=== PATIENT | male | born 1945 | race American Indian/Alaskan Native ===

== ENCOUNTER 2017-12-15 07:18 | Day surgery (SDC) | payer BC, SELFPAY ==
--- NOTE | 2017-12-14 09:14 | W.PIPPEYE ---
History of Present Illness Chief Complaint: Progressive decreased vision, right eye [facility] Medical History Cortical cataract of right eye (Chronic) Nuclear sclerotic cataract of right eye (Chronic) Social History Smoking/Tobacco Use Status: Never Surgical History S/P cataract surgery (Resolved 12/01/17) Colonoscopy - IV Sedation (11/13/15) Coronary Stent Repair of umbilical hernia Meds Home Medications Medication Instructions Recorded Confirmed Type aspirin [Aspir-81] 81 mg PO HS tab-cap 08/28/15 12/01/17 History atorvastatin 40 mg PO DAILY tab-cap 08/28/15 12/01/17 History clopidogrel [Plavix] 75 mg PO DAILY tab-cap 08/28/15 12/01/17 History losartan 100 mg PO HS tab-cap 08/28/15 12/01/17 History nitroglycerin [Nitrostat] 0.4 mg SUBLINGUAL ONCE tab-cap 08/28/15 11/25/17 History sildenafil [Viagra] 100 mg PO PRN PRN tab-cap 08/28/15 11/25/17 History diltiazem HCl 240 mg PO DAILY 11/25/17 12/01/17 History hydrochlorothiazide 25 mg PO DAILY 11/26/17 12/01/17 History Allergies Allergy/AdvReac Type Severity Reaction Status Date / Time ramipril AdvReac Unverified 12/01/17 06:55 Exam OCULAR EXAM:: Visual acuity at distance: 20/100 right eye, 20/20 left eye Pupils: Pupils equal, round, and reactive without afferent pupillary defect IOP: 15 right eye, 16 left eye Extraocular Motility: Normal Pertinent Slit Lamp Findings: Significant for a well-positioned PCIOL, left eye. A 2+ nuclear and 2+ cortical cataract is present in the right eye. Pupils dilate to 6 mm in each eye. Dilated Funduscopic Examination: Disc cupping is 0.45 OD, 0.5 OS. The optic nerves have good perfusion and normal color. The retinal vasculature is normal without significant tortuosity or abnormality. The maculas are normal in appearance with normal contour and foveal reflex appropriate for age. The peripheral retina and vitreous are normal. BRIGHTNESS ACUITY TESTING (BAT):: Off 20/40, right eye Low: 20/50 Medium: 20/50 High: 20/70 Assessment and Plan (1) Nuclear sclerotic cataract of right eye: Current visit: No Status: Chronic Assessment: Visually significant cataract, right eye. Plan: Cataract extraction with intraocular lens implantation, right eye (2) Cortical cataract of right eye: Current visit: No Status: Chronic Assessment: Visually significant cataract, right eye. Plan: Cataract extraction with intraocular lens implantation, right eye Note: NOTE:: The details of the planned surgery, including the risks, indications,limitations,expectations,outcome and possible complications were explained to the patient. The patient understands the complications including, but not limited to: infection, hemorrhage, posterior dislocation of the lens or nuclear fragments which may require the intervention of a vitreoretinal surgeon, possible loss of the eye, or from anesthetic complications. The patient has been made aware of the option of not having surgery, that vision following surgery may not be equal to that prior to surgery, and that the planned surgery may not achieve the intended results. Following this discussion, which the patient appeared to understand, the patient wishes to proceed with cataract surgery with lens implantation of the affected eye to improve and maximize vision.
[2017-12-15 07:37] VITALS: BP 144/87; PULSE 68; RESP 16; TEMP 37; O2SAT 96
[2017-12-15 08:44] VITALS: BP 144/87; PULSE 68; RESP 16; TEMP 37; O2SAT 96
[2017-12-15] MEDS: Balanced Salt Soln.-PLUS 500 ML BAG (09:09)
[2017-12-15] MEDS: Lidocaine 1% Pres-Free 5 ML VIAL (09:11)
[2017-12-15] MEDS: Lidocaine 2% Jelly 6 ML SYR (09:12)
[2017-12-15] MEDS: Povidone-Iodine Ophth 30 ML BTL (09:29)
--- NOTE | 2017-12-15 09:36 | PDOC.DSDIS_ITS ---
Discharge Plan Discharge Details Attending Provider: Negro Chatterjee Primary Care Provider: Vandana Valladares [place] Meds and New Rx's Prescriptions: No Action atorvastatin 40 MG tablet 40 mg PO DAILY RF: 0 clopidogrel [Plavix] 75 MG tablet 75 mg PO DAILY RF: 0 aspirin [Aspir-81] 81 MG tablet,delayed release (DR/EC) 81 mg PO HS RF: 0 sildenafil [Viagra] 100 MG tablet 100 mg PO PRN PRNRF: 0 nitroglycerin [Nitrostat] 0.4 MG tablet, sublingual 0.4 mg Sublingual ONCE RF: 0 losartan 100 MG tablet 100 mg PO HS RF: 0 diltiazem HCl 240 MG capsule,extended release 24hr 240 mg PO DAILY RF: 0 hydrochlorothiazide 25 MG tablet 25 mg PO DAILY RF: 0 naproxen sodium [Aleve] 220 mg Capsule 220 mg PO RF: 0 Discharge Instructions Stand Alone Forms: Post-op Topical Cataract, Inna Calloway (DSU) DS: Diagnosis Discharge Diagnosis (1) Nuclear sclerotic cataract of right eye: Status: Resolved (2) Cortical cataract of right eye: Status: Resolved
--- NOTE | 2017-12-15 09:37 | W.PM.OP ---
Date of service: 12/15/17 Time of Service: 09:37 Operative Note Pre-op diagnosis: Cataract, right eye Post-op diagnosis: same Procedure: Cataract extraction using phacoemulsification with intraocular lens implant, right eye Surgeon: Negro Chatterjee Anesthesia: MAC (with local sub-tenon's anesthetic injection) Pathology: none sent Complications: None Patient was transported to: same day Patient's condition: stable Indications: Progressive vision loss due to cataract, right eye Procedure Description: CATARACT SURGERY OPERATIVE REPORT PREOPERATIVE DIAGNOSIS: Nuclear/cortical cataract, right eye POSTOPERATIVE DIAGNOSIS: Same OPERATION: Cataract extraction using phacoemulsification with posterior chamber intraocular lens implant, right eye. IOL: IOL Clinical Research Administrator/Model: [employer] / ROYCE Tecnis ZCB00 IOL Power: +21.0 diopters IOL Serial Number: [id number] Optic Diameter: 6.0 mm Haptic/Overall Diameter: 13.0 mm PHACO INFO: Rui EnGeneICurion Vision System with OZil and Active Fluidics Cumulative Dispersed Energy (CDE): 6.17 seconds SURGEON: Negro Chatterjee MD, MAVERICK ANESTHESIA: Monitored Anesthesia Care (MAC), with local sub-tenon's anesthetic infiltration COMPLICATIONS: None SPECIMENS: None INDICATIONS FOR PROCEDURE: The patient is a 72-year-old gentleman with history of diminished visual acuity in both eyes secondary to the development of bilateral nuclear and cortical cataracts. He is already undergone cataract surgery in his left eye on 12/01/2017. Postoperatively he has regained corrected visual acuity of 20/20 in the left eye. He now presents for cataract surgery in the right eye. PROCEDURE: The correct surgical eye was identified and marked as the right eye and the pupil was dilated in the preoperative area using mydriatics, cycloplegics, and NSAIDS (except in aspirin allergic patients). The dilated pupil size was 7.0 mm. Oral sedation was administered in the form of an Imprimis MKO Melt (midazolam 3mg/ketamine 25mg/ondansetron 2mg). The patient was brought to the operating room where cardiopulmonary monitoring was instituted and surgical time-out was performed, confirming the correct operative eye and IOL power. Topical anesthesia was administered and ophthalmic povidone-iodine 5% was instilled into the conjunctival fornices. Lidocaine gel was applied to the cornea and the jos-ocular area was prepped with Betadine 10% solution and draped in the usual sterile fashion for intraocular surgery. Steri-strips were used to cover the lashes and lid margins and an adhesive eye drape was placed. Care was taken to isolate the lashes and lid margins under the Steri-strips and adhesive eye drape. A lid speculum was placed between the lids of the operative eye and the Asad-Maureen operating microscope was maneuvered into position. Annie scissors were then used to make a conjunctival buttonhole approximately 6mm posterior to the limbus in the inferonasal quadrant. Blunt dissection was carried out to expose bare sclera, and a blunt-tipped sub-tenon?s anesthesia cannula was introduced and passed posteriorly along the globe where non-preserved plain lidocaine was injected into posterior sub-Tenon?s space. A sideport knife was used to make a paracentesis port at the 7:00 postion and the anterior chamber was filled with Healon GV. A 2.4mm keratome knife was used to create a half-thickness groove at the limbus and then to construct a three-plane near-clear corneal tunnel extending 2.0mm into clear cornea at the 10:00 position. A flap was raised on the anterior capsule and capsulorhexis forceps were used to complete a continuous curvilinear capsulorhexis of 5.0mm. Balanced salt solution was then used to perform cortical cleaving hydrodissection and nuclear hydrodelineation until the lens could be freely rotated within the capsular bag. The lens nucleus was then disassembled and removed within the capsular bag and iris plane using phacoemulsification. Residual cortical material was removed using the 45-degree angled silicone I/A tip with 0.3mm port. The posterior capsule was carefully polished to remove as much residual lens epithelial cells as safely possible. The capsular bag was then inflated and the anterior chamber deepened with viscoelastic. The lens implant described above was inserted into the capsular bag using the ROYCE [place] Injector. A Kuglen hook was used to dial the IOL into position. Residual viscoelastic was then removed first from posterior to the IOL, then from the anterior chamber using the I/A handpiece. The lens implant was noted to center nicely within the capsular bag. The incisions were stromally hydrated, and the anterior chamber was reformed using BSS. Then 0.4cc of moxifloxacin 1.5mg/ml were injected into the capsular bag and anterior chamber. The incisions were checked with a Weck spear and found to be secure. Several drops of ophthalmic povidone-iodine 5% were then applied to the eye followed by two drops of Imprimis combination moxifloxacin/dexamethasone solution. The drapes were removed and a clear plastic protective eye shield was placed over the eye. The patient was then returned to [facility] in stable condition.
[2017-12-15 09:56] VITALS: BP 123/85; PULSE 67; RESP 16; TEMP 36.5; O2SAT 94
--- NOTE | 2017-12-15 14:08 | NUR.NOTE ---
Addendum entered by Mellissa Miller 12/15/17 14:15: 1415: wrong chart, please dismiss Original Note: Nursing Note: 1328: Dr. Lloyd in to see pt. and after talking to Nancy Castellanos, from [facility], who expressed concern about if pt. were to go home (specifically on pain medications or if pt. were to run a fever) she would be home alone, case decided to be postponed until it can be arranged for patient to stay overnight for observation
== END 2017-12-15 10:12 ==
LOC: SUR 07:19
PROVIDERS: PCP Family Medicine; Visit Provider Ophthalmology
PROC: (CPT 66984; principal; 2017-12-15 09:30)
DX: H25.11 Age-related nuclear cataract, right eye (principal); H25.011 Cortical age-related cataract, right eye; I10 Essential (primary) hypertension
CPT/HCPCS: 66984; V2632

== ENCOUNTER 2017-12-26 12:40 | Outpatient (REF) | payer BC, SELFPAY ==
[2017-12-26 13:21] LABS: Anion Gap 9.9 mmol/L (3-11); BUN 24 mg/dL (7-18); CO2 26.1 mmol/L (21.0-32.0); CREATININE 1.22 mg/dL (0.70-1.30); Chloride 104 mmol/L (98-107); Estimated GFR 58.39 (mL/min/1.73m2); Glucose 112 mg/dL (70-100); Potassium 4.6 mmol/L (3.5-5.1); Sodium 140 mmol/L (136-145)
[2017-12-26 13:37] LABS: Hemoglobin A1C 5.9 % (4.5-6.2)
== END 2017-12-26 13:00 ==
LOC: NCHCN 12:40
PROVIDERS: PCP Family Medicine; Visit Provider Family Medicine
DX: I10 Essential (primary) hypertension (principal); R73.01 Impaired fasting glucose
CPT/HCPCS: 80048; 83036

== ENCOUNTER 2018-01-26 17:41 | Outpatient (REF) | payer BC, SELFPAY ==
--- NOTE | 2018-01-26 11:34 | SKI_PTH ---
PATIENT: Taco Khan LOC: [facility] U#:[id number] AGE/SX: 72/M ROOM: RE01/26/[address]: ETHEL Hood : 1945 BED: DIS: 01/26/2018 SPEC #: [id number] RECD: 01/26/18 17:47 STATUS: SHANE REQ #: [id number] KWABENA: 01/26/18 11:[address]: Jerod Victoria DEPT: Surgical Specimen RECD BY: Shala Clarke ENTERED: 01/26/18 17:48 SP TYPE: DUANE PUENTE DR: Vandana Valladares Tissues: 1 - SKIN BIOPSY(SHAVE/PUNCH) 2 - SKIN BIOPSY(SHAVE/PUNCH) 3 - SKIN BIOPSY(SHAVE/PUNCH) 4 - SKIN BIOPSY(SHAVE/PUNCH) Procedures: SKIN LEVEL 4 Comments: [id number]
== END 2018-01-26 18:01 ==
LOC: LBN 17:41
PROVIDERS: PCP Family Medicine; Visit Provider Physician Assistant
DX: C44.212 Basal cell carcinoma of skin of right ear and external auricular canal (principal); L57.0 Actinic keratosis; L82.1 Other seborrheic keratosis
CPT/HCPCS: 88305

== ENCOUNTER 2018-03-09 12:25 | Outpatient (REF) | payer BC, SELFPAY ==
--- NOTE | 2018-03-09 08:50 | SKI_PTH ---
PATIENT: Taco Khan LOC: [facility] U#:[id number] AGE/SX: 72/M ROOM: RE03/09/[address]: Gurpreet Tinoco DO : 1945 BED: DIS: 03/09/2018 SPEC #: [id number] RECD: 03/10/18 11:38 STATUS: SHANE REQ #: [id number] KWABENA: 03/09/18 08:[address]: Gurpreet Tinoco DEPT: Surgical Specimen RECD BY: Shala Clarke ENTERED: 03/10/18 11:39 SP TYPE: DUANE OT DR: Vandana Valladares Tissues: 1 - SKIN BIOPSY(SHAVE/PUNCH) Procedures: SKIN LEVEL 4 Comments: [id number]
== END 2018-03-09 12:45 ==
LOC: LBN 12:25
PROVIDERS: PCP Family Medicine; Visit Provider Otolaryngology Otolaryngology/Facial Plastic Surgery
DX: L82.1 Other seborrheic keratosis (principal)
CPT/HCPCS: 88305

== ENCOUNTER 2018-05-16 18:50 | Inpatient (IN) | payer BC, SELFPAY ==
[2018-05-16] VITALS (24 sets, daily range): BP systolic 127–153; BP diastolic 64–87; PULSE 63–76; RESP 14–20; TEMP 37; O2SAT 90–100
--- NOTE | 2018-05-16 10:55 | DI.RAD_ITS ---
SYMPTOM/DIAGNOSIS: S/P CHEST TUBE CHEST X-RAY: 05/16/18 There has been interval placement of a right chest tube. There is a small right apical pneumothorax. The lungs are otherwise clear. Heart size and pulmonary vasculature are within normal limits. There are multiple right rib fractures again appreciated. IMPRESSION: Interval placement of right chest tube with small residual right apical pneumothorax.
--- NOTE | 2018-05-16 19:15 | DI.CT_ITS ---
SYMPTOM/DIAGNOSIS: FALL, SEVERE RT RIB AND RT UPPER ABD PAIN CT CHEST, ABDOMEN AND PELVIS: No priors. CT ABDOMEN AND PELVIS: The liver is normal in size. No hepatic mass or laceration is seen. The portal superior mesenteric and splenic veins are patent. The gallbladder is negative. No biliary ductal dilatation seen. The pancreas, spleen and adrenal glands are unremarkable. The kidneys show normal and symmetric enhancement. No evidence of a solid renal mass or obstruction seen. The urinary bladder is intact. The reproductive organs are unremarkable. There is diverticulosis of the colon but no evidence of acute diverticulitis. No evidence of bowel obstruction or inflammation. There is a normal appendix present. The abdominal aorta is of normal caliber. No significant abdominal or pelvic adenopathy, ascites or pneumoperitoneum seen. No acute fractures seen in the lumbar spine or pelvis. Note is made of Grade 1 spondylolisthesis of L5 on S1. Multi-level degenerative changes are seen in the lumbar spine. Note is made of bilateral fat containing inguinal hernia. IMPRESSION: No evidence of an acute abdominal or pelvic process. CT CHEST: The thoracic aorta is of normal caliber. No aneurysm or dissection seen. Heart size is within normal limits. No significant pericardial effusion seen. No significant thoracic adenopathy is identified. There is a moderate size right pneumothorax. No definite left pneumothorax is identified. There are bilateral pulmonary infiltrates seen in the dependent portions of the lungs. This may represent atelectasis. Pulmonary contusions cannot be excluded. There is a small amount of subcutaneous air along the right lateral chest wall. There are nondisplaced fractures involving the lateral aspects of the right 5th and 6th ribs. There are mildly displaced fractures involving the lateral aspects of the right 7th and 8th ribs and there is a nondisplaced fracture involving the lateral aspect of the right 9th rib laterally. IMPRESSION: 1. Multiple contiguous right rib fractures 2. Resulting moderate size right pneumothorax 3. Pulmonary opacities seen in the lung bases bilaterally. These may represent atelectasis but pulmonary contusions cannot be excluded. 4. Subcutaneous emphysema along the right lateral chest wall.
[2018-05-16] MEDS: MORPHine 10 MG/ML VIAL 4 MG IVP (19:32)
[2018-05-16] MEDS: Ondansetron 4 MG/2 ML VIAL (19:44)
[2018-05-16] MEDS: Lidocaine 5% Patch 1 PATCH TP (19:51)
[2018-05-16] MEDS: ACETAMINOPHEN 1,000 MG/100 ML BTL 400 MG IVPB (19:53)
[2018-05-16 20:15] LABS: Abs Immature Grans 0.04 k/cumm (0.0-0.09); Absolute Basophil Count 0.02 k/cumm (0.0-0.2); Absolute Eosinophil Count 0.24 k/cumm (0.0-0.7); Absolute Lymphocyte Count 2.41 k/cumm (1.2-3.4); Absolute Monocyte Count 0.89 k/cumm (0.11-0.7); Absolute Neutrophil Count 5.69 k/cumm (1.2-6.7); Basophils % 0.2; Eosinophils % 2.6; HCT 40.3 % (40.0-50.0); HGB 13.3 g/dL (13.5-17.5); Immature Grans % 0.4; Lymphocytes % 25.9; Mean Corpuscular Hemoglobin 30.4 pg (27.0-33.0); Mean Corpuscular Volume 92.2 fL (80-95); Mean Platelet Volume 9.6 fL (8.0-11.0); Monocytes % 9.6; Neutrophils % 61.3; Platelet Count 216 x1000/uL (130-400); RBC 4.37 m/cumm (4.50-6.00); RBC Distribution Width 12.8 % (11.8-14.1); White Blood Cell Count 9.29 k/cumm (4.4-10.8)
--- NOTE | 2018-05-16 20:23 | ED.GENADUL_ITS ---
Discharge Plan Disposition Patient Disposition: [facility] INPATIENT Condition: Good Discharge Details Chief Complaint: Chest/Rib Clinical Impression: Pneumothorax, Fracture of multiple ribs of right side Reason For Visit: 5 RIGHT RIB FRACTURES Admit Date/Time: 05/16/18 22:20 Admit Provider: Efren Singh III Attending Provider: Efren Singh III Primary Care Provider: Vandana Valladares ED Provider: Alejandro Raines Discharge Data Discharge Date/Time-TO BE ENTERED AT DEPARTURE: 05/17/18 00:52 Medical Decision Making This is a 72-year-old male with a past medical history of coronary artery disease and stents who presents today for evaluation of right rib pain. Roughly 1 hour prior to arrival the patient slipped on ice, and landed on his right ribs and had notable severe pain. He came in for further evaluation. The patient has severe notable pain throughout his right ribs, no paradoxical chest wall movement. The pain is located near the right hemidiaphragm, and I am concerned for potential involvement with the liver. Patient no longer takes Plavix but does take aspirin, because of the amount of pain that he has, and the location we will get a CT scan to rule out any acute fracture, process or bleed. We will treat with Lidoderm patch, narcotics, and Tylenol for management of his pain. Radiology has contacted us and states that there is evidence of 5 rib fractures on the right, as well as a pneumothorax which they are calling 45%. We have contacted the surgeon Dr. Singh and discussed the case with him. He will come into place a chest tube. We have contacted anesthesia and they will block the ribs for pain control. Patient continues to remain hemodynamically stable and shows no signs of tension pneumothorax. Patient will be admitted for further management. I have extensively reviewed the treatment plan with the patient. I have addressed all patient concerns at this time. I have also discussed the plan with the admitting physician and they agree with the current assessment and plan and have agreed to assume responsibility for the patient. All parties demonstrate verbal understanding and agreement with our assessment and plan at this time. FINDINGS: Lungs: Bilateral dependent atelectasis is appreciated. Patchy and groundglass airspace opacities are noted at the bilateral lung bases, which may represent atelectasis versus contusion changes. Pleural space: There is a moderately sized right pneumothorax. Increased left subdural lucency may be related to artifact versus a trace left pneumothorax. Heart: There is mild atherosclerotic calcification of the coronary arteries. There is calcification of the aortic valve annulus. The heart is not enlarged. No pericardial thickening or effusion. Pulmonary arteries: Normal in course and caliber. Aorta: The aorta demonstrates mild atherosclerotic calcification. Normal course and caliber to the aorta otherwise. Lymph nodes: No adenopathy. Bones/joints: Fractures of the right fifth, sixth, seventh, eighth, and ninth, ribs; worse at the eighth rib where there is approximately half shaft width lateral displacement of the distal fracture fragment. No other acutely displaced skeletal fractures. Multilevel degenerative changes of the thoracic spine are noted. Soft tissues: Diffuse soft tissue swelling and soft tissue emphysema throughout the right lateral thoracic wall. Upper abdomen: Please review abdomen and pelvic CT performed concomitantly. IMPRESSION: 1. Moderately sized right pneumothorax. 2. Increased diffuse left subpleural lucency may be related to volume averaging artifact versus a trace left pneumothorax. Followup recommended. 3. Bilateral lower lobe atelectasis with concern for superimposed pulmonary contusions in this post traumatic setting. 4. Multilevel right rib fractures, as detailed above. 5. Soft tissue swelling and soft tissue emphysema throughout the right lateral thoracic wall. FINDINGS: Lower thorax: No acute findings. ABDOMEN: Liver: Normal. No mass. Gallbladder and bile ducts: Normal. No calcified stones. No ductal dilation. Pancreas: Normal. No ductal dilation. Spleen: Normal. No splenomegaly. Adrenals: Normal. No mass. Kidneys and ureters: Normal. No hydronephrosis. Stomach and bowel: No bowel wall thickening, obstruction, or other acute pathology. Diffuse colonic diverticulosis is present. Appendix: No evidence of appendicitis. PELVIS: Bladder: Unremarkable as visualized. Reproductive: Unremarkable as visualized. ABDOMEN and PELVIS: Intraperitoneal space: Normal. No free air. No significant fluid collection. Bones/joints: No acute skeletal pathology. Moderate multilevel degenerative changes of the spine, as manifested by multilevel anterior osteophytes and multilevel decrease in intervertebral disc space. There is a grade 1 chronic anterolisthesis of L5 in relation to S1 with extensive degenerative disease as manifested by fusion of L5-S1 and a large anterior osteophyte. 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 Soft tissues: Unremarkable. Vasculature: The vasculature demonstrates diffuse moderate atherosclerotic calcification. Lymph nodes: Normal. No enlarged lymph nodes. IMPRESSION: 1. Negative for acute abdominopelvic pathology. 2. Chronic/incidental findings as detailed above. Dictated and Authenticated by: Gino Aviles MD. HPI General Date/Time Provider Initiated Documentation: 05/16/18 18:51 . HPI Narrative: This is a 72-year-old male with past medical history of cardiac disease, high cholesterol, and hypertension, who presents today for evaluation of right-sided chest pain after fall. Patient states that he was with his earlier today when he slipped on the ice after dinner and landed on his right chest. He immediately lost his breath, and had significant pain on his right si de of his chest. He immediately came for further evaluation. He denies any cough, hemoptysis, or lower abdominal pain. Pain is made worse with movement, palpation, and deep breath. He is not taking any medications for improvement of symptoms. He has no other complaints at this time. He states that this does not feel anything like his previous heart disease. He denies any IV or illicit drug use, recent surgery, or pertinent family history. Patient denies hitting his head, he denies any loss of consciousness. Related Data Home Medications Medication Instructions Recorded Confirmed aspirin [Aspir-81] 81 mg PO HS tab-cap 08/28/15 05/16/18 atorvastatin 40 mg PO DAILY tab-cap 08/28/15 05/16/18 clopidogrel [Plavix] 75 mg PO DAILY tab-cap 08/28/15 05/16/18 losartan 100 mg PO HS tab-cap 08/28/15 05/16/18 nitroglycerin [Nitrostat] 0.4 mg SUBLINGUAL ONCE tab-cap 08/28/15 05/16/18 sildenafil [Viagra] 100 mg PO PRN PRN tab-cap 08/28/15 05/16/18 diltiazem HCl 240 mg PO DAILY 11/25/17 05/16/18 hydrochlorothiazide 25 mg PO DAILY 11/26/17 05/16/18 naproxen sodium [Aleve] 220 mg PO 12/15/17 Allergies Allergy/AdvReac Type Severity Reaction Status Date / Time ramipril AdvReac Unverified 05/16/18 19:09 General Stated Complaint: Chest/Rib JOHN: 3 Review of Systems Review of Systems All systems reviewed & are unremarkable except as noted in HPI and below PFSH Medical History Cortical cataract of right eye (Resolved) Nuclear sclerotic cataract of right eye (Resolved) Surgical History S/P cataract surgery (Resolved 12/01/17) Colonoscopy - IV Sedation (11/13/15) Coronary Stent Repair of umbilical hernia Social History Smoking and Tabacco status: Never Exam Narrative Exam Narrative: 1.Const: Well-nourished, Well-developed, appearing stated age 2.Eyes: PERRL, no conjunctival injection, and symmetrical lids. 3.ENT: Atraumatic external nose and ears. Moist MM. Neck: Symmetric, trachea midline, No thyromegaly. There is no evidence of raccoon eyes, booth sign, CSF rhinorrhea, mastoid tenderness, cranial crepitus, hemotympanum, exophthalmos, or hyphema. 4.CVS: Regular rate and rhythm, Normal s1 and s2. No murmurs, carotid bruits, rubs, or gallops. Radial pulses 2+ bilaterally and symmetric. Dorsalis pedis pulses 2+ bilaterally and symmetric. 2+ capillary refill. No evidence of distant heart sounds. No extremity edema. No evidence of gross hemorrhage. 5.RESP: Airway clear, no obstructions. No abrasions or ecchymosis. Chest movement symmetric with respirations. Notable chest wall tenderness on the right lateral chest, extending from ribs 4 through 8. Trachea midline. No crepitus. No step offs. No paradoxical movements. Lungs are clear to auscultation bilaterally. No rales, rhonchi, wheezing or stridor. Breath sound symmetric. No Sucking chest wounds. No clinical evidence of significant chest trauma. 6.GI: Soft,Nondistended, No hepatosplenomegaly. No guarding or rebound. Mild right upper quadrant tenderness near the insertion of the muscles on the right 7.MSK: Normocephalic/Atraumatic, Extremities w/o deformity or ttp No cyanosis or clubbing, Normal movement of all extremities 8.Skin: Warm, Dry. No rashes or lesions. 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 Sensation grossly intact, no focal neurologic deficits. 10.Psych: (AAO) x3. Appropriate mood and affect Course Vital Signs Temperature 37.0 C 05/16/18 19:02 Pulse 63 05/16/18 19:02 Respiratory Rate 20 05/16/18 19:02 Blood Pressure 144/66 H 05/16/18 19:02 Pulse Oximetry 99 05/16/18 19:02 Temperature 37.0 C 05/16/18 19:02 Temperature Source Temporal Artery Scan 05/16/18 19:02 Pulse 63 05/16/18 19:02 Respiratory Rate 20 05/16/18 19:02 Respiratory Effort 05/16/18 19:06 Respiratory Depth Shallow 05/16/18 19:06 Blood Pressure 144/66 H 05/16/18 19:02 Pulse Oximetry 99 05/16/18 19:02 Oxygen Delivery Method Room Air 05/16/18 19:02 Oxygen Flow Rate 0 05/16/18 19:02 Pain Level 10 05/16/18 19:32
[2018-05-16 20:33] LABS: ALT 39 U/L (12-78); AST 31 U/L (15-37); Albumin 3.6 g/dL (3.4-5.0); Alkaline Phosphatase 88 U/L (46-116); Anion Gap 8.2 mmol/L (3-11); BUN 27 mg/dL (7-18); Bilirubin, Total 0.7 mg/dL (0.2-1.0); CO2 28.8 mmol/L (21.0-32.0); CREATININE 1.22 mg/dL (0.70-1.30); Calcium 8.1 mg/dL (8.5-10.1); Chloride 101 mmol/L (98-107); Estimated GFR 58.39 (mL/min/1.73m2); Glucose 97 mg/dL (70-100); Potassium 3.7 mmol/L (3.5-5.1); Sodium 138 mmol/L (136-145); Total Protein 7.1 g/dL (6.4-8.2)
[2018-05-16] MEDS: Omnipaque 350 MG/ML 100 ML BTL IJ (21:00)
--- NOTE | 2018-05-16 21:37 | DI.VRAD_ITS ---
Addendum created by Gino Aviles MD on 05/16/2018 9:39:07 PM EST THIS REPORT CONTAINS FINDINGS THAT MAY BE CRITICAL TO PATIENT CARE. The findings were verbally communicated via telephone conference with EBONIE OSBORN at 9:39 PM EST on 05/16/2018. The findings were acknowledged and understood. Initial report created on 05/16/2018 9:36:30 PM EST EXAM: CT Chest With Contrast EXAM DATE/TIME: 05/16/2018 7:17 PM CLINICAL HISTORY: 72 years old, male; Injury or trauma; Fall; Initial encounter; Blunt; Upper; Blunt trauma (contusions or hematomas); Injury details: Fall on ice, about 1900hrs; Patient HX: Fall, severe right rib and upper abd pain TECHNIQUE: Axial computed tomography images of the chest with intravenous contrast. Coronal and sagittal reformatted images were created and reviewed. COMPARISON: No relevant prior studies available. FINDINGS: Lungs: Bilateral dependent atelectasis is appreciated. Patchy and groundglass airspace opacities are noted at the bilateral lung bases, which may represent atelectasis versus contusion changes. Pleural space: There is a moderately sized right pneumothorax. Increased left subdural lucency may be related to artifact versus a trace left pneumothorax. Heart: There is mild atherosclerotic calcification of the coronary arteries. There is calcification of the aortic valve annulus. The heart is not enlarged. No pericardial thickening or effusion. Pulmonary arteries: Normal in course and caliber. Aorta: The aorta demonstrates mild atherosclerotic calcification. Normal course and caliber to the aorta otherwise. Lymph nodes: No adenopathy. Bones/joints: Fractures of the right fifth, sixth, seventh, eighth, and ninth, ribs; worse at the eighth rib where there is approximately half shaft width lateral displacement of the distal fracture fragment. No other acutely displaced skeletal fractures. Multilevel degenerative changes of the thoracic spine are noted. Soft tissues: Diffuse soft tissue swelling and soft tissue emphysema throughout the right lateral thoracic wall. Upper abdomen: Please review abdomen and pelvic CT performed concomitantly. IMPRESSION: 1. Moderately sized right pneumothorax. 2. Increased diffuse left subpleural lucency may be related to volume averaging artifact versus a trace left pneumothorax. Followup recommended. 3. Bilateral lower lobe atelectasis with concern for superimposed pulmonary contusions in this post traumatic setting. 4. Multilevel right rib fractures, as detailed above. 5. Soft tissue swelling and soft tissue emphysema throughout the right lateral thoracic wall. EXAM: CT Abdomen and Pelvis With Contrast EXAM DATE/TIME: 05/16/2018 7:17 PM CLINICAL HISTORY: 72 years old, male; Injury or trauma; Fall; Initial encounter; Blunt; Upper; Blunt trauma (contusions or hematomas); Injury details: Fall on ice, about 1900hrs; Patient HX: Fall, severe right rib and upper abd pain TECHNIQUE: Axial computed tomography images of the abdomen and pelvis with intravenous contrast. Coronal and sagittal reformatted images were created and reviewed. COMPARISON: No relevant prior studies available. FINDINGS: Lower thorax: No acute findings. ABDOMEN: Liver: Normal. No mass. Gallbladder and bile ducts: Normal. No calcified stones. No ductal dilation. Pancreas: Normal. No ductal dilation. Spleen: Normal. No splenomegaly. Adrenals: Normal. No mass. Kidneys and ureters: Normal. No hydronephrosis. Stomach and bowel: No bowel wall thickening, obstruction, or other acute pathology. Diffuse colonic diverticulosis is present. Appendix: No evidence of appendicitis. PELVIS: Bladder: Unremarkable as visualized. Reproductive: Unremarkable as visualized. ABDOMEN and PELVIS: Intraperitoneal space: Normal. No free air. No significant fluid collection. Bones/joints: No acute skeletal pathology. Moderate multilevel degenerative changes of the spine, as manifested by multilevel anterior osteophytes and multilevel decrease in intervertebral disc space. There is a grade 1 chronic anterolisthesis of L5 in relation to S1 with extensive degenerative disease as manifested by fusion of L5-S1 and a large anterior osteophyte. 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 Soft tissues: Unremarkable. Vasculature: The vasculature demonstrates diffuse moderate atherosclerotic calcification. Lymph nodes: Normal. No enlarged lymph nodes. IMPRESSION: 1. Negative for acute abdominopelvic pathology. 2. Chronic/incidental findings as detailed above. Dictated and Authenticated by: Gino Aviles MD. Ordering:JEANNE Allen MD
[2018-05-16] MEDS: Ketorolac 30 MG/ML VIAL 15 MG IVP (21:41)
[2018-05-16] MEDS: Bupivacaine LIPOSOME/PF 133 MG/10 ML VIAL IJ (22:20)
[2018-05-16] MEDS: Bupivacaine 0.5% Pres-Free 30 ML VIAL (22:20)
--- NOTE | 2018-05-16 22:46 | W.PM.HP.N ---
Date of service: 05/16/18 Time of Service: 22:46 Assessment and Plan (1) Fall from slipping on ice: Start date: 05/16/18 Start time: 22:51 Current visit: Yes Status: Acute sustained 5 rib fractures (2) Fracture of five ribs of right side: Start date: 05/16/18 Start time: 22:51 Current visit: Yes Status: Acute supportive rib block done by anesthesia (3) Traumatic hemopneumothorax, initial encounter: Start date: 05/16/18 Start time: 22:52 Current visit: Yes Status: Acute right chest tube History of Present Illness Chief Complaint: sp fall on ice Consults Consult date: 05/16/18 Requesting physician: Alejandro Raines Narrative: walking behind his he slipped and fell on the ice Review of Systems Constitutional Reports as per HPI Respiratory Reports as per HPI, Reports pain on inspiration and Reports pain with cough PFSH Medical History Cortical cataract of right eye (Resolved) Nuclear sclerotic cataract of right eye (Resolved) Surgical History S/P cataract surgery (Resolved 12/01/17) Colonoscopy - IV Sedation (11/13/15) Coronary Stent Repair of umbilical hernia Social History Smoking and Tabacco status: Never Meds Home Medications Medication Instructions Recorded Confirmed Type aspirin [Aspir-81] 81 mg PO HS tab-cap 08/28/15 05/16/18 History atorvastatin 40 mg PO DAILY tab-cap 08/28/15 05/16/18 History clopidogrel [Plavix] 75 mg PO DAILY tab-cap 08/28/15 05/16/18 History losartan 100 mg PO HS tab-cap 08/28/15 05/16/18 History nitroglycerin [Nitrostat] 0.4 mg SUBLINGUAL ONCE tab-cap 08/28/15 05/16/18 History sildenafil [Viagra] 100 mg PO PRN PRN tab-cap 08/28/15 05/16/18 History diltiazem HCl 240 mg PO DAILY 11/25/17 05/16/18 History hydrochlorothiazide 25 mg PO DAILY 11/26/17 05/16/18 History naproxen sodium [Aleve] 220 mg PO 12/15/17 History Allergies Allergy/AdvReac Type Severity Reaction Status Date / Time ramipril AdvReac Unverified 05/16/18 19:09 Exam Const General: cooperative Nutritional Appearance: obese Orientation: alert, awake and oriented x3 Resp Effort & Inspection: labored Auscultation: breath sounds absent on the right and rub present Tactile Fremitus: tactile fremitus present Results Labs : 05/16/18 20:05 05/16/18 20:05 Laboratory Results - last 24 hr 05/16/18 05/16/18 20:05 20:05 WBC 9.29 RBC 4.37 L Hgb 13.3 L Hct 40.3 MCV 92.2 MCH 30.4 MCHC 33.0 RDW 12.8 Plt Count 216 MPV 9.6 Immature Gran % 0.4 Neutrophils % 61.3 Lymphocytes % 25.9 Monocytes % 9.6 Eosinophils % 2.6 Basophils % 0.2 Absolute Neutrophils 5.69 Absolute Lymphocytes 2.41 Absolute Monocytes 0.89 H Absolute Eosinophils 0.24 Absolute Basophils 0.02 Sodium 138 Potassium 3.7 Chloride 101 Carbon Dioxide 28.8 Anion Gap 8.2 BUN 27 H Creatinine 1.22 Estimated GFR/1.73 m2 58.39 Glucose 97 Calcium 8.1 L Total Bilirubin 0.7 AST 31 ALT 39 Alkaline Phosphatase 88 Total Protein 7.1 Albumin 3.6 Last Vital Signs Temp 37.0 C 05/16/18 19:53 Pulse 63 05/16/18 20:53 Resp 20 05/16/18 19:02 BP 133/64 05/16/18 20:53 Pulse Ox 99 05/16/18 20:53 Procedures Chest Tube Chest Tube 1: Chest tube location: Anterior Chest Chest tube procedure: Yes betadine prep and sterile drapes applied Tube sutured to skin: Yes Sterile dressing applied: Yes Anesthesia: 1% Lidocaine Incision made with: #11 blade Post procedure: sutured to skin Bright of air heard: Yes Tube Drainage: blood Amount of initial drainage (ml): 10 Post procedure CXR?: Yes Patient tolerated procedure: Yes
--- NOTE | 2018-05-16 23:02 | DI.VRAD_ITS ---
EXAM: XR Chest, 1 View EXAM DATE/TIME: 05/16/2018 10:27 PM CLINICAL HISTORY: 72 years old, male; Device placement; Chest tube; Patient HX: S/P chest tube TECHNIQUE: XR of the chest, 1 view. COMPARISON: No relevant prior studies available. FINDINGS: Tubes, catheters and devices: There has been interval placement of a right chest tube with intrathoracic side ports. Lungs: The lungs appear grossly clear. Pleural space: Persistent small right pneumothorax is appreciated. No large effusions. Heart/Mediastinum: Cardiomediastinal silhouette is slightly magnified due to technique. Bones/joints: Multilevel right rib fractures are again appreciated. IMPRESSION: 1. Status post placement of a right chest tube with a small residual right pneumothorax still present. 2. Stable findings as detailed above. Dictated and Authenticated by: Gino Aviles MD. Ordering:JAGDEEP Schwartz MD
[2018-05-17] VITALS (42 sets, daily range): BP systolic 126–155; BP diastolic 61–76; PULSE 61–95; RESP 13–21; TEMP 36.5–37.9; O2SAT 91–98
[2018-05-17 01:24] LABS: Abs Immature Grans 0.06 k/cumm (0.0-0.09); Absolute Basophil Count 0.02 k/cumm (0.0-0.2); Absolute Eosinophil Count 0.03 k/cumm (0.0-0.7); Absolute Lymphocyte Count 1.47 k/cumm (1.2-3.4); Absolute Monocyte Count 1.17 k/cumm (0.11-0.7); Absolute Neutrophil Count 12.59 k/cumm (1.2-6.7); Basophils % 0.1; Eosinophils % 0.2; HCT 40.7 % (40.0-50.0); HGB 13.6 g/dL (13.5-17.5); Immature Grans % 0.4; Lymphocytes % 9.6; Mean Corp. HGB Concentration 33.4 g/dL (32.0-36.0); Mean Corpuscular Hemoglobin 30.5 pg (27.0-33.0); Mean Corpuscular Volume 91.3 fL (80-95); Mean Platelet Volume 9.6 fL (8.0-11.0); Monocytes % 7.6; Neutrophils % 82.1; Platelet Count 219 x1000/uL (130-400); RBC 4.46 m/cumm (4.50-6.00); RBC Distribution Width 12.8 % (11.8-14.1); White Blood Cell Count 15.34 k/cumm (4.4-10.8)
[2018-05-17 01:30] LABS: Anion Gap 10.2 mmol/L (3-11); BUN 29 mg/dL (7-18); CO2 25.8 mmol/L (21.0-32.0); Calcium 8.8 mg/dL (8.5-10.1); Chloride 100 mmol/L (98-107); Estimated GFR 59.51 (mL/min/1.73m2); Glucose 119 mg/dL (70-100); Potassium 4.2 mmol/L (3.5-5.1); Sodium 136 mmol/L (136-145)
[2018-05-17] MEDS: ACETAMINOPHEN 1,000 MG/100 ML BTL 400 MG IVPB ×4 (02:05→20:09)
[2018-05-17 07:23] LABS: Anion Gap 9.8 mmol/L (3-11); BUN 30 mg/dL (7-18); CO2 26.2 mmol/L (21.0-32.0); CREATININE 1.18 mg/dL (0.70-1.30); Calcium 8.6 mg/dL (8.5-10.1); Chloride 102 mmol/L (98-107); Glucose 111 mg/dL (70-100); Sodium 138 mmol/L (136-145)
--- NOTE | 2018-05-17 08:05 | DI.RAD_ITS ---
SYMPTOM/DIAGNOSIS: RIGHT SIDED CHEST TUBE PLACED ON WATER SEAL CHEST X-RAY: 05/17/18 AT 7:59 A.M. Comparison with the day prior. Heart size and pulmonary vasculature are within normal limits. There is again seen a right chest tube in place. There has been interval increase in size of the right pneumothorax but it remains small. The lungs are clear. There are multiple right rib fractures noted. IMPRESSION: Slight interval increase in size of small right pneumothorax. Distance to the right apex is now 2.1 cm
--- NOTE | 2018-05-17 08:06 | PGE_ITS ---
Date of Service Date of service: 05/17/18 Time of Service: 08:02 Assessment and Plan (1) Subcutaneous emphysema due to trauma: Start date: 05/17/18 Start time: 08:04 Current visit: Yes Status: Acute improved (2) Traumatic hemopneumothorax, initial encounter: Start date: 05/17/18 Start time: 08:04 Current visit: Yes Status: Acute cxr showes it resolved chest tube placed to water seal repeat cxr done will wait for ORP (3) Fracture of five ribs of right side: Start date: 05/17/18 Start time: 08:04 Current visit: Yes Status: Acute pain well controlled- block placed by anesthesia (4) Fall from slipping on ice: Start date: 05/17/18 Start time: 08:05 Current visit: Yes Status: Acute Subjective Patient reports: no new complaints and pain is less Exam Const General: cooperative Orientation: alert, awake and oriented x3 Resp Effort & Inspection: normal respiratory effort Auscultation: clear to auscultation bilaterally Objective Objective Clinical Data: Abnormal lab results 05/16/18 05/16/18 05/17/18 Range/Units 20:05 20:05 01:15 WBC (4.4-10.8) k/cumm RBC 4.37 L (4.50-6.00) m/cumm Hgb 13.3 L (13.5-17.5) g/dL Absolute Neutrophils (1.2-6.7) k/cumm Absolute Monocytes 0.89 H (0.11-0.7) k/cumm BUN 27 H 29 H (7-18) mg/dL Glucose 119 H (70-100) mg/dL Calcium 8.1 L (8.5-10.1) mg/dL 05/17/18 05/17/18 Range/Units 01:15 06:35 WBC 15.34 H D (4.4-10.8) k/cumm RBC 4.46 L (4.50-6.00) m/cumm Hgb (13.5-17.5) g/dL Absolute Neutrophils 12.59 H (1.2-6.7) k/cumm Absolute Monocytes 1.17 H (0.11-0.7) k/cumm BUN 30 H (7-18) mg/dL Glucose 111 H (70-100) mg/dL Calcium (8.5-10.1) mg/dL Vital Signs Temperature 36.5 C 05/17/18 04:40 Temperature Source Tympanic 05/17/18 04:40 Pulse 74 05/17/18 04:40 Pulse 72 05/17/18 00:40 Respiratory Rate 16 05/17/18 04:40 Respiratory Effort 05/17/18 00:56 Respiratory Depth Normal 05/17/18 00:56 Respiratory Pattern Normal 05/17/18 00:56 Blood Pressure 136/70 05/17/18 04:40 Blood Pressure Mean 79 05/17/18 01:16 Blood Pressure Position Supine 05/17/18 00:56 Pulse Oximetry 97 05/17/18 05:12 Oxygen Delivery Method Room Air 05/17/18 04:40 Oxygen Flow Rate 0 05/17/18 04:40 Pain Level 8 05/17/18 04:40 Comment 05/17/18 04:40 Intake & Output 05/16/18 05/16/18 05/17/18 11:59 23:59 11:59 Intake Total 100 / 100 Output Total 775 / 775 Balance 100 / 100 -775 / -775 Weight 107.048 kg 108.3 kg Intake: IV 100 / 100 Output: Urine 775 / 775 Other: Urine Color Light Dorcas Urine Appearance Clear Urine Odor None Voiding Methods Urinal Laboratory Results WBC 15.34 k/cumm (4.4-10.8) H D 05/17/18 01:15 RBC 4.46 m/cumm (4.50-6.00) L 05/17/18 01:15 Hgb 13.6 g/dL (13.5-17.5) 05/17/18 01:15 Hct 40.7 % (40.0-50.0) 05/17/18 01:15 MCV 91.3 fL (80-95) 05/17/18 01:15 MCH 30.5 pg (27.0-33.0) 05/17/18 01:15 MCHC 33.4 g/dL (32.0-36.0) 05/17/18 01:15 RDW 12.8 % (11.8-14.1) 05/17/18 01:15 Plt Count 219 x1000/uL (130-400) 05/17/18 01:15 MPV 9.6 fL (8.0-11.0) 05/17/18 01:15 Immature Gran % 0.4 05/17/18 01:15 Neutrophils % 82.1 05/17/18 01:15 Band Neutrophils % Cancelled 05/16/18 22:23 Lymphocytes % 9.6 05/17/18 01:15 Atypical Lymphs % Cancelled 05/16/18 22:23 Monocytes % 7.6 05/17/18 01:15 Eosinophils % 0.2 05/17/18 01:15 Basophils % 0.1 05/17/18 01:15 Absolute Neutrophils 12.59 k/cumm (1.2-6.7) H 05/17/18 01:15 Absolute Lymphocytes 1.47 k/cumm (1.2-3.4) 05/17/18 01:15 Absolute Monocytes 1.17 k/cumm (0.11-0.7) H 05/17/18 01:15 Absolute Eosinophils 0.03 k/cumm (0.0-0.7) 05/17/18 01:15 Absolute Basophils 0.02 k/cumm (0.0-0.2) 05/17/18 01:15 Metamyelocytes Cancelled 05/16/18 22:23 Myelocytes Cancelled 05/16/18 22:23 Promyelocytes Cancelled 05/16/18 22:23 Nucleated RBCs Cancelled 05/16/18 22:23 Differential Comment Cancelled 05/16/18 22:23 Other Cell Type Cancelled 05/16/18 22:23 RBC Morphology Cancelled 05/16/18 22:23 Polychromasia Cancelled 05/16/18 22:23 Hypochromasia Cancelled 05/16/18 22:23 Poikilocytosis Cancelled 05/16/18 22:23 Basophilic Stippling Cancelled 05/16/18 22:23 Anisocytosis Cancelled 05/16/18 22:23 Microcytosis Cancelled 05/16/18 22:23 Macrocytosis Cancelled 05/16/18 22:23 Spherocytes Cancelled 05/16/18 22:23 Target Cells Cancelled 05/16/18 22:23 Tear Drop Cells Cancelled 05/16/18 22:23 Ovalocytes Cancelled 05/16/18 22:23 Stomatocytes Cancelled 05/16/18 22:23 [place] Bodies Cancelled 05/16/18 22:23 [place] Cells Cancelled 05/16/18 22:23 Acanthocytes (Spur) Cancelled 05/16/18 22:23 Schistocytes Cancelled 05/16/18 22:23 Sodium 138 mmol/L (136-145) 05/17/18 06:35 Potassium 4.0 mmol/L (3.5-5.1) 05/17/18 06:35 Chloride 102 mmol/L (98-107) 05/17/18 06:35 Carbon Dioxide 26.2 mmol/L (21.0-32.0) 05/17/18 06:35 Anion Gap 9.8 mmol/L (3-11) 05/17/18 06:35 BUN 30 mg/dL (7-18) H 05/17/18 06:35 Creatinine 1.18 mg/dL (0.70-1.30) 05/17/18 06:35 Estimated GFR/1.73 m2 >= 60.00 (mL/min/1.73m2) 05/17/18 06:35 Glucose 111 mg/dL (70-100) H 05/17/18 06:35 Calcium 8.6 mg/dL (8.5-10.1) 05/17/18 06:35 Total Bilirubin 0.7 mg/dL (0.2-1.0) 05/16/18 20:05 AST 31 U/L (15-37) 05/16/18 20:05 ALT 39 U/L (12-78) 05/16/18 20:05 Alkaline Phosphatase 88 U/L (46-116) 05/16/18 20:05 Total Protein 7.1 g/dL (6.4-8.2) 05/16/18 20:05 Albumin 3.6 g/dL (3.4-5.0) 05/16/18 20:05
--- NOTE | 2018-05-17 09:09 | DI.VRAD_ITS ---
EXAM: XR Chest, 1 View EXAM DATE/TIME: 05/17/2018 7:52 AM CLINICAL HISTORY: 72 years old, male; Signs and symptoms; Other: Right sided chest tube placed on water seal TECHNIQUE: XR of the chest, 1 view. COMPARISON: SC XR PORTABLE CHEST AP POST LINE 05/16/2018 10:46 PM FINDINGS: Tubes, catheters and devices: Right chest tube stable. Lungs: Unremarkable. No consolidation. Pleural space: Increased size of right small pneumothorax, with apical pleural separation 2.1 cm. Heart/Mediastinum: Unremarkable. No cardiomegaly. Bones/joints: Unremarkable. IMPRESSION: Increased size of right small pneumothorax, with apical pleural separation 2.1 cm. Dictated and Authenticated by: Leslie Simeon MD. Ordering:JAGDEEP Schwartz MD
--- NOTE | 2018-05-17 11:02 | PDOC.CMIN ---
Care Management Initial Assess REASON FOR HOSPITALIZATION:: Pneumothorax, Five Right Rib Fractures PAST MEDICAL HISTORY/PAST SURGICAL HISTORY:: Cortical cataract of right eye, angina, Nuclear sclerotic cataract of right eye, cataract surgery, Colonoscopy-IV Sedation, Coronary Stent, Repair of umbilical hernia ETOH, Erectile dysfunction, CAD, Rosacea, Allergic rhinitis, Adenomatous colon polyp, Hypertension, Hyperlipidemiacardiac stent x 4 each time (8) 07/1995, 10/2000, colonoscopy, ventral hernia repair, excision L helix BCC, frozen, complex closure 02/22. PREVIOUS FUNCTIONAL STATUS/SOCIAL/FAMILY SUPPORTS:: Taco resides in [place] with his , Johnna. The couple has three adult children. 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 Taco shares that he works during the week at [employer], running the [employer] where the kids are. He shares a love for skiing and that he and his enjoy being [place] [employer], [place] and began walking down the hill when he fell-resulting in Pnemothorax and five rib fractures. He is independent with ADLs in the community. CURRENT FUNCTIONAL STATUS:: Taco was sitting up in his chair, utillizing his IS when CM entered. He was pleasant in interaction and forthcoming with information. He reported some discomfort with chest tube when using IS but clarified it as discomfort; not pain. ADVANCE DIRECTIVES:: On file at [facility]: [id number] as Agent, Denilson as Alternate, Jazmin and Norbert as others. Has patient been provided with information about the portal?: Yes Did the patient sign up for the portal?: No CODE STATUS:: Full Code INSURANCE COVERAGE / FINANCIAL ISSUES:: BC/BS CURRENT HOME/COMMUNITY SERVICES/EQUIPMENT:: No current services or equipment. PRIMARY CARE PHYSICIAN:: Vandana Valladares POTENTIAL DISCHARGE NEEDS:: Follow up appointment with PCP. PATIENT/FAMILY EDUCATION NEEDS:: Review discharge instructions, discuss Ask Me Three. ANTICIPATED BARRIERS TO DISCHARGE:: None identified. TRANSPORTATION:: Via private vehicle with his , Johnna. PLAN:: Taco will continue to be closely monitored in the ICU. He continues to use his IS, and has a chest tube placed. He will likely return home with no additional services when ready per MD. He will transport via private vehicle with his .
--- NOTE | 2018-05-17 11:50 | INITIAL_ITS ---
Care Management Initial Assess REASON FOR HOSPITALIZATION:: Pneumothorax, Five Right Rib Fractures PAST MEDICAL HISTORY/PAST SURGICAL HISTORY:: Cortical cataract of right eye, angina, Nuclear sclerotic cataract of right eye, cataract surgery, Colonoscopy- IV Sedation, Coronary Stent, Repair of umbilical hernia ETOH, Erectile dysfunction, CAD, Rosacea, Allergic rhinitis, Adenomatous colon polyp, Hypertension, Hyperlipidemiacardiac stent x 4 each time (8) 07/1995, 10/2000, colonoscopy, ventral hernia repair, excision L helix BCC, frozen, complex closure 02/22. PREVIOUS FUNCTIONAL STATUS/SOCIAL/FAMILY SUPPORTS:: Taco resides in [place] with his , Johnna. The couple has three adult children. 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 Taco shares that he works during the week at [email or web address], running the [employer] where the kids are. He shares a love for skiing and that he and his enjoy being up at the [place], he was [place] and began walking down the hill when he fell-resulting in Pnemothorax and five rib fractures. He is independent with ADLs in the community. CURRENT FUNCTIONAL STATUS:: Taco was sitting up in his chair, utillizing his IS when CM entered. He was pleasant in interaction and forthcoming with information. He reported some discomfort with chest tube when using IS but clarified it as discomfort; not pain. ADVANCE DIRECTIVES:: On file at [facility]: [id number] as Agent, Denilson as Alternate, Jazmin and Norbert as others. Has patient been provided with information about the portal?: Yes Did the patient sign up for the portal?: No CODE STATUS:: Full Code INSURANCE COVERAGE / FINANCIAL ISSUES:: BC/BS CURRENT HOME/COMMUNITY SERVICES/EQUIPMENT:: No current services or equipment. PRIMARY CARE PHYSICIAN:: Vandana Valladares POTENTIAL DISCHARGE NEEDS:: Follow up appointment with PCP. PATIENT/FAMILY EDUCATION NEEDS:: Review discharge instructions, discuss Ask Me Three. ANTICIPATED BARRIERS TO DISCHARGE:: None identified. TRANSPORTATION:: Via private vehicle with his , Johnna. PLAN:: Taco will continue to be closely monitored in the ICU. He continues to use his IS, and has a chest tube placed. He will likely return home with no additional services when ready per MD. He will transport via private vehicle with his .
--- NOTE | 2018-05-17 12:46 | W.PM.PROGNOT ---
Date of Service Date of service: 05/17/18 Time of Service: 12:46 Assessment and Plan (1) Traumatic hemopneumothorax, initial encounter: Start date: 05/17/18 Start time: 12:48 Current visit: Yes Status: Acute poss water seal again will wait for next CXR cont IS Subjective Patient reports: no new complaints Interval history since last seen: called back due to nurse recording a temp of 99.6 and pt WBC 15,000 CXR also due to be done Exam Resp Effort & Inspection: normal respiratory effort Auscultation: clear to auscultation bilaterally Percussion: percussion normal Other: pt using IS on suction doing well bedside with home med list Objective Objective Clinical Data: Abnormal lab results 05/16/18 05/16/18 05/17/18 Range/Units 20:05 20:05 01:15 WBC (4.4-10.8) k/cumm RBC 4.37 L (4.50-6.00) m/cumm Hgb 13.3 L (13.5-17.5) g/dL Absolute Neutrophils (1.2-6.7) k/cumm Absolute Monocytes 0.89 H (0.11-0.7) k/cumm BUN 27 H 29 H (7-18) mg/dL Glucose 119 H (70-100) mg/dL Calcium 8.1 L (8.5-10.1) mg/dL 05/17/18 05/17/18 Range/Units 01:15 06:35 WBC 15.34 H D (4.4-10.8) k/cumm RBC 4.46 L (4.50-6.00) m/cumm Hgb (13.5-17.5) g/dL Absolute Neutrophils 12.59 H (1.2-6.7) k/cumm Absolute Monocytes 1.17 H (0.11-0.7) k/cumm BUN 30 H (7-18) mg/dL Glucose 111 H (70-100) mg/dL Calcium (8.5-10.1) mg/dL Vital Signs Temperature 37.8 C H 05/17/18 12:42 Temperature Source Temporal Artery Scan 05/17/18 12:42 Pulse 76 05/17/18 12:42 Pulse Rhythm Regular 05/17/18 09:00 Pulse 72 05/17/18 00:40 Respiratory Rate 16 05/17/18 12:42 Respiratory Effort 05/17/18 09:00 Respiratory Depth Normal 05/17/18 09:00 Respiratory Pattern Normal 05/17/18 09:00 Blood Pressure 132/75 05/17/18 12:42 Blood Pressure Mean 81 05/17/18 09:31 Blood Pressure Position Supine 05/17/18 00:56 Pulse Oximetry 94 L 05/17/18 12:42 Oxygen Delivery Method Room Air 05/17/18 12:42 Oxygen Flow Rate 0 05/17/18 12:42 Pain Level 8 05/17/18 04:40 Comment 05/17/18 04:40 Intake & Output 05/16/18 05/17/18 05/17/18 23:59 11:59 23:59 Intake Total 100 / 100 770 / 770 Output Total 775 / 775 Balance 100 / 100 -5 / -5 Weight 107.048 kg 108.3 kg Intake: IV 100 / 100 200 / 200 Oral 570 / 570 Output: Urine 775 / 775 Other: Urine Color Light Dorcas Urine Appearance Clear Urine Odor None Voiding Methods Urinal Laboratory Results WBC 15.34 k/cumm (4.4-10.8) H D 05/17/18 01:15 RBC 4.46 m/cumm (4.50-6.00) L 05/17/18 01:15 Hgb 13.6 g/dL (13.5-17.5) 05/17/18 01:15 Hct 40.7 % (40.0-50.0) 05/17/18 01:15 MCV 91.3 fL (80-95) 05/17/18 01:15 MCH 30.5 pg (27.0-33.0) 05/17/18 01:15 MCHC 33.4 g/dL (32.0-36.0) 05/17/18 01:15 RDW 12.8 % (11.8-14.1) 05/17/18 01:15 Plt Count 219 x1000/uL (130-400) 05/17/18 01:15 MPV 9.6 fL (8.0-11.0) 05/17/18 01:15 Immature Gran % 0.4 05/17/18 01:15 Neutrophils % 82.1 05/17/18 01:15 Band Neutrophils % Cancelled 05/16/18 22:23 Lymphocytes % 9.6 05/17/18 01:15 Atypical Lymphs % Cancelled 05/16/18 22:23 Monocytes % 7.6 05/17/18 01:15 Eosinophils % 0.2 05/17/18 01:15 Basophils % 0.1 05/17/18 01:15 Absolute Neutrophils 12.59 k/cumm (1.2-6.7) H 05/17/18 01:15 Absolute Lymphocytes 1.47 k/cumm (1.2-3.4) 05/17/18 01:15 Absolute Monocytes 1.17 k/cumm (0.11-0.7) H 05/17/18 01:15 Absolute Eosinophils 0.03 k/cumm (0.0-0.7) 05/17/18 01:15 Absolute Basophils 0.02 k/cumm (0.0-0.2) 05/17/18 01:15 Metamyelocytes Cancelled 05/16/18 22:23 Myelocytes Cancelled 05/16/18 22:23 Promyelocytes Cancelled 05/16/18 22:23 Nucleated RBCs Cancelled 05/16/18 22:23 Differential Comment Cancelled 05/16/18 22:23 Other Cell Type Cancelled 05/16/18 22:23 RBC Morphology Cancelled 05/16/18 22:23 Polychromasia Cancelled 05/16/18 22:23 Hypochromasia Cancelled 05/16/18 22:23 Poikilocytosis Cancelled 05/16/18 22:23 Basophilic Stippling Cancelled 05/16/18 22:23 Anisocytosis Cancelled 05/16/18 22:23 Microcytosis Cancelled 05/16/18 22:23 Macrocytosis Cancelled 05/16/18 22:23 Spherocytes Cancelled 05/16/18 22:23 Target Cells Cancelled 05/16/18 22:23 Tear Drop Cells Cancelled 05/16/18 22:23 Ovalocytes Cancelled 05/16/18 22:23 Stomatocytes Cancelled 05/16/18 22:23 [place] Bodies Cancelled 05/16/18 22:23 [place] Cells Cancelled 05/16/18 22:23 Acanthocytes (Spur) Cancelled 05/16/18 22:23 Schistocytes Cancelled 05/16/18 22:23 Sodium 138 mmol/L (136-145) 05/17/18 06:35 Potassium 4.0 mmol/L (3.5-5.1) 05/17/18 06:35 Chloride 102 mmol/L (98-107) 05/17/18 06:35 Carbon Dioxide 26.2 mmol/L (21.0-32.0) 05/17/18 06:35 Anion Gap 9.8 mmol/L (3-11) 05/17/18 06:35 BUN 30 mg/dL (7-18) H 05/17/18 06:35 Creatinine 1.18 mg/dL (0.70-1.30) 05/17/18 06:35 Estimated GFR/1.73 m2 >= 60.00 (mL/min/1.73m2) 05/17/18 06:35 Glucose 111 mg/dL (70-100) H 05/17/18 06:35 Calcium 8.6 mg/dL (8.5-10.1) 05/17/18 06:35 Total Bilirubin 0.7 mg/dL (0.2-1.0) 05/16/18 20:05 AST 31 U/L (15-37) 05/16/18 20:05 ALT 39 U/L (12-78) 05/16/18 20:05 Alkaline Phosphatase 88 U/L (46-116) 05/16/18 20:05 Total Protein 7.1 g/dL (6.4-8.2) 05/16/18 20:05 Albumin 3.6 g/dL (3.4-5.0) 05/16/18 20:05
--- NOTE | 2018-05-17 13:00 | DI.RAD_ITS ---
SYMPTOM/DIAGNOSIS: CHEST TUBE FOR PNEUMOTHORAX CHEST X-RAY: PORTABLE AP VIEW FROM 05/17/18 AT 1:04 P.M. Comparison with examination from earlier in the day. There is again seen a right chest tube. There has been slight interval decrease in size of the small right pneumothorax. It now measures approximately 1.2 cm from the superior aspect of the right hemithorax. The lungs appear clear. Heart size and pulmonary vasculature are within normal limits IMPRESSION: Slight interval decrease in size of the small right pneumothorax.
--- NOTE | 2018-05-17 13:23 | DI.VRAD_ITS ---
EXAM: XR Chest, 1 View EXAM DATE/TIME: 05/17/2018 10:54 AM CLINICAL HISTORY: 72 years old, male; Device placement; Chest tube TECHNIQUE: XR of the chest, 1 view. COMPARISON: SC XR PORTABLE CHEST AP POST LINE 05/17/2018 7:57 AM FINDINGS: Tubes, catheters and devices: Right-sided chest tube noted. Lungs: Unremarkable. No consolidation. Pleural space: Slight decrease in right apical pneumothorax with 1.2 cm pleural separation. Heart/Mediastinum: Unremarkable. No cardiomegaly. Bones/joints: Unremarkable. IMPRESSION: Slight decrease in right apical pneumothorax with 1.2 cm pleural separation. Dictated and Authenticated by: Leslie Simeon MD. Ordering:JAGDEEP Schwartz MD
[2018-05-17] MEDS: Atorvastatin 40 MG TAB PO (20:08)
[2018-05-17] MEDS: Aspirin 81 MG CHEW PO (20:08)
[2018-05-17] MEDS: Hydrochlorothiazide 25 MG TAB PO (20:09)
[2018-05-17] MEDS: Ketorolac 30 MG/ML VIAL IVP (20:33)
[2018-05-18] VITALS (17 sets, daily range): BP systolic 137–159; BP diastolic 56–79; PULSE 66–81; RESP 16–21; TEMP 36.4–37.3; O2SAT 92–97
[2018-05-18] MEDS: Ketorolac 30 MG/ML VIAL IVP (04:05)
[2018-05-18] MEDS: ACETAMINOPHEN 1,000 MG/100 ML BTL 400 MG IVPB ×2 (04:26→08:39)
[2018-05-18] MEDS: Normal Saline Flush 10 ML SYR IVP (06:23)
--- NOTE | 2018-05-18 06:54 | PGE_ITS ---
Date of Service Date of service: 05/18/18 Time of Service: 06:50 Assessment and Plan (1) Traumatic hemopneumothorax, initial encounter: Start date: 05/18/18 Start time: 06:52 Current visit: Yes Status: Acute chest tube placed to water seal if cxr ok will dc chest tube (2) Fracture of five ribs of right side: Start date: 05/18/18 Start time: 06:52 Current visit: Yes Status: Acute cont pain meds will ask anesthesia if additional block will be helpful (3) Fall from slipping on ice: Start date: 05/18/18 Start time: 06:52 Current visit: Yes Status: Acute etiology Subjective Patient reports: no new complaints and pain is less Interval history since last seen: block maybe wearing off is having tenderness on the right flank where the rib fractures are Exam Const General: cooperative Orientation: alert, awake and oriented x3 Chest Chest: normal inspection of the chest Other: chest tube in place Resp Effort & Inspection: normal respiratory effort Auscultation: clear to auscultation bilaterally Percussion: percussion normal Other: pleuravac placed to water seal Objective Objective Clinical Data: Abnormal lab results 05/17/18 Range/Units 06:35 BUN 30 H (7-18) mg/dL Glucose 111 H (70-100) mg/dL Vital Signs Temperature 37.2 C 05/18/18 05:05 Temperature Source Temporal Artery Scan 05/18/18 04:30 Pulse 81 05/18/18 05:05 Pulse Rhythm Regular 05/18/18 00:05 Pulse 72 05/17/18 00:40 Respiratory Rate 21 05/18/18 05:05 Respiratory Effort 05/18/18 00:05 Respiratory Depth Normal 05/18/18 00:05 Respiratory Pattern Normal 05/18/18 00:05 Blood Pressure 157/79 H 05/18/18 04:30 Blood Pressure Mean 91 05/17/18 20:01 Blood Pressure Position Supine 05/17/18 00:56 Pulse Oximetry 95 05/18/18 05:05 Oxygen Delivery Method Room Air 05/18/18 04:30 Oxygen Flow Rate 0 05/18/18 04:30 Pain Level 2 05/18/18 05:05 Comment 05/18/18 04:30 Intake & Output 02/10/19 02/10/19 02/11/19 11:59 23:59 11:59 Intake Total 770 / 2638 1868 / 2638 100 / 100 Output Total 775 / 2750 1974 925 / 925 Balance -5 / -112 -107 / -112 -825 / -825 Weight 108.3 kg Intake: IV 200 / 400 200 / 400 100 / 100 Oral 570 / 2238 1668 / 2238 Output: Chest Tube Drainage 0 / 0 0 / 0 Urine 775 / 2750 1974 925 / 925 Other: Urine Color Light Dorcas Yellow Yellow Urine Appearance Clear Clear Clear Urine Odor None None None Voiding Methods Urinal Urinal Urinal Laboratory Results WBC 15.34 k/cumm (4.4-10.8) H D 05/17/18 01:15 RBC 4.46 m/cumm (4.50-6.00) L 05/17/18 01:15 Hgb 13.6 g/dL (13.5-17.5) 05/17/18 01:15 Hct 40.7 % (40.0-50.0) 05/17/18 01:15 MCV 91.3 fL (80-95) 05/17/18 01:15 MCH 30.5 pg (27.0-33.0) 05/17/18 01:15 MCHC 33.4 g/dL (32.0-36.0) 05/17/18 01:15 RDW 12.8 % (11.8-14.1) 05/17/18 01:15 Plt Count 219 x1000/uL (130-400) 05/17/18 01:15 MPV 9.6 fL (8.0-11.0) 05/17/18 01:15 Immature Gran % 0.4 05/17/18 01:15 Neutrophils % 82.1 05/17/18 01:15 Band Neutrophils % Cancelled 05/16/18 22:23 Lymphocytes % 9.6 05/17/18 01:15 Atypical Lymphs % Cancelled 05/16/18 22:23 Monocytes % 7.6 05/17/18 01:15 Eosinophils % 0.2 05/17/18 01:15 Basophils % 0.1 05/17/18 01:15 Absolute Neutrophils 12.59 k/cumm (1.2-6.7) H 05/17/18 01:15 Absolute Lymphocytes 1.47 k/cumm (1.2-3.4) 05/17/18 01:15 Absolute Monocytes 1.17 k/cumm (0.11-0.7) H 05/17/18 01:15 Absolute Eosinophils 0.03 k/cumm (0.0-0.7) 05/17/18 01:15 Absolute Basophils 0.02 k/cumm (0.0-0.2) 05/17/18 01:15 Metamyelocytes Cancelled 05/16/18 22:23 Myelocytes Cancelled 05/16/18 22:23 Promyelocytes Cancelled 05/16/18 22:23 Nucleated RBCs Cancelled 05/16/18 22:23 Differential Comment Cancelled 05/16/18 22:23 Other Cell Type Cancelled 05/16/18 22:23 RBC Morphology Cancelled 05/16/18 22:23 Polychromasia Cancelled 05/16/18 22:23 Hypochromasia Cancelled 05/16/18 22:23 Poikilocytosis Cancelled 05/16/18 22:23 Basophilic Stippling Cancelled 05/16/18 22:23 Anisocytosis Cancelled 05/16/18 22:23 Microcytosis Cancelled 05/16/18 22:23 Macrocytosis Cancelled 05/16/18 22:23 Spherocytes Cancelled 05/16/18 22:23 Target Cells Cancelled 05/16/18 22:23 Tear Drop Cells Cancelled 05/16/18 22:23 Ovalocytes Cancelled 05/16/18 22:23 Stomatocytes Cancelled 05/16/18 22:23 [place] Bodies Cancelled 05/16/18 22:23 [place] Cells Cancelled 05/16/18 22:23 Acanthocytes (Spur) Cancelled 05/16/18 22:23 Schistocytes Cancelled 05/16/18 22:23 Sodium 138 mmol/L (136-145) 05/17/18 06:35 Potassium 4.0 mmol/L (3.5-5.1) 05/17/18 06:35 Chloride 102 mmol/L (98-107) 05/17/18 06:35 Carbon Dioxide 26.2 mmol/L (21.0-32.0) 05/17/18 06:35 Anion Gap 9.8 mmol/L (3-11) 05/17/18 06:35 BUN 30 mg/dL (7-18) H 05/17/18 06:35 Creatinine 1.18 mg/dL (0.70-1.30) 05/17/18 06:35 Estimated GFR/1.73 m2 >= 60.00 (mL/min/1.73m2) 05/17/18 06:35 Glucose 111 mg/dL (70-100) H 05/17/18 06:35 Calcium 8.6 mg/dL (8.5-10.1) 05/17/18 06:35 Total Bilirubin 0.7 mg/dL (0.2-1.0) 05/16/18 20:05 AST 31 U/L (15-37) 05/16/18 20:05 ALT 39 U/L (12-78) 05/16/18 20:05 Alkaline Phosphatase 88 U/L (46-116) 05/16/18 20:05 Total Protein 7.1 g/dL (6.4-8.2) 05/16/18 20:05 Albumin 3.6 g/dL (3.4-5.0) 05/16/18 20:05
[2018-05-18] MEDS: Losartan 50 MG TAB 100 MG PO (08:39)
--- NOTE | 2018-05-18 09:57 | DI.RAD_ITS ---
SYMPTOM/DIAGNOSIS: F/U PTX , CHEST TUBE PLACED TO WATER SEAL CHEST X-RAY, 05/18/18 10:06 A.M. Comparison is 05/17/18. There is a right sided chest tube in place. There is a tiny right apical pneumothorax which persists. It appears smaller compared to 05/17/18. Heart size and pulmonary vasculature are within normal limits. Mild atelectatic changes are seen in the right lungs. No focal consolidating infiltrates are seen. The left lung appears clear and well expanded. Multiple right rib fractures are again noted. IMPRESSION: Persistent very tiny right apical pneumothorax.
--- NOTE | 2018-05-18 12:35 | W.PM.PROGNOT ---
Date of Service Date of service: 05/18/18 Time of Service: 12:35 Assessment and Plan (1) Fall from slipping on ice: Start date: 05/16/18 Start time: 22:51 Current visit: Yes Status: Acute sustained 5 rib fractures Qualifiers: Encounter type: subsequent encounter Qualified Code(s): W00.9XXD - Unspecified fall due to ice and snow, subsequent encounter (2) Fracture of five ribs of right side: Start date: 05/16/18 Start time: 22:51 Current visit: Yes Status: Acute supportive rib block done by anesthesia Qualifiers: Encounter type: subsequent encounter (3) Traumatic hemopneumothorax, initial encounter: Start date: 05/16/18 Start time: 22:52 Current visit: Yes Status: Acute right chest tube was removed and vasaline gauze, 4x4 gauze and tegaderm pressure dressing. Patient tolerated the chest tube removal. Sp02 was 96% on RA. Will observe the patient for 2-3 hours observing for any respiratory distress to include dyspnea or decrease in 02 saturation. If these symptoms occur will order chest X-ray. If patient does well D/C home later today. Subjective Interval history since last seen: Feeling well. Has been ambulating and sitting in the recliner chair throughout the day. Exam Const General: cooperative, healthy appearing and comfortable Orientation: alert and oriented x3 Resp Effort & Inspection: normal respiratory effort, no audible wheezes and no cough Objective Objective Clinical Data: Vital Signs Temperature 36.6 C 05/18/18 08:00 Temperature Source Temporal Artery Scan 05/18/18 08:00 Pulse 69 05/18/18 08:00 Pulse Rhythm Regular 05/18/18 08:00 Pulse 72 05/17/18 00:40 Respiratory Rate 16 05/18/18 08:00 Respiratory Effort 05/18/18 00:05 Respiratory Depth Normal 05/18/18 00:05 Respiratory Pattern Normal 05/18/18 00:05 Blood Pressure 137/56 L 05/18/18 08:00 Blood Pressure Mean 96 05/18/18 08:00 Blood Pressure Position Supine 05/17/18 00:56 Pulse Oximetry 95 05/18/18 11:30 Oxygen Delivery Method Room Air 05/18/18 08:00 Oxygen Flow Rate 0 05/18/18 08:00 Pain Level 0 05/18/18 08:00 Comment 05/18/18 08:00 Intake & Output 05/17/18 05/18/18 05/18/18 23:59 11:59 23:59 Intake Total 1868 / 2638 680 / 680 Output Total 1974 1425 / 142 Balance -107 / -112 -745 / -745 Intake: IV 200 / 400 100 / 100 Oral 1668 / 2238 580 / 580 Output: Chest Tube Drainage 0 / 0 0 / 0 Urine 1974 1425 / 1425 Other: Urine Color Yellow Light Dorcas Urine Appearance Clear Clear Urine Odor None Normal Voiding Methods Urinal Bedside Commode Laboratory Results WBC 15.34 k/cumm (4.4-10.8) H D 05/17/18 01:15 RBC 4.46 m/cumm (4.50-6.00) L 05/17/18 01:15 Hgb 13.6 g/dL (13.5-17.5) 05/17/18 01:15 Hct 40.7 % (40.0-50.0) 05/17/18 01:15 MCV 91.3 fL (80-95) 05/17/18 01:15 MCH 30.5 pg (27.0-33.0) 05/17/18 01:15 MCHC 33.4 g/dL (32.0-36.0) 05/17/18 01:15 RDW 12.8 % (11.8-14.1) 05/17/18 01:15 Plt Count 219 x1000/uL (130-400) 05/17/18 01:15 MPV 9.6 fL (8.0-11.0) 05/17/18 01:15 Immature Gran % 0.4 05/17/18 01:15 Neutrophils % 82.1 05/17/18 01:15 Band Neutrophils % Cancelled 05/16/18 22:23 Lymphocytes % 9.6 05/17/18 01:15 Atypical Lymphs % Cancelled 05/16/18 22:23 Monocytes % 7.6 05/17/18 01:15 Eosinophils % 0.2 05/17/18 01:15 Basophils % 0.1 05/17/18 01:15 Absolute Neutrophils 12.59 k/cumm (1.2-6.7) H 05/17/18 01:15 Absolute Lymphocytes 1.47 k/cumm (1.2-3.4) 05/17/18 01:15 Absolute Monocytes 1.17 k/cumm (0.11-0.7) H 05/17/18 01:15 Absolute Eosinophils 0.03 k/cumm (0.0-0.7) 05/17/18 01:15 Absolute Basophils 0.02 k/cumm (0.0-0.2) 05/17/18 01:15 Metamyelocytes Cancelled 05/16/18 22:23 Myelocytes Cancelled 05/16/18 22:23 Promyelocytes Cancelled 05/16/18 22:23 Nucleated RBCs Cancelled 05/16/18 22:23 Differential Comment Cancelled 05/16/18 22:23 Other Cell Type Cancelled 05/16/18 22:23 RBC Morphology Cancelled 05/16/18 22:23 Polychromasia Cancelled 05/16/18 22:23 Hypochromasia Cancelled 05/16/18 22:23 Poikilocytosis Cancelled 05/16/18 22:23 Basophilic Stippling Cancelled 05/16/18 22:23 Anisocytosis Cancelled 05/16/18 22:23 Microcytosis Cancelled 05/16/18 22:23 Macrocytosis Cancelled 05/16/18 22:23 Spherocytes Cancelled 05/16/18 22:23 Target Cells Cancelled 05/16/18 22:23 Tear Drop Cells Cancelled 05/16/18 22:23 Ovalocytes Cancelled 05/16/18 22:23 Stomatocytes Cancelled 05/16/18 22:23 [place] Bodies Cancelled 05/16/18 22:23 [place] Cells Cancelled 05/16/18 22:23 Acanthocytes (Spur) Cancelled 05/16/18 22:23 Schistocytes Cancelled 05/16/18 22:23 Sodium 138 mmol/L (136-145) 05/17/18 06:35 Potassium 4.0 mmol/L (3.5-5.1) 05/17/18 06:35 Chloride 102 mmol/L (98-107) 05/17/18 06:35 Carbon Dioxide 26.2 mmol/L (21.0-32.0) 05/17/18 06:35 Anion Gap 9.8 mmol/L (3-11) 05/17/18 06:35 BUN 30 mg/dL (7-18) H 05/17/18 06:35 Creatinine 1.18 mg/dL (0.70-1.30) 05/17/18 06:35 Estimated GFR/1.73 m2 >= 60.00 (mL/min/1.73m2) 05/17/18 06:35 Glucose 111 mg/dL (70-100) H 05/17/18 06:35 Calcium 8.6 mg/dL (8.5-10.1) 05/17/18 06:35 Total Bilirubin 0.7 mg/dL (0.2-1.0) 05/16/18 20:05 AST 31 U/L (15-37) 05/16/18 20:05 ALT 39 U/L (12-78) 05/16/18 20:05 Alkaline Phosphatase 88 U/L (46-116) 05/16/18 20:05 Total Protein 7.1 g/dL (6.4-8.2) 05/16/18 20:05 Albumin 3.6 g/dL (3.4-5.0) 05/16/18 20:05
--- NOTE | 2018-05-18 13:14 | W.PM.DS.N ---
Date of service: 05/18/18 Time of Service: 13:14 DS: Diagnosis Discharge Diagnosis (1) Fall from slipping on ice: Status: Acute (2) Fracture of five ribs of right side: Status: Acute (3) Traumatic hemopneumothorax, initial encounter: Status: Acute Discharge Plan Disposition Patient Disposition: HOME Condition: Stable Discharge Details Chief Complaint: Chest/Rib Reason For Visit: 5 RIGHT RIB FRACTURES Admit Date/Time: 05/16/18 22:20 Admit Provider: Efren Singh III Attending Provider: Efren Singh III Primary Care Provider: Vandana Valladares ED Provider: Alejandro Raines Hospital Course Hospital Course: Patient presented to the emergency room on Friday with a fall from standing on ice. Patient had acute onset of right-sided chest pain and ED worked him up finding 5 rib fractures on the right with a hemopneumothorax. I was called to evaluate the patient primary secondary survey was completed and due to what was read as a 45% pneumothorax a decision for a right-sided chest tube was made. Patient had a block by anesthesia done and followed up by a chest tube insertion. Patient had approximately 24 hours of suction with the tube being placed on waterseal and a chest x-ray confirming reinflation of the lung. Patient had the tube removed today and is set for discharge home. Home Meds and New Rx's Prescriptions: Continued atorvastatin 40 MG tablet 40 mg PO DAILY RF: 0 clopidogrel [Plavix] 75 MG tablet 75 mg PO DAILY RF: 0 aspirin [Aspir-81] 81 MG tablet,delayed release (DR/EC) 81 mg PO HS RF: 0 sildenafil [Viagra] 100 MG tablet 100 mg PO PRN PRNRF: 0 nitroglycerin [Nitrostat] 0.4 MG tablet, sublingual 0.4 mg Sublingual ONCE RF: 0 losartan 100 MG tablet 100 mg PO HS RF: 0 diltiazem HCl 240 MG capsule,extended release 24hr 240 mg PO DAILY RF: 0 hydrochlorothiazide 25 MG tablet 25 mg PO DAILY RF: 0 naproxen sodium [Aleve] 220 mg Capsule 220 mg PO RF: 0 Discharge Instructions Referrals: Efren Singh III, [OSTEOPATHIC DOCTOR] - Activity:: Activity as Tolerated Equipment/Supplies:: No Equipment Needed Diet:: As Tolerated Discharge Orders Discharge Orders: Discharge Order (Routine); Ordered 05/18/18 Ordered By: Efren Singh III DS: Data Vitals/I&O Vitals and I&O: Vital Signs Temperature 36.4 C L 05/18/18 13:08 Temperature Source Temporal Artery Scan 05/18/18 13:08 Pulse 69 05/18/18 13:08 Pulse Rhythm Regular 05/18/18 08:00 Pulse 72 05/17/18 00:40 Respiratory Rate 18 05/18/18 13:08 Respiratory Effort 05/18/18 00:05 Respiratory Depth Normal 05/18/18 00:05 Respiratory Pattern Normal 05/18/18 00:05 Blood Pressure 144/66 H 05/18/18 13:08 Blood Pressure Mean 96 05/18/18 08:00 Blood Pressure Position Supine 05/17/18 00:56 Pulse Oximetry 95 05/18/18 13:08 Oxygen Delivery Method Room Air 05/18/18 13:08 Oxygen Flow Rate 0 05/18/18 13:08 Pain Level 0 05/18/18 13:08 Comment 05/18/18 08:00 Intake & Output 05/17/18 05/18/18 05/18/18 23:59 11:59 23:59 Intake Total 1868 / 2638 680 / 980 300 / 980 Output Total 1974 1425 / 1425 Balance -107 / -112 -745 / -445 300 / -445 Intake: IV 200 / 400 100 / 100 Oral 1668 / 2238 580 / 880 300 / 880 Output: Chest Tube Drainage 0 / 0 0 / 0 Urine 19740 1425 / 1425 Other: Urine Color Yellow Light Dorcas Urine Appearance Clear Clear Urine Odor None Normal Voiding Methods Urinal Bedside Commode [facility] Medical History Cortical cataract of right eye (Resolved) Nuclear sclerotic cataract of right eye (Resolved) Surgical History S/P cataract surgery (Resolved 12/01/17) Colonoscopy - IV Sedation (11/13/15) Coronary Stent Repair of umbilical hernia Social History Smoking and Tabacco status: Never
--- NOTE | 2018-05-18 14:17 | DSE_ITS ---
Date of service: 05/18/18 Time of Service: 14:16 DS: Diagnosis Discharge Diagnosis (1) Fall from slipping on ice: Status: Acute (2) Fracture of five ribs of right side: Status: Acute (3) Traumatic hemopneumothorax, initial encounter: Status: Acute (4) S/P chest tube placement: Status: Acute Discharge Plan Disposition Patient Disposition: HOME Condition: Stable Discharge Details Chief Complaint: Chest/Rib Reason For Visit: 5 RIGHT RIB FRACTURES Admit Date/Time: 05/16/18 22:20 Admit Provider: Efren Singh III Attending Provider: Efren Singh III Primary Care Provider: Vandana Valladares ED Provider: Alejandro Raines Hospital Course Hospital Course: Patient presented to the emergency room on Friday with a fall from standing on ice. Patient had acute onset of right-sided chest pain and ED worked him up finding 5 rib fractures on the right with a hemopneumothorax. I was called to evaluate the patient primary secondary survey was completed and due to what was read as a 45% pneumothorax a decision for a right-sided chest tube was made. Patient had a block by anesthesia done and followed up by a chest tube insertion. Patient had approximately 24 hours of suction with the tube being p laced on waterseal and a chest x-ray confirming reinflation of the lung. Patient had the tube removed today and is set for discharge home. Home Meds and New Rx's Prescriptions: Continued atorvastatin 40 MG tablet 40 mg PO DAILY RF: 0 clopidogrel [Plavix] 75 MG tablet 75 mg PO DAILY RF: 0 aspirin [Aspir-81] 81 MG tablet,delayed release (DR/EC) 81 mg PO HS RF: 0 sildenafil [Viagra] 100 MG tablet 100 mg PO PRN PRNRF: 0 nitroglycerin [Nitrostat] 0.4 MG tablet, sublingual 0.4 mg Sublingual ONCE RF: 0 losartan 100 MG tablet 100 mg PO HS RF: 0 diltiazem HCl 240 MG capsule,extended release 24hr 240 mg PO DAILY RF: 0 hydrochlorothiazide 25 MG tablet 25 mg PO DAILY RF: 0 naproxen sodium [Aleve] 220 mg Capsule 220 mg PO RF: 0 Discharge Instructions Referrals: Efren Singh III, DO [OSTEOPATHIC DOCTOR] - Activity:: Activity as Tolerated Equipment/Supplies:: No Equipment Needed Diet:: As Tolerated Discharge Orders Discharge Orders: Discharge Order (Routine); Ordered 05/18/18 Ordered By: Efren Singh III DS: Data Vitals/I&O Vitals and I&O: Vital Signs Temperature 97.5 F L 05/18/18 13:08 Temperature Source Temporal Artery Scan 05/18/18 13:08 Pulse 69 05/18/18 13:08 Pulse Rhythm Regular 05/18/18 08:00 Pulse 72 05/17/18 00:40 Respiratory Rate 18 05/18/18 13:08 Respiratory Effort 05/18/18 00:05 Respiratory Depth Normal 05/18/18 00:05 Respiratory Pattern Normal 05/18/18 00:05 Blood Pressure 144/66 H 05/18/18 13:08 Blood Pressure Mean 96 05/18/18 08:00 Blood Pressure Position Supine 05/17/18 00:56 Pulse Oximetry 95 05/18/18 13:08 Oxygen Delivery Method Room Air 05/18/18 13:08 Oxygen Flow Rate 0 05/18/18 13:08 Pain Level 0 05/18/18 13:08 Comment 05/18/18 08:00 Intake & Output 05/17/18 05/18/18 05/18/18 23:59 11:59 23:59 Intake Total 1868 / 2638 680 / 980 300 / 980 Output Total 1974 1425 / 1425 Balance -107 / -112 -745 / -445 300 / -445 Intake: IV 200 / 400 100 / 100 Oral 1668 / 2238 580 / 880 300 / 880 Output: Chest Tube Drainage 0 / 0 0 / 0 Urine 19740 1425 / 1425 Other: Urine Color Yellow Light Dorcas Urine Appearance Clear Clear Urine Odor None Normal Voiding Methods Urinal Bedside Com[facility] Medical History Subcutaneous emphysema due to trauma (Acute) Traumatic hemopneumothorax, initial encounter (Acute) Fracture of five ribs of right side (Acute) Fall from slipping on ice (Acute) Cortical cataract of right eye (Resolved) Nuclear sclerotic cataract of right eye (Resolved) Surgical History S/P chest tube placement (Acute ~05/16/18) S/P cataract surgery (Resolved 12/01/17) Colonoscopy - IV Sedation (11/13/15) Coronary Stent Repair of umbilical hernia Social History Smoking and Tabacco status: Never
--- NOTE | 2018-05-18 14:29 | CHAPLAIN ---
I introduced myself to Taco and his , explained my role and offered support. Derick said he is hopefully being discharged soon. He said his sister had requested [facility] for Derick [place].
[2018-05-18] MEDS: Bupivacaine 0.25% Pres-Free 30 ML VIAL (14:48)
[2018-05-18] MEDS: Bupivacaine LIPOSOME/PF 133 MG/10 ML VIAL IJ (14:48)
--- NOTE | 2018-05-18 15:07 | PDOC.CMPRO ---
- If Service Date Differs Date of service: 05/18/18 Time of Service: 15:07 Care Management Progress Note S/O: CM met with patient in the room him and his Johnna the couple live in [place], [place]. 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 He has children that are grown and live out of the area. He describes his support system as his spouse Johnna. Taco is planning to be discharged today he states that his pain is well controlled. He feels he is ready for discharged. CM provided education r/t follow up plan, self management and pain control. Taco has a plan to manage his pain and appointment to follow up with . No other services needed at time of discharge. Patient has an advance directive on file. A: Taco is a 72 year old male that fell in the parking lot at [facility] and fx 5 right ribs. He has a history of Cardiac stent and his outboard system operator is at [facility]. P: Taco will be discharged home today his spouse Johnna will transport. His son is visiting this coming weekend. Taco states he has good supports.
--- NOTE | 2018-05-18 15:35 | CMPROGNOTE_ITS ---
- If Service Date Differs Date of service: 05/18/18 Time of Service: 15:07 Care Management Progress Note S/O: CM met with patient in the room him and his Johnna the couple live in [place], [place]. 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 He has children that are grown and live out of the area. He describes his support system as his spouse Johnna. Taco is planning to be discharged today he states that his pain is well controlled. He feels he is ready for discharged. CM provided education r/t follow up plan, self management and pain control. Taco has a plan to manage his pain and appointment to follow up with . No other services needed at time of discharge. Patient has an advance directive on file. A: Taco is a 72 year old male that fell in the parking lot at [employer] and fx 5 right ribs. 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 P: Taco will be discharged home today his spouse Johnna will transport. His son is visiting this coming weekend. Taco states he has good supports.
== END 2018-05-18 16:08 | disposition home or self-care (01) | DRG 200 ==
LOC: ER 22:49 → ICU 05-17 00:58
PROVIDERS: Admitting Provider Surgery; Emergency Provider Student in an Organized Health Care Education/Training Program; PCP Family Medicine; Visit Provider Surgery
DX: S27.2XXA Traumatic hemopneumothorax, initial encounter (principal); S22.41XA Multiple fractures of ribs, right side, initial encounter for closed fracture; T79.7XXA Traumatic subcutaneous emphysema, initial encounter; W00.0XXA Fall on same level due to ice and snow, initial encounter; G89.11 Acute pain due to trauma
CPT/HCPCS: 36415; 64450; 71045; 74177; 80048; 80053; 96365; 96375; 99222; 99232; 99284; NC; 71260; 85025; 99285; J0131; J1885; J2270; J2405; J3490

== ENCOUNTER 2018-06-05 16:11 | Outpatient (CLI) | payer BC, SELFPAY ==
--- NOTE | 2018-06-05 14:00 | DI.RAD_ITS ---
SYMPTOMS/DIAGNOSIS: F/U RIGHT-SIDED PNEUMOTHORAX, J93.9 PA AND LATERAL CHEST: Comparison is made with May,. The previously noted right-sided chest catheter has been removed. Right rib fractures are again seen laterally. There is a small right pleural effusion. No pneumothorax is seen. The left lung is clear. The heart size is normal. IMPRESSION: Small right pleural effusion. No residual or recurrent pneumothorax.
== END 2018-06-05 16:31 ==
PROVIDERS: PCP Family Medicine; Visit Provider Family Medicine
DX: J93.9 Pneumothorax, unspecified (principal); J90 Pleural effusion, not elsewhere classified; S22.41XD Multiple fractures of ribs, right side, subsequent encounter for fracture with routine healing
CPT/HCPCS: 71046

== ENCOUNTER 2018-06-22 18:09 | Outpatient (REF) | payer BC, SELFPAY ==
--- NOTE | 2018-06-22 16:25 | SKI_PTH ---
PATIENT: Taco Khan LOC: N U#:[id number] AGE/SX: 72/M ROOM: RE06/22/[address]: Gurpreet Tinoco DO : 1945 BED: DIS: 06/22/2018 SPEC #: [id number] RECD: 06/23/18 12:25 STATUS: SHANE REQ #: [id number] KWABENA: 06/22/18 16:[address]: Gurpreet Tinoco DEPT: Surgical Specimen RECD BY: Shala Clarke ENTERED: 06/23/18 12:25 SP TYPE: SKI OTHR DR: Vandana Valladares Tissues: 1 - SKIN BIOPSY(SHAVE/PUNCH) Procedures: SKIN LEVEL 4 Comments: [id number]
== END 2018-06-22 18:29 ==
LOC: LBN 18:09
PROVIDERS: PCP Family Medicine; Visit Provider Otolaryngology Otolaryngology/Facial Plastic Surgery
DX: C43.62 Malignant melanoma of left upper limb, including shoulder (principal)
CPT/HCPCS: 88305

== ENCOUNTER 2018-08-03 11:48 | Outpatient (REF) | payer BC, SELFPAY | END 2018-08-03 12:08 | LOC: LBN 11:48 | PROVIDERS: PCP Family Medicine; Visit Provider Otolaryngology Otolaryngology/Facial Plastic Surgery | DX: L02.212 Cutaneous abscess of back [any part, except buttock and flank] (principal) | CPT/HCPCS: 87077; 87070; 87186; 87205 ==

== ENCOUNTER 2018-12-28 10:51 | Outpatient (REF) | payer BC, SELFPAY ==
--- NOTE | 2018-12-28 09:35 | SKI_PTH ---
PATIENT: Taco Khan LOC: [facility] U#:[id number] AGE/SX: 73/M ROOM: RE12/28/[address]: Gurpreet Tinoco DO : 1945 BED: DIS: 12/28/2018 SPEC #: [id number] RECD: 12/28/18 18:07 STATUS: SHANE REQ #: [id number] KWABENA: 12/28/18 09:[address]: Gurpreet Tinoco DEPT: Surgical Specimen RECD BY: Shala Clarke ENTERED: 12/28/18 18:08 SP TYPE: DUANE PUENTE DR: Vandana Valladares Tissues: 1 - SKIN BIOPSY(SHAVE/PUNCH) 2 - SKIN BIOPSY(SHAVE/PUNCH) 3 - SKIN BIOPSY(SHAVE/PUNCH) 4 - SKIN BIOPSY(SHAVE/PUNCH) Procedures: SKIN LEVEL 4 Comments: [id number]
== END 2018-12-28 11:11 ==
LOC: LBN 10:51
PROVIDERS: PCP Family Medicine; Visit Provider Otolaryngology Otolaryngology/Facial Plastic Surgery
DX: D22.62 Melanocytic nevi of left upper limb, including shoulder (principal); D22.61 Melanocytic nevi of right upper limb, including shoulder; D22.5 Melanocytic nevi of trunk
CPT/HCPCS: 88305

== ENCOUNTER 2019-09-27 15:50 | Outpatient (REF) | payer BC, SELFPAY ==
--- NOTE | 2019-09-27 15:15 | SKI_PTH ---
PATIENT: Taco Khan LOC: [facility]#:[id number] AGE/SX: 74/M ROOM: RE09/27/[address]: Gurpreet Tincoo DO : 1945 BED: DIS: 09/27/2019 SPEC #: [id number] RECD: 09/27/19 16:35 STATUS: SHANE REQ #: [id number] KWABENA: 09/27/19 15:[address]: Gurpreet Tinoco DEPT: Surgical Specimen RECD BY: Shala Clarke ENTERED: 09/27/19 16:35 SP TYPE: SKI OT DR: Vandana Valladares Tissues: 1 - SKIN BIOPSY(SHAVE/PUNCH) Procedures: SKIN LEVEL 4 Comments: [id number]
== END 2019-09-27 16:10 ==
LOC: NCHCN 15:50
PROVIDERS: PCP Family Medicine; Visit Provider Otolaryngology Otolaryngology/Facial Plastic Surgery
DX: L82.1 Other seborrheic keratosis (principal)
CPT/HCPCS: 88305

== ENCOUNTER 2019-11-12 13:40 | Outpatient (REF) | payer BC, SELFPAY ==
[2019-11-12 17:24] LABS: ALT 36 U/L (16-63); AST 20 U/L (15-37); Alkaline Phosphatase 95 U/L (46-116); Anion Gap 11.7 mmol/L (3-11); BUN 27 mg/dL (7-18); Bilirubin, Total 0.8 mg/dL (0.2-1.0); CO2 23.3 mmol/L (21.0-32.0); CREATININE 1.26 mg/dL (0.70-1.30); Calcium 9.1 mg/dL (8.5-10.1); Calculated LDL 47 mg/dL (<100); Chloride 105 mmol/L (98-107); Cholesterol 127 mg/dL (<200); Estimated GFR 55.94 (mL/min/1.73m2); Glucose 106 mg/dL (74-106); HDL Cholesterol 64 mg/dL (40-60); Potassium 4.3 mmol/L (3.5-5.1); Sodium 140 mmol/L (136-145); Total Protein 6.9 g/dL (6.4-8.2); Triglyceride 83 mg/dL (<150)
[2019-11-12 17:49] LABS: Hemoglobin A1C 5.8 % (3.8-5.6)
== END 2019-11-12 14:00 ==
LOC: NCHCN 13:40
PROVIDERS: PCP Family Medicine; Visit Provider Family Medicine
DX: R73.03 Prediabetes (principal); E78.5 Hyperlipidemia, unspecified; I10 Essential (primary) hypertension; I25.10 Atherosclerotic heart disease of native coronary artery without angina pectoris
CPT/HCPCS: 80053; 80061; 83036

== ENCOUNTER 2020-03-13 18:27 | Outpatient (REF) | payer BC, SELFPAY ==
--- NOTE | 2020-03-13 09:09 | SKI_PTH ---
PATIENT: Taco Khan LOC: [facility] U#:[id number] AGE/SX: 74/M ROOM: RE03/13/[address]: ETHEL Hood : 1945 BED: DIS: 03/13/2020 SPEC #: [id number] RECD: 03/13/20 18:34 STATUS: SHANE REQ #: [id number] KWABENA: 03/13/20 09:[address]: Jerod Victoria DEPT: Surgical Specimen RECD BY: Shala Clarke ENTERED: 03/13/20 18:35 SP TYPE: DUANE OTHR DR: Vandana Valladares Tissues: 1 - SKIN BIOPSY(SHAVE/PUNCH) Procedures: SKIN LEVEL 4 Comments: [id number]
== END 2020-03-13 18:47 ==
LOC: LBN 18:27
PROVIDERS: PCP Family Medicine; Visit Provider Physician Assistant
DX: L57.0 Actinic keratosis (principal); L57.8 Other skin changes due to chronic exposure to nonionizing radiation; Z85.820 Personal history of malignant melanoma of skin
CPT/HCPCS: 88305

== ENCOUNTER 2020-04-17 16:07 | Outpatient (REF) | payer BC, SELFPAY ==
[2020-04-17 18:22] LABS: Anion Gap 5.2 mmol/L (3-11); BUN 18 mg/dL (7-18); CO2 28.8 mmol/L (21.0-32.0); CREATININE 1.04 mg/dL (0.70-1.30); Calcium 9.3 mg/dL (8.5-10.1); Chloride 104 mmol/L (98-107); Glucose 92 mg/dL (74-106); Potassium 4.2 mmol/L (3.5-5.1); Sodium 138 mmol/L (136-145)
[2020-04-17 18:30] LABS: Hemoglobin A1C 5.7 % (<5.7)
== END 2020-04-17 16:27 ==
LOC: NCHCN 16:07
PROVIDERS: PCP Family Medicine; Visit Provider Family Medicine
DX: I10 Essential (primary) hypertension (principal); I25.10 Atherosclerotic heart disease of native coronary artery without angina pectoris; R73.03 Prediabetes
CPT/HCPCS: 80048; 83036

== ENCOUNTER 2021-03-26 12:28 | Outpatient (CLI) | payer BC, SELFPAY ==
--- NOTE | 2021-03-26 | DI.RAD_ITS ---
Exam(s) XR CHEST 2V PA LATERAL EXAM: XR CHEST 2V PA LATERAL CLINICAL HISTORY: PNEUMONIA J18.9 TECHNIQUE: 2D digital imaging was performed. COMPARISON: CR XR CHEST 2V PA LATERAL from 06/05/2018 FINDINGS: MEDIASTINUM: Normal. HEART: Normal. Mildly tortuous aorta. PULMONARY VASCULATURE: Normal. LUNGS: Clear. No visible pneumonia. PLEURAL SPACE: No pleural effusion or pneumothorax. BONE:Multiple old right rib fractures. Degenerative stool changes and scoliosis in the spine. IMPRESSION: No acute abnormality. DATA REPOSITORY: RADIATION DOSE DELIVERED:
== END 2021-03-26 12:48 ==
PROVIDERS: PCP Family Medicine; Visit Provider Family Medicine
DX: J18.9 Pneumonia, unspecified organism (principal)
CPT/HCPCS: 71046

== ENCOUNTER 2021-03-26 13:22 | Outpatient (REF) | payer BC, SELFPAY ==
[2021-03-28 13:02] LABS: COVID-19 RT-PCR UVMMC Result Negative (Negative)
== END 2021-03-26 13:23 | disposition home or self-care (01) ==
LOC: LBN 13:22
PROVIDERS: PCP Family Medicine; Visit Provider Family Medicine
DX: Z20.822 Contact with and (suspected) exposure to COVID-19 (principal); J06.9 Acute upper respiratory infection, unspecified
CPT/HCPCS: U0003

== ENCOUNTER 2021-07-30 07:54 | Outpatient (REF) | payer BC, SELFPAY ==
[2021-07-30 16:53] LABS: HCT 46.1 % (40.0-50.0); MCH 30.2 pg (27.0-33.0); MCHC 32.5 % (32.0-36.0); MCV 92.9 fL (80-95); MPV 10.3 fL (8.0-11.0); Platelet Count 245 10^3/uL (130-400); RBC 4.96 10^6/uL (4.36-5.78); RDW 12.8 % (11.8-14.1); RDW-SD 43.8 fL; WBC 7.81 10^3/uL (4.4-10.8)
[2021-07-30 18:14] LABS: Anion Gap 7.8 mmol/L (3-11); BUN 21 mg/dL (7-18); CO2 26.2 mmol/L (21.0-32.0); Calcium 8.8 mg/dL (8.5-10.1); Chloride 105 mmol/L (98-107); Glucose 98 mg/dL (74-106); Potassium 4.2 mmol/L (3.5-5.1); Sodium 139 mmol/L (136-145)
== END 2021-07-30 07:55 | disposition home or self-care (01) ==
LOC: NCHCN 07:54
PROVIDERS: PCP Family Medicine; Visit Provider Family Medicine
DX: R73.03 Prediabetes (principal); I10 Essential (primary) hypertension; I25.10 Atherosclerotic heart disease of native coronary artery without angina pectoris
CPT/HCPCS: 80048; 85027; 83036

== ENCOUNTER → 2021-09-07 09:56 | Outpatient (CLI) | payer BC, SELFPAY ==
--- NOTE | 2021-09-07 | DI.RAD_ITS ---
Exam(s) XR HIP RT COMPLETE AP PELVIS EXAM: XR HIP RT COMPLETE AP PELVIS CLINICAL HISTORY: RT HIP PAIN M25.551. TECHNIQUE: 2D digital imaging was performed of the right hip. Three images were obtained. AP pelvis and lateral right hip views were obtained. COMPARISON: No exams were available for comparison FINDINGS: BONES: No acute fracture is present. No bony destructive lesion is seen. JOINTS: No dislocation present. There are mild degenerative changes seen at the hips bilaterally. Th ere are mild degenerative changes seen at the right sacroiliac joint. SOFT TISSUE: Surgical clips are seen inferior to the pelvis. IMPRESSION: Mild degenerative changes seen in the hips bilaterally. Mild degenerative changes seen at the right sacroiliac joint. DATA REPOSITORY: RADIATION DOSE DELIVERED:
--- NOTE | 2021-09-07 | DI.RAD_ITS ---
Exam(s) XR SACROILIAC JOINTS EXAM: XR SACROILIAC JOINTS CLINICAL HISTORY: RT HIP PAIN M25.551. TECHNIQUE: 2D digital imaging was performed. Were obtained. COMPARISON: No exams were available for comparison FINDINGS: Bones: No fracture is present. No bony destructive lesion is seen. Alignment is satisfactory. SI Joint:There is mild sclerosis at the inferior aspect of the right sacroiliac joint. The left sacr oiliac joint is unremarkable. There is no ankylosis or erosion. Soft Tissue: Normal. IMPRESSION: Mild degenerative changes of the right SI joint. DATA REPOSITORY: RADIATION DOSE DELIVERED:
== END ==
PROVIDERS: PCP Family Medicine; Visit Provider Family Medicine
DX: M25.551 Pain in right hip (principal); M53.3 Sacrococcygeal disorders, not elsewhere classified; M16.0 Bilateral primary osteoarthritis of hip
CPT/HCPCS: 72202; 73502

== ENCOUNTER 2021-12-24 09:13 | Outpatient (CLI) | payer MEDICARE, SELFPAY ==
--- NOTE | 2021-12-24 09:00 | DI.RAD_ITS ---
Exam(s) XR LUMBAR SPINE AP, LAT EXAM: XR LUMBAR SPINE AP, LAT CLINICAL HISTORY: low back pain. TECHNIQUE: 2D digital imaging was performed. AP and lateral views. COMPARISON: No exams were available for comparison FINDINGS: Lumbosacral junction not well profiled on lateral view. BONES: No fracture or destructive lesion. Vertebral bodies show small endplate osteophytes. facet h ypertrophy identified greatest at L4-5 and L5-S1. Mild spondylolisthesis at levels.. DISKS: Disc space narrowing on the right at L1-2. Mild disc space narrowing at L4-5. L5-S1 level no t well seen. ALIGNMENT: Mild scoliosis upper lumbar level secondary to asymmetric disc space narrowing at L1-2 SOFT TISSUE: Normal. IMPRESSION: Limited exam. Degenerative changes greatest in the lower lumbar spine. DATA REPOSITORY: RADIATION DOSE DELIVERED:
== END 2021-12-24 09:14 | disposition home or self-care (01) ==
LOC: DIORS 09:13
PROVIDERS: PCP Family Medicine; Referring Provider Family Medicine; Visit Provider Physician Assistant
DX: M47.816 Spondylosis without myelopathy or radiculopathy, lumbar region (principal); M48.061 Spinal stenosis, lumbar region without neurogenic claudication
CPT/HCPCS: 99215; 72100

== ENCOUNTER → 2022-01-21 01:55 | Outpatient (CLI) | payer MEDICARE, SELFPAY ==
--- NOTE | 2022-01-21 06:45 | DI.MRI_ITS ---
Exam(s) MR LUMBAR SPINE WO EXAM: MR LUMBAR SPINE WO CLINICAL HISTORY: PAIN M48.061 SPINAL STENOSIS LUMBAR REGION. TECHNIQUE: Multiplanar multisequence MRI of the Lumbar spine was performed. COMPARISON: CT CT CHEST/ABD/PEL W from 05/16/2018 CR XR LUMBAR SPINE AP, LAT from 12/24/2021 FINDINGS: Bones: The last intervertebral disc space is designated the L5/S1 level for the numbering purpose of this examination. The vertebral body heights are well maintained. There is L5 spondylolysis and gra de 1 spondylolisthesis. Degenerative disc disease and facet arthropathy is seen at multiple levels o f the lumbar spine. The findings are most marked at L1-L2 and L4-L5. There appears to be fusion at L 5-S1. There is a mild right convex scoliosis. Cord: The conus tip ends at the L1 level. It is of normal size and signal intensity. T12-L1: No disc herniations or bulges are present. No central spinal canal or neural foraminal stenos is. L1-2: There is a mild diffuse disc bulge. No significant central spinal canal or right neural forami nal stenosis is present. There is mild left neural foraminal narrowing. L2-3: There is a mild diffuse disc bulge. No central spinal canal or neural foraminal stenosis. L3-4: There is a mild diffuse disc bulge. No significant central spinal canal stenosis is seen. Mil d facet arthropathy is present. No significant neural foraminal stenosis is present. L4-5: There is a moderate size right paracentral disc herniation with extrusion posterior to the L4 v ertebral body. It causes right lateral recess stenosis compressing the right L4 nerve root. There a re degenerative changes of the facets. There is mild central spinal canal stenosis. There is marked right and moderate left neural foraminal stenosis. L5-S1: No disc herniations or bulges are present. No significant central spinal canal stenosis is pre sent. There is marked bilateral neural foraminal stenosis. Soft tissues: The visualized SI joints and sacrum are well maintained. The paraspinal soft tissues ar e unremarkable. IMPRESSION: 1. Moderate size right paracentral L4-5 disc herniation with extrusion posterior to the L4 vertebral body. It causes right lateral recess stenosis compressing the right L4 nerve root. 2. Multilevel degenerative changes in the lumbar spine resulting in central and neural foraminal sten osis as described above. DATA REPOSITORY:
== END ==
PROVIDERS: PCP Family Medicine; Visit Provider Student in an Organized Health Care Education/Training Program
DX: M48.061 Spinal stenosis, lumbar region without neurogenic claudication (principal); M51.26 Other intervertebral disc displacement, lumbar region; M47.816 Spondylosis without myelopathy or radiculopathy, lumbar region
CPT/HCPCS: 72148

== ENCOUNTER 2022-07-31 16:14 | Outpatient (REF) | payer MEDICARE, SELFPAY ==
[2022-07-31 16:24] LABS: Anion Gap 3.8 mmol/L (3-11); BUN 21 mg/dL (7-18); CO2 29.2 mmol/L (21.0-32.0); CREATININE 1.2 mg/dL (0.70-1.30); Calcium 9.2 mg/dL (8.5-10.1); Chloride 106 mmol/L (98-107); Estimated GFR 62.67 (mL/min/1.73m2); Glucose 115 mg/dL (74-106); Potassium 4.7 mmol/L (3.5-5.1); Sodium 139 mmol/L (136-145)
[2022-07-31 16:40] LABS: Hemoglobin A1C 5.9 % (<5.7)
== END 2022-07-31 16:15 | disposition home or self-care (01) ==
LOC: NCHCN 16:14
PROVIDERS: PCP Family Medicine; Visit Provider Family Medicine
DX: R73.03 Prediabetes (principal); I10 Essential (primary) hypertension
CPT/HCPCS: 80048; 83036

== ENCOUNTER 2023-07-04 11:00 | Outpatient (RCR) | payer MEDICARE, SELFPAY | END 2023-07-06 23:59 | disposition home or self-care (01) | LOC: CR 11:00 | PROVIDERS: PCP Family Medicine; Referring Provider Student in an Organized Health Care Education/Training Program; Visit Provider Internal Medicine Cardiovascular Disease | DX: I25.10 Atherosclerotic heart disease of native coronary artery without angina pectoris (principal); Z51.89 Encounter for other specified aftercare | CPT/HCPCS: S9472 ==

== ENCOUNTER 2023-07-04 14:18 | Outpatient (REF) | payer MEDICARE, SELFPAY ==
--- NOTE | 2023-07-04 13:52 | SKI_PTH ---
PATIENT: Taco Khan LOC: N U#:[id number] AGE/SX: 77/M ROOM: RE07/04/[address]: ETHEL Hood : 1945 BED: DIS: 07/04/2023 SPEC #: [id number] RECD: 07/04/23 18:35 STATUS: SHANE REQ #: [id number] KWABENA: 07/04/23 13:[address]: Jerod Victoria DEPT: Surgical Specimen RECD BY: Shala Clarke ENTERED: 07/04/23 18:35 SP TYPE: SKI OTHR DR: Vandana Valladares Tissues: 1 - SKIN BIOPSY(SHAVE/PUNCH) Procedures: SKIN LEVEL 4 Comments: [id number]
== END 2023-07-04 14:19 | disposition home or self-care (01) ==
LOC: LBN 14:18
PROVIDERS: PCP Family Medicine; Visit Provider Physician Assistant
DX: D49.2 Neoplasm of unspecified behavior of bone, soft tissue, and skin (principal); L57.0 Actinic keratosis
CPT/HCPCS: 88305

== ENCOUNTER 2023-08-04 10:15 | Outpatient (RCR) | payer MEDICARE, SELFPAY | END 2023-08-05 23:59 | disposition home or self-care (01) | LOC: CR 10:15 | PROVIDERS: PCP Family Medicine; Referring Provider Student in an Organized Health Care Education/Training Program; Visit Provider Internal Medicine Cardiovascular Disease | DX: I25.10 Atherosclerotic heart disease of native coronary artery without angina pectoris (principal); Z51.89 Encounter for other specified aftercare | CPT/HCPCS: S9472 ==

== ENCOUNTER 2023-08-12 17:18 | Inpatient (IN) | payer MEDICARE, SELFPAY ==
[2023-08-12] VITALS (62 sets, daily range): BP systolic 93–124; BP diastolic 45–71; PULSE 57–70; RESP 10–38; TEMP 35.8–37; O2SAT 91–98
--- NOTE | 2023-08-12 17:15 | RT.EKG_ITS ---
APPROVED REPORT Exam: Resting ECG Reason for Exam: sob Patient Location: E HR:60 bpm ECG Measurements Heart Rate [address] 247 P 12 QRSd 100 QRS 21 QT 371 T -5 QTc 371 Conclusion Sinus rhythm 1st degree block no stemi
[2023-08-12 17:37] LABS: Abs Immature Grans 0.04 10^3/uL (0.0-0.06); Absolute Basophil Count 0.02 10^3/uL (0.0-0.2); Absolute Eosinophil Count 0.06 10^3/uL (0.0-0.7); Absolute Lymphocyte Count 1.53 10^3/uL (1.2-3.4); Absolute Monocyte Count 1.39 10^3/uL (0.1-0.8); Absolute Neutrophil Count 8.83 10^3/uL (1.2-6.7); Basophils % 0.2 %; Eosinophils % 0.5 %; HCT 44.3 % (40.0-50.0); HGB 14.8 g/dL (13.5-17.5); Immature Grans % 0.3 %; Lymphocytes % 12.9 %; MCH 30.8 pg (27.0-33.0); MCHC 33.4 % (32.0-36.0); MCV 92 fL (80-95); MPV 9.4 fL (8.0-11.0); Monocytes % 11.7 %; Neutrophils % 74.4 %; Platelet Count 249 10^3/uL (130-400); RBC 4.81 10^6/uL (4.36-5.78); RDW 12.4 % (11.8-14.1); RDW-SD 42.2 fL; WBC 11.87 10^3/uL (4.4-10.8)
[2023-08-12] MEDS: Ondansetron 4 MG/2 ML VIAL IVP (17:40)
[2023-08-12] MEDS: Aspirin 81 MG CHEW 324 MG CH (17:40)
[2023-08-12 17:53] LABS: ALT 29 U/L (16-63); AST 19 U/L (15-37); Albumin 4.3 g/dL (3.4-5.0); Alkaline Phosphatase 87 U/L (46-116); Anion Gap 8.5 mmol/L (3-11); BUN 45 mg/dL (7-18); Bilirubin, Total 1.9 mg/dL (0.2-1.0); CO2 29.5 mmol/L (21.0-32.0); CREATININE 2.5 mg/dL (0.70-1.30); Calcium 9.3 mg/dL (8.5-10.1); Chloride 96 mmol/L (98-107); Estimated GFR 25.82 (mL/min/1.73m2); Glucose 114 mg/dL (74-106); Magnesium 2.4 mg/dL (1.8-2.4); Potassium 5.4 mmol/L (3.5-5.1); Sodium 134 mmol/L (136-145); Total Protein 7.9 g/dL (6.4-8.2)
--- NOTE | 2023-08-12 17:57 | W.ED.GENAD ---
Discharge Plan Disposition Patient Disposition: Admit to [facility] Condition: Fair Discharge Details Chief Complaint: SOB Clinical Impression: JOHN (acute kidney injury), SBO (small bowel obstruction), Vomiting Primary Care Provider: Vandana Valaldares ED Provider: Tho Gonzales Home Meds and New Rx's Prescriptions: No Action duloxetine 30 mg capsule,delayed release(DR/EC) 30 mg PO DAILY metoprolol succinate 50 mg tablet extended release 24 hr 50 mg PO DAILY atorvastatin 40 MG tablet 40 mg PO DAILY aspirin [Aspir-81] 81 MG tablet,delayed release (DR/EC) 81 mg PO HS nitroglycerin [Nitrostat] 0.4 MG tablet, sublingual 0.4 mg Sublingual ONCE hydrochlorothiazide 12.5 mg tablet 12.5 mg PO DAILY acetaminophen [Tylenol Arthritis Pain] 650 mg tablet extended release 650 mg PO PRN losartan 50 mg tablet 100 mg PO DAILY diltiazem HCl 240 MG capsule,extended release 24hr 240 mg PO DAILY HPI General Date/Time Provider Initiated Documentation: 08/12/23 17:20. Limitations to Documentation: no limitations. Information obtained by: patient and family. HPI Narrative: 77-year-old gentleman with past medical history of CAD status post stenting, currently in cardiac rehab, hypertension presents for evaluation of shortness of breath and abdominal pain. Patient reports for the last few days his blood pressure has been running low. He does daily weights and blood pressure at home. He states that he has lost 4 pounds over the last week because they have been doing colons, he reports that his blood pressure has been lower than usual, but no adjustments have been made to his medication. He reports he started feeling poorly that yesterday. He was having some symptoms of fatigue, shortness of breath on exertion. Denies any chest pain. he reports 2 episodes of vomiting yesterday and having some nausea today but no additional vomiting. No diarrhea. He reports that he was out trying to play golf today when he became very short of breath and could not walk around the golf course. He states that he is normally able to do this easily. also reports that this morning he was not able to walk around the house and garden without feeling short of breath and he had to sit down and rest. He reports epigastric abdominal pain a sensation of fullness and gas. Has not been relieved with Mylanta or gas relieving medications Related Data Home Medications Medication Instructions Recorded Confirmed aspirin 81 mg tablet,delayed 81 mg PO HS 08/28/15 08/12/23 release (Aspir-) atorvastatin 40 mg tablet 40 mg PO DAILY 08/28/15 08/12/23 nitroglycerin 0.4 mg sublingual 0.4 mg sublingual ONCE 08/28/15 08/12/23 tablet (Nitrostat) diltiazem HCl 240 mg 240 mg PO DAILY 11/25/17 08/12/23 capsule,extended release 24 hr acetaminophen 650 mg 650 mg PO PRN 12/14/20 08/12/23 tablet,extended release (Tylenol Arthritis Pain) hydrochlorothiazide 12.5 mg tablet 12.5 mg PO DAILY 12/14/20 08/12/23 losartan 50 mg tablet 100 mg PO DAILY 10/10/21 08/12/23 duloxetine 30 mg capsule,delayed 30 mg PO DAILY Anxiety about bacl 07/04/23 08/12/23 release pain. metoprolol succinate 50 mg 50 mg PO DAILY 07/04/23 08/12/23 tablet,extended release 24 hr Allergies Allergy/AdvReac Type Severity Reaction Status Date / Time lisinopril AdvReac Intermediate cough Verified 08/12/23 17:40 ramipril AdvReac cough Verified 08/12/23 17:40 General Stated Complaint: SOB JOHN: 3 Exam Narrative Exam Narrative: Review of Systems: All systems reviewed & are unremarkable except as noted in HPI and below Well-developed, appears uncomfortable Cold and clammy NCAT PERRL, normal conjunctiva RRR, no murmur Unlabored respiratory effort, clear bilaterally Slightly distended abdomen, soft, nontender Extremities w/o deformity, no cyanosis, no edema no focal neurologic deficits Appropriate mood and affect Course Vital Signs Vital signs: Vital Signs Temperature 35.8 C L 08/12/23 17:21 Pulse 62 08/12/23 17:21 Respiratory Rate 20 08/12/23 17:21 Blood Pressure 116/60 08/12/23 17:21 Pulse Oximetry 97 08/12/23 17:21 Temperature 35.8 C L 08/12/23 17:21 Temperature Source Tympanic 08/12/23 17:21 Pulse 60 08/12/23 17:46 Pulse 61 08/12/23 17:46 Respiratory Rate 18 08/12/23 17:49 Respiratory Effort Normal 08/12/23 17:49 Respiratory Depth Normal 08/12/23 17:49 Respiratory Pattern Normal 08/12/23 17:49 Blood Pressure 117/58 L 08/12/23 17:46 Blood Pressure Mean 77 08/12/23 17:46 Blood Pressure Position Sitting 08/12/23 17:21 Pulse Oximetry 98 08/12/23 17:48 Oxygen Delivery Method Room Air 08/12/23 17:48 Oxygen Flow Rate 0 08/12/23 17:21 Lab/Test Results Lab/Test Results: Laboratory Tests Range/Units 08/12/23 17:32 WBC (4.4-10.8) 10^3/uL 11.87 H RBC (4.36-5.78) 10^6/uL 4.81 Hgb (13.5-17.5) g/dL 14.8 Hct (40.0-50.0) % 44.3 MCV (80-95) fL 92 MCH (27.0-33.0) pg 30.8 MCHC (32.0-36.0) % 33.4 RDW (11.8-14.1) % 12.4 Plt Count (130-400) 10^3/uL 249 MPV (8.0-11.0) fL 9.4 Immature Gran % % 0.3 Neutrophils % % 74.4 Lymphocytes % % 12.9 Monocytes % % 11.7 Eosinophils % % 0.5 Basophils % % 0.2 Nucleated RBC % (0.0-0.3) % 0.0 Absolute Neutrophils (1.2-6.7) 10^3/uL 8.83 H Absolute Lymphocytes (1.2-3.4) 10^3/uL 1.53 Absolute Monocytes (0.1-0.8) 10^3/uL 1.39 H Absolute Eosinophils (0.0-0.7) 10^3/uL 0.06 Absolute Basophils (0.0-0.2) 10^3/uL 0.02 Medical Decision Making Urgent evaluation of exertional shortness of breath and abdominal pain with vomiting. Patient has significant coronary history with stenting and is currently in cardiac rehab. The symptoms can certainly be an anginal equivalent. He is not having active chest pain at this time and his EKG does not demonstrate any acute ischemia. He is having some abdominal pain and is noted to have that he has some abdominal distention. He denies any prior evaluation of his aorta. Visual differential also includes acute aortic pathology like a AAA. Will get lab work, cardiac enzymes, monitor closely and get CT imaging to evaluate his thorax and abdomen. 1800 Lab work reviewed. There is significant JOHN. With a creatinine of 2.5, BUN 45, potassium 5.4. The patient has a slightly elevated bilirubin but no elevation in LFTs. The last lab work here is in 2022 and the patient has always had normal renal function. I suspect that there is an element of volume depletion. He is using these herbal supplements for his cleanse and is said that he is lost 4 pounds. It is possible the one of the supplements may be a diuretic of some kind. Plan for oral and IV hydration. Given these findings I have a lower suspicion for aorta involvement and given his renal injury at this time, do not feel that the should get CT with contrast. 1900 CT concerning for SBO. discussed with gen surg, given his cardiac comorbidities they are requesting hospital medicine admit. Discussed with HM. HM and Surg discussed together and patient will be admitted to surg with HM consultation. Patient updated on plan. Medical Records Medical records reviewed: Yes I reviewed the patient's medical records. Lab Data Lab results reviewed: Yes I reviewed the patient's lab results. Quality:SDOH Health Related Social Needs: No Data to Display [facility] All Active Problems (Updated 08/12/23 @ 20:50 by Tho Gonzales MD) Vomiting (Acute) SBO (small bowel obstruction) (Acute) JOHN (acute kidney injury) (Acute) Small bowel obstruction (Acute) Cerumen debris on tympanic membrane of right ear (Acute) Abnormal skin growth (Acute) History of skin cancer (Acute) Nasal vestibulitis (Acute) Lumbar spinal stenosis (Acute) History of melanoma (Acute) Malignant basal cell neoplasm of skin (Acute) Actinic keratoses (Acute) Sun-damaged skin (Acute) Neoplasm of unspecified behavior of bone, soft tissue, and skin (Acute) Malignant melanoma of left shoulder (Chronic) Hair abnormality (Acute) Abscess of back (Acute) S/P chest tube placement (Acute ~05/16/18) Subcutaneous emphysema due to trauma (Acute) Traumatic hemopneumothorax, initial encounter (Acute) Fracture of five ribs of right side (Acute) Fall from slipping on ice (Acute) Medical History Hearing loss, bilateral Alcohol consumption binge drinking Allergic rhinitis Meralgia paresthetica Rosacea Obesity Erectile dysfunction History of adenomatous polyp of colon Prediabetes Hyperlipidemia Hypertension Basal cell carcinoma Angina pectoris CAD (coronary artery disease) Surgical History H/O shoulder surgery History of excision of lesion S/P cataract surgery (12/01/17) Repair of umbilical hernia Coronary Stent Colonoscopy - IV Sedation (11/13/15) Dr Johnson, repeat 10 yrs Family History Other Cancer Heart disease Substance use disorder Social History Smoking/Tobacco Use Status: Never Smoking risk assessment performed?: Yes Alcohol Intake: current Alcohol Intake frequency: a few times a month Drug use: Never Household members: spouse Pets and animals: Yes Pets and animals: dog(s) What is your relationship status?: Panel score (0-1 are the most socially isolated patients): 1 Do you feel safe in your relationship?: Yes PAWSS Have you Been Recently Intoxicated or Drunk Within the Last 30 days?: No Have you Ever Experienced Previous Episodes of Alcohol Withdrawal?: No Have you ever Experienced Withdrawal Seizures?: No Have you ever Experienced Delirium Tremens(DT)s?: No Have you ever undergone Alcohol Rehabilitation Treatment (i.e, inpt ot outpatient treatment programs)?: No Have you ever Experienced Blackouts?: No Have you ever Combined Alcohol with other Downers within the last 90 days?: No Have you ever Combined Alcohol with any other Substance of Abuse during the last 90 days?: No Positive Blood Alcohol level on Presentation? [PCS.BAL]: No Evidence of Increased Autonomic Activity (i.e. HR>120, tremor, sweating, agitation, nausea)?: No Result: 0
[2023-08-12 18:03] LABS: NT-proBNP 164 pg/mL (<300); Troponin I < 50 ng/L (< or =60)
--- NOTE | 2023-08-12 18:30 | DI.CT_ITS ---
Exam(s) CT ABDOMEN PELVIS WO EXAM: CT ABDOMEN PELVIS WO CLINICAL HISTORY: ABD PAIN. TECHNIQUE: Imaging Protocol: Axial computed tomography images with coronal and sagittal reformatted images were created and reviewed. Oral: / no COMPARISON: CT CT CHEST/ABD/PEL W from 05/16/2018 CR XR SACROILIAC JOINTS from 09/07/2021 CR XR LUMBAR SPINE AP, LAT from 12/24/2021 FINDINGS: Lung Bases: No acute findings. Old right rib fractures. Liver: Normal density. No suspicious mass. Gallbladder and biliary tract: No radiodense calculus or biliary dilation. Pancreas: Normal density, no abnormal calcifications or inflammatory process. Spleen: Normal. Kidneys: Normal size, contour and axis. No radiodense stones or obstructive uropathy. No suspicious m asses seen. Adrenal glands: No masses seen. Lymph nodes: Within normal limits. Vasculature: Abdominal aorta non-dilated. Soft tissues: Bilateral fatty containing inguinal hernias. Bladder: Nearly empty and unable to be evaluate no mass or calculi. Bowel: Abnormal dilatation of multiple loops of small bowel transition point in mid abdomen. No pneu matosis. Small by diverticulum of the 3rd portion of the duodenum. Sigmoid diverticulosis. No evid ence of diverticulitis. Peritoneal cavity: No ascites, collection or mesenteric inflammatory response. No free air. Reproductive organs: Unremarkable. Bones: Severe degenerative changes in the lumbar spine coverage particularly at L5-S1 where there is L5 spondylolysis and mild spondylolisthesis.. IMPRESSION: Two small bowel obstruction with transition point in the mid abdomen. No bowel wall thickening or pn eumatosis. RADIATION DOSE DELIVERED: 1,278.86mGy.cm Total DLP DATA REPOSITORY: All CT scans at this facility are submitted to the National Radiology Data Registry (NRDR) Dose Index Registry (DIR) with the [employer] (ACR). RADIATION OPTIMIZATION: All CT scans at this facility use at least one of these dose optimization te chniques: automated exposure control; mA and/or kV adjustment per patient size (includes targeted exa ms where dose is matched to clinical indication); or iterative reconstruction.
[2023-08-12 18:33] LABS: Lipase 29 U/L (16-77)
[2023-08-12] MEDS: Normal Saline 1,000 ML 1000 ML IV (18:33)
[2023-08-12] MEDS: Normal Saline 1,000 ML 125 ML IV (19:46)
--- NOTE | 2023-08-12 19:54 | W.SURGCON ---
Date of service: 08/12/23 Time of Service: 19:54 Assessment and Plan Assessment and plan (1) SBO (small bowel obstruction): Status: Acute Assessment and plan: -No fever/white blood cell count/peritoneal signs. Continue with conservative medical management at this time. -ngt decompression -gastrografin challenge -pulm toilet and dvt proph -medical managment of CAD/JOHN -Pain management -Encourage ambulation in a.m. -Supportive care This document was created with voice activated software and may contain errors. 35 mins spent in direct pt care and 40 in non face to face time (2) JOHN (acute kidney injury): Status: Acute Assessment and plan: Per hospitalist (3) History of melanoma: Status: Acute (4) Hyperlipidemia: (5) Prediabetes: (6) Obesity: (7) DJD (degenerative joint disease), lumbar: Status: Acute (8) Bilat ing hernia: Status: Acute Assessment and plan: Not causing obstruction (9) Diverticula of colon: Status: Acute (10) Hypertension: Status: Chronic Assessment and plan: Per hospitalist (11) CAD (coronary artery disease): Status: Chronic Assessment and plan: Per hospitalist History of Present Illness Narrative: Patient is a 77-year-old male who presented to the ER today complaining of abdominal pain and nausea vomiting. He has had a bowel obstruction in the past. It resolved with medical management. The only abdominal surgery he has had is a umbilical hernia repair without mesh for some 20 years ago. He denies any trauma. He denies any recent travel. He and his are currently doing a colon cleanse. He had a bowel movement today it was quite small. He has thrown up multiple times today and has not been able to eat. He currently denies any chest pain or shortness of breath. He did note decreased exercise tolerance today. He had an angioplasty in May and is currently in cardiac rehab. He was on Plavix initially after his cardiac cath. He is not on it any further. He is only on a baby aspirin daily. I did personally review the CT and labs. Hospitalist will consult for management of cardiac issues and JOHN. Past medical history is reviewed with the patient as well. I did discuss the case with Dr. Durán and Dr. Mcintosh ED 77-year-old gentleman with past medical history of CAD status post stenting, currently in cardiac rehab, hypertension presents for evaluation of shortness of breath and abdominal pain. Patient reports for the last few days his blood pressure has been running low. He does daily weights and blood pressure at home. He states that he has lost 4 pounds over the last week because they have been doing colons, he reports that his blood pressure has been lower than usual, but no adjustments have been made to his medication. He reports he started feeling poorly that yesterday. He was having some symptoms of fatigue, shortness of breath on exertion. Denies any chest pain. he reports 2 episodes of vomiting yesterday and having some nausea today but no additional vomiting. No diarrhea. He reports that he was out trying to play golf today when he became very short of breath and could not walk around the golf course. He states that he is normally able to do this easily. also reports that this morning he was not able to walk around the house and garden without feeling short of breath and he had to sit down and rest. He reports epigastric abdominal pain a sensation of fullness and gas. Has not been relieved with Mylanta or gas relieving medications Review of Systems All systems reviewed & are unremarkable except as noted in HPI and below PFSH All Active Problems (Updated 08/12/23 @ 21:58 by NISHANT THAKKAR) Diverticula of colon (Acute) Bilat ing hernia (Acute) DJD (degenerative joint disease), lumbar (Acute) Hypertension (Chronic) CAD (coronary artery disease) (Chronic) Vomiting (Acute) SBO (small bowel obstruction) (Acute) JOHN (acute kidney injury) (Acute) Small bowel obstruction (Acute) Cerumen debris on tympanic membrane of right ear (Acute) Abnormal skin growth (Acute) History of skin cancer (Acute) Nasal vestibulitis (Acute) Lumbar spinal stenosis (Acute) History of melanoma (Acute) Malignant basal cell neoplasm of skin (Acute) Actinic keratoses (Acute) Sun-damaged skin (Acute) Neoplasm of unspecified behavior of bone, soft tissue, and skin (Acute) Malignant melanoma of left shoulder (Chronic) Hair abnormality (Acute) Abscess of back (Acute) S/P chest tube placement (Acute ~05/16/18) Traumatic hemopneumothorax, initial encounter (Acute) Fracture of five ribs of right side (Acute) Fall from slipping on ice (Acute) Medical History (Updated 08/12/23 @ 21:58 by NISHANT THAKKAR) Subcutaneous emphysema due to trauma Hearing loss, bilateral Alcohol consumption binge drinking Allergic rhinitis Meralgia paresthetica Rosacea Obesity Erectile dysfunction History of adenomatous polyp of colon Prediabetes Hyperlipidemia Basal cell carcinoma Angina pectoris Surgical History H/O shoulder surgery History of excision of lesion S/P cataract surgery (12/01/17) Repair of umbilical hernia Coronary Stent Colonoscopy - IV Sedation (11/13/15) Dr Johnson, repeat 10 yrs Family History Other Cancer Heart disease Substance use disorder Social History Smoking/Tobacco Use Status: Never Smoking risk assessment performed?: Yes Alcohol Intake: current Alcohol Intake frequency: a few times a month Drug use: Never Household members: spouse Pets and animals: Yes Pets and animals: dog(s) What is your relationship status?: Panel score (0-1 are the most socially isolated patients): 1 Do you feel safe in your relationship?: Yes Exam Narrative Exam Narrative: PHYSICAL EXAM GENERAL APPEARANCE: Alert, healthy appearance, oriented, x 3,? in no acute distress HYDRATION: Well hydrated HEAD, EYES, EARS, NECK, THROAT: Head is normocephalic, pupils equal, round, reactive to light and accommodation, ocular movement intact, sclera clear and no jaundice. ?Dentition intact. LUNGS: normal respiration/normal chest excursion. ?Clear to auscultation bilaterally. ?HEART: Regular rate and rhythm. no murmurs ABDOMEN: Results Last Vital Signs Temp 35.8 C L 08/12/23 17:21 Pulse 61 08/12/23 18:31 Resp 21 08/12/23 18:31 BP 116/71 08/12/23 18:31 Pulse Ox 96 08/12/23 18:31 Labs 08/12/23 17:32 08/12/23 17:32 Labs: Laboratory Results - last 24 hr 08/12/23 17:32 WBC 11.87 H RBC 4.81 Hgb 14.8 Hct 44.3 MCV 92 MCH 30.8 MCHC 33.4 RDW 12.4 Plt Count 249 MPV 9.4 Immature Gran % 0.3 Neutrophils % 74.4 Lymphocytes % 12.9 Monocytes % 11.7 Eosinophils % 0.5 Basophils % 0.2 Nucleated RBC % 0.0 Absolute Neutrophils 8.83 H Absolute Lymphocytes 1.53 Absolute Monocytes 1.39 H Absolute Eosinophils 0.06 Absolute Basophils 0.02 Sodium 134 L Potassium 5.4 H Chloride 96 L Carbon Dioxide 29.5 Anion Gap 8.5 BUN 45 H Creatinine 2.5 H Est GFR (CKD-EPI 2020) 25.82 Glucose 114 H Calcium 9.3 Magnesium 2.4 Total Bilirubin 1.9 H AST 19 ALT 29 Alkaline Phosphatase 87 Troponin I < 50 NT-Pro-B Natriuret Pep 164 Total Protein 7.9 Albumin 4.3 Lipase 29
--- NOTE | 2023-08-12 20:18 | W.MEDCONSULT ---
Date of service: 08/12/23 Time of Service: 20:18 Assessment and Plan Assessment and plan (1) Small bowel obstruction: Status: Acute Assessment and plan: SBO: management per Surgery. The medical issues as follows: 1. CAD: inactive. Would continue ASA as is once able to take PO. Would continue Lopressor, but if not taking PO would bridge with IV Lopressor 5 mg q6H. 2. HTN: Hold all except Lopressor (as above) 3. JOHN: Likely pre-renal due to recent poor PO, Lisinopril may be contributing. Advise hold DIANA, hydrate and daily BMP History of Present Illness History of Present Illness Chief Complaint: abdominal pain Narrative: 77 male with remote h/o CAD, s/p multiple stents in (presenting wtih exertional dyspnea), HTN. Here with 2 days of nausea and epigastric pain. W/u notable for SBO and patient is being admitted to surgical service. I was asked to evaluate any medical issues. CAD: Patient denies any CP or exertional dyspnea. EKG WNL and troponin negative. JOHN: BUN 45/Cr 2.1. Urine sediment is pending. He has recently been undergoing some colonic cleansing regimen but reports that this does not in fact cause diarrhea. However he has not been eating or drinking anything substantial for two days. HTN: reports recent BP have been low . Remains on usual regimen of HCTZ, Lopressor, Diltiazem and Lisinopril Review of Systems Narrative: per HPI PFSH All Active Problems (Updated 08/12/23 @ 20:27 by Isaias Durán MD) Small bowel obstruction (Acute) Cerumen debris on tympanic membrane of right ear (Acute) Abnormal skin growth (Acute) History of skin cancer (Acute) Nasal vestibulitis (Acute) Lumbar spinal stenosis (Acute) History of melanoma (Acute) Malignant basal cell neoplasm of skin (Acute) Actinic keratoses (Acute) Sun-damaged skin (Acute) Neoplasm of unspecified behavior of bone, soft tissue, and skin (Acute) Malignant melanoma of left shoulder (Chronic) Hair abnormality (Acute) Abscess of back (Acute) S/P chest tube placement (Acute ~05/16/18) Subcutaneous emphysema due to trauma (Acute) Traumatic hemopneumothorax, initial encounter (Acute) Fracture of five ribs of right side (Acute) Fall from slipping on ice (Acute) Medical History Hearing loss, bilateral Alcohol consumption binge drinking Allergic rhinitis Meralgia paresthetica Rosacea Obesity Erectile dysfunction History of adenomatous polyp of colon Prediabetes Hyperlipidemia Hypertension Basal cell carcinoma Angina pectoris CAD (coronary artery disease) Surgical History H/O shoulder surgery History of excision of lesion S/P cataract surgery (12/01/17) Repair of umbilical hernia Coronary Stent Colonoscopy - IV Sedation (11/13/15) Dr Johnson, repeat 10 yrs Family History Other Cancer Heart disease Substance use disorder Social History Smoking/Tobacco Use Status: Never Smoking risk assessment performed?: Yes Alcohol Intake: current Alcohol Intake frequency: a few times a month Drug use: Never Household members: spouse Pets and animals: Yes Pets and animals: dog(s) What is your relationship status?: Panel score (0-1 are the most socially isolated patients): 1 Do you feel safe in your relationship?: Yes Exam Narrative Exam Narrative: 116/71, 61, 35.8, 21, 96% RA. HEENT atraumatic; neck supple, w/o JVD; lungs clear; heart RRR; abdomen mild to moderate epigastric tenderness; extremities w/o edema; neuro Ox3, lucid, moves all 4s Results Last Vital Signs Temp 35.8 C L 08/12/23 17:21 Pulse 61 08/12/23 18:31 Resp 21 08/12/23 18:31 BP 116/71 08/12/23 18:31 Pulse Ox 96 08/12/23 18:31 Labs 08/12/23 17:32 08/12/23 17:32 Labs: Laboratory Results - last 24 hr 08/12/23 17:32 WBC 11.87 H RBC 4.81 Hgb 14.8 Hct 44.3 MCV 92 MCH 30.8 MCHC 33.4 RDW 12.4 Plt Count 249 MPV 9.4 Immature Gran % 0.3 Neutrophils % 74.4 Lymphocytes % 12.9 Monocytes % 11.7 Eosinophils % 0.5 Basophils % 0.2 Nucleated RBC % 0.0 Absolute Neutrophils 8.83 H Absolute Lymphocytes 1.53 Absolute Monocytes 1.39 H Absolute Eosinophils 0.06 Absolute Basophils 0.02 Sodium 134 L Potassium 5.4 H Chloride 96 L Carbon Dioxide 29.5 Anion Gap 8.5 BUN 45 H Creatinine 2.5 H Est GFR (CKD-EPI 2020) 25.82 Glucose 114 H Calcium 9.3 Magnesium 2.4 Total Bilirubin 1.9 H AST 19 ALT 29 Alkaline Phosphatase 87 Troponin I < 50 NT-Pro-B Natriuret Pep 164 Total Protein 7.9 Albumin 4.3 Lipase 29
[2023-08-12 21:37] LABS: Troponin I < 50 ng/L (< or =60)
[2023-08-12] MEDS: DEXTROSE 5%-0.45% SALINE 1,000 ML 75 ML IV (22:46)
[2023-08-12] MEDS: ACETAMINOPHEN 1,000 MG/100 ML BTL 400 MG IVPB (22:47)
[2023-08-12] MEDS: FAMOTIDINE 20 MG in Normal Saline 100 ML 400 MG IVPB (22:49)
[2023-08-12] MEDS: Enoxaparin 40 MG/0.4 ML SYR SC (22:50)
[2023-08-12] MEDS: MORPHine 2 MG/ML SYR IVP (23:12)
--- NOTE | 2023-08-12 23:30 | DI.RAD_ITS ---
Exam(s) XR PORTABLE CHEST AP POST LINE EXAM: XR PORTABLE CHEST AP POST LINE CLINICAL HISTORY: NG tube placed TECHNIQUE: 2D digital imaging was performed. COMPARISON: CR XR CHEST 2V PA LATERAL from 03/26/2021 FINDINGS: Exam is limited by under penetration. A nasogastric tube is seen which projects in the fundus of th e stomach. LUNGS: Clear. No pleural abnormality seen. HEART: Normal size. AORTA: Normal diameter. BONES: Unremarkable old right rib fractures. Degenerative changes in the spine. Soft tissues: Unremarkable. IMPRESSION: No acute findings. NG-tube projects in fundus of stomach. DATA REPOSITORY: RADIATION DOSE DELIVERED:
[2023-08-13] VITALS (38 sets, daily range): BP systolic 114–154; BP diastolic 63–98; PULSE 52–80; RESP 13–19; TEMP 36.4–36.7; O2SAT 93–97
--- NOTE | 2023-08-13 01:54 | DI.VRAD_ITS ---
PROCEDURE INFORMATION: Exam: XR Chest Exam date and time: 08/13/2023 12:01 AM Age: 77 years old Clinical indication: Device placement; Patient HX: Ng tube placement TECHNIQUE: Imaging protocol: Radiologic exam of the chest. Views: 1 view. COMPARISON: CR XR CHEST 2V PA LATERAL 03/26/2021 11:07 AM FINDINGS: Tubes, catheters and devices: NG tube tip overlies stomach with side hole at gastroesophageal junction. Lungs: Unremarkable. No consolidation. Pleural spaces: Unremarkable. No pleural effusion. No pneumothorax. Heart/Mediastinum: Unremarkable. No cardiomegaly. Bones/joints: Unremarkable. IMPRESSION: No acute finding. Dictated and Authenticated by: Don Delacruz MD. Ordering:ROSINA Sanches MD
[2023-08-13] MEDS: Lidocaine 2% Jelly 6 ML SYR (03:26)
[2023-08-13 03:34] LABS: Bilirubin Small (Negative); Blood Negative (Negative); Clarity Sl Cloudy (Clear); Glucose Negative (Negative); Ketones 15 mg/dL (Negative); Leukocyte Esterase Negative (Negative); Nitrite Negative (Negative); Urobilinogen 0.2 mg/dL (Up to 0.2)
[2023-08-13] MEDS: ACETAMINOPHEN 1,000 MG/100 ML BTL 400 MG IVPB ×3 (05:36→22:15)
--- NOTE | 2023-08-13 07:00 | DI.RAD_ITS ---
Exam(s) XR ABDOMEN FLAT PLATE EXAM: 2D digital imaging was performed. CLINICAL HISTORY: sbo. COMPARISON: CT CT ABDOMEN PELVIS WO from 08/12/2023 TECHNIQUE: Supine views of the abdomen performed. FINDINGS: BOWEL GAS PATTERN: Multiple dilated loops of small bowel in the central abdomen. CALCIFICATIONS: No radiopaque calcifications. OSSEOUS STRUCTURES: Degenerative changes and scoliosis in the spine. OTHER FINDINGS: None a gastric tube projects in fundus of stomach. Lung bases are clear. IMPRESSION: 1. Similar small bowel distension compared to prior CT. DATA REPOSITORY: RADIATION DOSE DELIVERED:
[2023-08-13 07:18] LABS: Anion Gap 10.7 mmol/L (3-11); BUN 45 mg/dL (7-18); CO2 24.3 mmol/L (21.0-32.0); CREATININE 2.1 mg/dL (0.70-1.30); Calcium 7.9 mg/dL (8.5-10.1); Chloride 101 mmol/L (98-107); Estimated GFR 31.82 (mL/min/1.73m2); Glucose 107 mg/dL (74-106); Magnesium 2.4 mg/dL (1.8-2.4); Potassium 3.9 mmol/L (3.5-5.1); Sodium 136 mmol/L (136-145)
[2023-08-13] MEDS: FAMOTIDINE 20 MG in Normal Saline 100 ML 400 MG IVPB ×2 (08:33→21:20)
[2023-08-13] MEDS: Metoprolol 5 MG/5 ML VIAL 2.5 MG IVP ×3 (08:34→20:31)
[2023-08-13] MEDS: DULoxetine 30 MG CAP PO (08:36)
[2023-08-13] MEDS: Normal Saline Flush 10 ML SYR IVP ×4 (08:36→20:43)
--- NOTE | 2023-08-13 08:44 | PGE_ITS ---
Date of Service Date of service: 08/13/23 Time of Service: 08:44 Assessment and Plan Assessment and plan (1) Small bowel obstruction: Status: Acute Assessment and plan: Abdominal pain is well controlled NG tube in place with 275 mL output Hypoactive bowel sounds. Strongly encouraged activity OOB, ambulation and sitting in the chair. Mujica in place with light, yellow colored urine. Continue with IV hydration, pain management for conservative management of SBO. Subjective Subjective Interval history since last seen: Arrive with patient resting comfortably in bed. He states he is having some abdominal pain around his umbilicus. Denies any nausea or vomiting. He is eager to have his NG tube d/c. He reports that he is passing flatus, no BM since yesterday morning. Exam Const General: cooperative, healthy appearing and comfortable Orientation: alert and oriented x3 Resp Effort & Inspection: normal respiratory effort, no audible wheezes and no cough GI Inspection: normal to inspection Palpation: soft, no guarding and tender periumbilically Auscultation: hypoactive bowel sounds Objective Last Vital Signs Temp 37 C 08/12/23 21:50 Pulse 64 08/13/23 08:34 Resp 14 08/13/23 03:10 BP 118/67 08/13/23 08:34 Pulse Ox 95 08/13/23 03:10 Laboratory Results - last 24 hr 08/12/23 08/12/23 08/12/23 17:32 21:00 21:16 WBC 11.87 H RBC 4.81 Hgb 14.8 Hct 44.3 MCV 92 MCH 30.8 MCHC 33.4 RDW 12.4 Plt Count 249 MPV 9.4 Immature Gran % 0.3 Neutrophils % 74.4 Lymphocytes % 12.9 Monocytes % 11.7 Eosinophils % 0.5 Basophils % 0.2 Nucleated RBC % 0.0 Absolute Neutrophils 8.83 H Absolute Lymphocytes 1.53 Absolute Monocytes 1.39 H Absolute Eosinophils 0.06 Absolute Basophils 0.02 Sodium 134 L Potassium 5.4 H Chloride 96 L Carbon Dioxide 29.5 Anion Gap 8.5 BUN 45 H Creatinine 2.5 H Est GFR (CKD-EPI 2020) 25.82 Glucose 114 H Calcium 9.3 Magnesium 2.4 Total Bilirubin 1.9 H AST 19 ALT 29 Alkaline Phosphatase 87 Troponin I < 50 Cancelled < 50 NT-Pro-B Natriuret Pep 164 Total Protein 7.9 Albumin 4.3 Lipase 29 Urine Color Urine Clarity Urine pH Ur Specific [place] Urine Protein Urine Ketones Urine Blood Urine Nitrite Urine Bilirubin Urine Urobilinogen Ur Leukocyte Esterase Urine Glucose 08/13/23 08/13/23 02:38 06:03 WBC RBC Hgb Hct MCV MCH MCHC RDW Plt Count MPV Immature Gran % Neutrophils % Lymphocytes % Monocytes % Eosinophils % Basophils % Nucleated RBC % Absolute Neutrophils Absolute Lymphocytes Absolute Monocytes Absolute Eosinophils Absolute Basophils Sodium 136 Potassium 3.9 D Chloride 101 Carbon Dioxide 24.3 Anion Gap 10.7 BUN 45 H Creatinine 2.1 H Est GFR (CKD-EPI 2020) 31.82 Glucose 107 H Calcium 7.9 L Magnesium 2.4 Total Bilirubin AST ALT Alkaline Phosphatase Troponin I NT-Pro-B Natriuret Pep Total Protein Albumin Lipase Urine Color Yellow Urine Clarity Sl Cloudy Urine pH 5.0 Ur Specific [place] 1.020 Urine Protein Trace Urine Ketones 15 H Urine Blood Negative Urine Nitrite Negative Urine Bilirubin Small H Urine Urobilinogen 0.2 Ur Leukocyte Esterase Negative Urine Glucose Negative PAWSS Have you Been Recently Intoxicated or Drunk Within the Last 30 days?: No Have you Ever Experienced Previous Episodes of Alcohol Withdrawal?: No Have you ever Experienced Withdrawal Seizures?: No Have you ever Experienced Delirium Tremens(DT)s?: No Have you ever undergone Alcohol Rehabilitation Treatment (i.e, inpt ot outpatient treatment programs)?: No Have you ever Experienced Blackouts?: No Have you ever Combined Alcohol with other Downers within the last 90 days?: No Have you ever Combined Alcohol with any other Substance of Abuse during the last 90 days?: No Positive Blood Alcohol level on Presentation? [PCS.BAL]: No Evidence of Increased Autonomic Activity (i.e. HR>120, tremor, sweating, agitation, nausea)?: No Result: 0 Time Spent with Patient Time Spent with Patient: <25 minutes Time was spent: preparing to see the patient(eg.review tests), obtaining and/or reviewing separately otained hiistory and counseling the patient
--- NOTE | 2023-08-13 09:11 | W.PM.PROGNOT ---
Date of Service Date of service: 08/13/23 Time of Service: 09:11 Assessment and Plan Assessment and plan (1) Small bowel obstruction: Status: Acute Assessment and plan: SBO: management per Surgery, appears to be improving. Given I.S. this morning for atelectasis (2) JOHN (acute kidney injury): Status: Acute Assessment and plan: Prerenal, improving with IV fluids. Continue to monitor, holding DIANA-inhibitor. Hyperkalemia normalized. (3) Hypertension: Status: Chronic Assessment and plan: Holding all antihypertensives other than low dose beta hi, giving low dose IV metoprolol. BP stable and not elevated. (4) CAD (coronary artery disease): Status: Chronic Assessment and plan: remote and no active symptoms, resume ASA and statin when taking PO fluids. Avoid complete beta-hi withdrawal as above. Subjective Subjective Patient reports: pain is less, voiding w/o difficulty and flatus; denies bowel movement, vomiting or shortness of breath Interval history since last seen: Feels a little better this morning, abdomen less distended. Mild discomfort around the umbilicus. NGT is uncomfortable. no chest pain. Exam Narrative Exam Narrative: HEENT NGT in place. neck supple, w/o JVD; lungs clear except slight rale left base; heart RRR no murmurs; abdomen moderately distended with mild periumbilical tenderness, few high pitched bowel sounds; extremities w/o edema; neuro Ox3, lucid. Objective Last Vital Signs Temp 37 C 08/12/23 21:50 Pulse 64 08/13/23 08:34 Resp 14 08/13/23 03:10 BP 118/67 08/13/23 08:34 Pulse Ox 95 08/13/23 03:10 Laboratory Results - last 24 hr 08/12/23 08/12/23 08/12/23 17:32 21:00 21:16 WBC 11.87 H RBC 4.81 Hgb 14.8 Hct 44.3 MCV 92 MCH 30.8 MCHC 33.4 RDW 12.4 Plt Count 249 MPV 9.4 Immature Gran % 0.3 Neutrophils % 74.4 Lymphocytes % 12.9 Monocytes % 11.7 Eosinophils % 0.5 Basophils % 0.2 Nucleated RBC % 0.0 Absolute Neutrophils 8.83 H Absolute Lymphocytes 1.53 Absolute Monocytes 1.39 H Absolute Eosinophils 0.06 Absolute Basophils 0.02 Sodium 134 L Potassium 5.4 H Chloride 96 L Carbon Dioxide 29.5 Anion Gap 8.5 BUN 45 H Creatinine 2.5 H Est GFR (CKD-EPI 2020) 25.82 Glucose 114 H Calcium 9.3 Magnesium 2.4 Total Bilirubin 1.9 H AST 19 ALT 29 Alkaline Phosphatase 87 Troponin I < 50 Cancelled < 50 NT-Pro-B Natriuret Pep 164 Total Protein 7.9 Albumin 4.3 Lipase 29 Urine Color Urine Clarity Urine pH Ur Specific [place] Urine Protein Urine Ketones Urine Blood Urine Nitrite Urine Bilirubin Urine Urobilinogen Ur Leukocyte Esterase Urine Glucose 08/13/23 08/13/23 02:38 06:03 WBC RBC Hgb Hct MCV MCH MCHC RDW Plt Count MPV Immature Gran % Neutrophils % Lymphocytes % Monocytes % Eosinophils % Basophils % Nucleated RBC % Absolute Neutrophils Absolute Lymphocytes Absolute Monocytes Absolute Eosinophils Absolute Basophils Sodium 136 Potassium 3.9 D Chloride 101 Carbon Dioxide 24.3 Anion Gap 10.7 BUN 45 H Creatinine 2.1 H Est GFR (CKD-EPI 2020) 31.82 Glucose 107 H Calcium 7.9 L Magnesium 2.4 Total Bilirubin AST ALT Alkaline Phosphatase Troponin I NT-Pro-B Natriuret Pep Total Protein Albumin Lipase Urine Color Yellow Urine Clarity Sl Cloudy Urine pH 5.0 Ur Specific [place] 1.020 Urine Protein Trace Urine Ketones 15 H Urine Blood Negative Urine Nitrite Negative Urine Bilirubin Small H Urine Urobilinogen 0.2 Ur Leukocyte Esterase Negative Urine Glucose Negative PAWSS Have you Been Recently Intoxicated or Drunk Within the Last 30 days?: No Have you Ever Experienced Previous Episodes of Alcohol Withdrawal?: No Have you ever Experienced Withdrawal Seizures?: No Have you ever Experienced Delirium Tremens(DT)s?: No Have you ever undergone Alcohol Rehabilitation Treatment (i.e, inpt ot outpatient treatment programs)?: No Have you ever Experienced Blackouts?: No Have you ever Combined Alcohol with other Downers within the last 90 days?: No Have you ever Combined Alcohol with any other Substance of Abuse during the last 90 days?: No Positive Blood Alcohol level on Presentation? [PCS.BAL]: No Evidence of Increased Autonomic Activity (i.e. HR>120, tremor, sweating, agitation, nausea)?: No Result: 0 Time Spent with Patient Time Spent with Patient: 35-49 minutes Time was spent: preparing to see the patient(eg.review tests), obtaining and/or reviewing separately otained hiistory, ordering medications,tests, procedures, referring, communicating with other health healthcare risk control consultant, indepentently interpreting results and counseling the patient
--- NOTE | 2023-08-13 09:47 | PDOC.CMIN ---
Date of service: 08/13/23 Time of Service: 09:47 Care Management Initial Assmt Initial Assessment REASON FOR HOSPITALIZATION:: SBO PREVIOUS FUNCTIONAL STATUS/SOCIAL/FAMILY SUPPORTS:: Juan Carlos lives in a single family home in [place] with his Johnna. They have 3 children but none of them are local. They have a son in [place], another son in [place] and a daughters who splits her time between [place], [place] and staying with them in [place]. They also have 6 grandchildren. 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 CURRENT FUNCTIONAL STATUS:: Juan Carlos was sitting up in a chair when CM met with him. He was admitted with a SBO and is in the ICU as a Med-Surg overflow patient. Juan Carlos has an NG tube and this morning it began to have bloody drainage. Dr. Dong was notified by the nurse and has ordered Protonix and additional imaging. Juan Carlos's vital signs are stable and he stated that he feels better than he did yesterday. ADVANCE DIRECTIVES:: On file. Johnna BASURTO Has patient been provided with info about the portal/API?: Yes Did the patient sign up for the portal?: Yes CODE STATUS:: Full Code INSURANCE COVERAGE / FINANCIAL ISSUES:: / Medicare Advantage CURRENT HOME/COMMUNITY SERVICES/EQUIPMENT:: none PRIMARY CARE PHYSICIAN:: Vandana Valladares POTENTIAL DISCHARGE NEEDS:: Follow up with PCP, surgeon and plan of care PATIENT/FAMILY EDUCATION NEEDS:: Review discharge instructions, diet, medications, limitations, follow up plan, discuss Ask Me Three TRANSPORTATION:: via private vehicle PLAN:: Anticipate Juan Carlos will be discharged home with no new services. He will follow up with his surgeon and plan of care and transport with family. CM will continue to support Juan Carlos and his discharge planning needs. PFSH All Active Problems (Updated 08/12/23 @ 21:58 by NISHANT THAKKAR) Diverticula of colon (Acute) Bilat ing hernia (Acute) DJD (degenerative joint disease), lumbar (Acute) Hypertension (Chronic) CAD (coronary artery disease) (Chronic) Vomiting (Acute) SBO (small bowel obstruction) (Acute) JOHN (acute kidney injury) (Acute) Small bowel obstruction (Acute) Cerumen debris on tympanic membrane of right ear (Acute) Abnormal skin growth (Acute) History of skin cancer (Acute) Nasal vestibulitis (Acute) Lumbar spinal stenosis (Acute) History of melanoma (Acute) Malignant basal cell neoplasm of skin (Acute) Actinic keratoses (Acute) Sun-damaged skin (Acute) Neoplasm of unspecified behavior of bone, soft tissue, and skin (Acute) Malignant melanoma of left shoulder (Chronic) Hair abnormality (Acute) Abscess of back (Acute) S/P chest tube placement (Acute ~05/16/18) Traumatic hemopneumothorax, initial encounter (Acute) Fracture of five ribs of right side (Acute) Fall from slipping on ice (Acute) Medical History (Updated 08/12/23 @ 21:58 by NISHANT THAKKAR) Subcutaneous emphysema due to trauma Hearing loss, bilateral Alcohol consumption binge drinking Allergic rhinitis Meralgia paresthetica Rosacea Obesity Erectile dysfunction History of adenomatous polyp of colon Prediabetes Hyperlipidemia Basal cell carcinoma Angina pectoris Surgical History H/O shoulder surgery History of excision of lesion S/P cataract surgery (12/01/17) Repair of umbilical hernia Coronary Stent Colonoscopy - IV Sedation (11/13/15) Dr Johnson, repeat 10 yrs Family History Other Cancer Heart disease Substance use disorder Social History Smoking/Tobacco Use Status: Never Smoking risk assessment performed?: Yes Alcohol Intake: current Alcohol Intake frequency: a few times a month Drug use: Never Household members: spouse Housing: house Pets and animals: Yes Pets and animals: dog(s) What is your relationship status?: Panel score (0-1 are the most socially isolated patients): 1 Do you feel safe in your relationship?: Yes SDOH(Care Management) Screening Will the Patient Participate in the Screening?: Yes Do you worry about having a steady place to live?: no Problems where you live: no known problems In the past 12 months, have you had to go without electric, gas, oil or water in your home?: no Have you or anyone in your house had to go without enough food to eat?: no Has lack of transportation kept you from medical appointments or from doing things needed for daily living?: no Has anyone in your support network made you feel unsafe for any reason?: no
[2023-08-13] MEDS: DEXTROSE 5%-0.45% SALINE 1,000 ML 75 ML IV (13:00)
[2023-08-13] MEDS: Gastrografin 120 ML BTL PO (14:39)
[2023-08-13] MEDS: Pantoprazole 40 MG VIAL IVP (15:46)
--- NOTE | 2023-08-13 20:00 | DI.RAD_ITS ---
Exam(s) XR ABDOMEN FLAT PLATE EXAM: 2D digital imaging was performed. CLINICAL HISTORY: Bowel obstruction. COMPARISON: CR XR ABDOMEN FLAT PLATE from 08/13/2023 TECHNIQUE: Supine views of the abdomen was performed. Three images were obtained. FINDINGS: LUNG BASES: Clear. BOWEL GAS PATTERN: The tip of the enteric tube is seen in the stomach. The side hole is at the gastr oesophageal junction. Oral contrast was administered. The contrast is seen in mildly dilated loops of proximal small bowel. There is no contrast seen in the colon at this time. There are dilated loo ps of small bowel with a similar appearance compared to the prior examination which was earlier in . FREE AIR: None. CALCIFICATIONS: No radiopaque calcifications. OSSEOUS STRUCTURES: Normal for age. Old right rib fractures are present. OTHER FINDINGS: None. IMPRESSION: 1. Dilated loop of small bowel persists which can be seen with an ileus or small-bowel obstruction. 2. The oral contrast remains in the small bowel. It is not yet passed into the stomach colon. DATA REPOSITORY: RADIATION DOSE DELIVERED:
[2023-08-13] MEDS: Enoxaparin 40 MG/0.4 ML SYR SC (21:20)
--- NOTE | 2023-08-13 21:42 | DI.VRAD_ITS ---
PROCEDURE INFORMATION: Exam: XR Abdomen Exam date and time: 08/13/2023 8:05 PM Age: 77 years old Clinical indication: Other: Gastrografin challenge, bowel obstruction TECHNIQUE: Imaging protocol: Radiologic exam of the abdomen. Views: Frontal supine view of the abdomen. 1 View. COMPARISON: CR XR ABDOMEN FLAT PLATE 08/13/2023 9:37 AM FINDINGS: Tubes, catheters and devices: Esophagogastric tube appears stable in position with the tip and side port proximal stomach. Gastrointestinal tract: Several moderately dilated gas-filled loops of small bowel noted throughout the abdomen. Enteric contrast is noted in the distal small bowel throughout the lower abdomen. Contrast has not yet entered the colon. Bones/joints: Unremarkable. IMPRESSION: Persistent abnormal small bowel-gas pattern with contrast noted in the distal small bowel but not yet in the colon. Dictated and Authenticated by: Otto Dowell MD. Ordering:MAU Kessler MD
[2023-08-14] VITALS (9 sets, daily range): BP systolic 116–144; BP diastolic 76–89; PULSE 75–87; RESP 15–19; TEMP 36.4–37.2; O2SAT 93–97
[2023-08-14] MEDS: Metoprolol 5 MG/5 ML VIAL 2.5 MG IVP ×3 (02:27→13:52)
[2023-08-14] MEDS: Normal Saline Flush 10 ML SYR IVP ×3 (02:27→20:14)
[2023-08-14] MEDS: ACETAMINOPHEN 1,000 MG/100 ML BTL 400 MG IVPB ×2 (06:00→13:51)
[2023-08-14 09:33] LABS: Anion Gap 9.8 mmol/L (3-11); BUN 31 mg/dL (7-18); CO2 26.2 mmol/L (21.0-32.0); CREATININE 1.3 mg/dL (0.70-1.30); Calcium 8.7 mg/dL (8.5-10.1); Chloride 103 mmol/L (98-107); Estimated GFR 56.58 (mL/min/1.73m2); Glucose 104 mg/dL (74-106); Potassium 4.2 mmol/L (3.5-5.1); Sodium 139 mmol/L (136-145)
[2023-08-14] MEDS: FAMOTIDINE 20 MG in Normal Saline 100 ML 400 MG IVPB (09:38)
[2023-08-14] MEDS: DULoxetine 30 MG CAP PO (09:38)
[2023-08-14 11:09] LABS: Magnesium 2.3 mg/dL (1.8-2.4)
[2023-08-14 11:12] LABS: HCT 40.3 % (40.0-50.0); HGB 13.2 g/dL (13.5-17.5); MCH 30.7 pg (27.0-33.0); MCHC 32.8 % (32.0-36.0); MCV 94 fL (80-95); MPV 9.4 fL (8.0-11.0); Platelet Count 224 10^3/uL (130-400); RDW 12.6 % (11.8-14.1); RDW-SD 43.6 fL; WBC 6.81 10^3/uL (4.4-10.8)
--- NOTE | 2023-08-14 12:02 | CMPROGNOTE_ITS ---
Date of service: 08/14/23 Time of Service: 12:02 Care Management Progress Note Progress Note Text Progress Note Text: S/O:Juan Carlos was sitting up in a chair when CM met with him. His NG tube had been removed and he stated that he felt much improved. His pain is better and he has much less abdominal distention. Juan Carlos informed CM that he will be given a diet for dinner and, if he tolerates food and fluids, he can likely be discharged home tomorrow. He verbalized that he does not feel he will need any new services at home upon discharge. A: Juan Carlos is a 77 year old man admitted to [facility] on 08/12/23 with a SBO P:Anticipate Juan Carlos will be discharged home with no new services. He will follow up with his surgeon and plan of care and transport with family. CM will continue to support Juan Carlos and his discharge planning needs. SDOH(Care Management) Screening Will the Patient Participate in the Screening?: Yes Do you worry about having a steady place to live?: no Problems where you live: no known problems In the past 12 months, have you had to go without electric, gas, oil or water in your home?: no Have you or anyone in your house had to go without enough food to eat?: no Has lack of transportation kept you from medical appointments or from doing things needed for daily living?: no Has anyone in your support network made you feel unsafe for any reason?: no
--- NOTE | 2023-08-14 12:21 | DI.RAD_ITS ---
Exam(s) XR ABDOMEN FLAT PLATE EXAM: 2D digital imaging was performed. CLINICAL HISTORY: SBO. COMPARISON: CR,XR XR ABDOMEN FLAT PLATE from 08/13/2023 TECHNIQUE: Supine views of the abdomen performed. FINDINGS: BOWEL GAS PATTERN: Small bowel loops are again dilated, some improvement from prior. The administere d oral contrast is now seen in the colon, cecum through distal descending. The appendix is opacified . OSSEOUS STRUCTURES: Degenerative changes in the spine. OTHER FINDINGS: An NG tube is in the stomach. IMPRESSION: 1. Administered oral contrast is seen within the colon. Mild improvement in small bowel dilatation. DATA REPOSITORY: RADIATION DOSE DELIVERED:
--- NOTE | 2023-08-14 12:44 | W.PM.PROGNOT ---
Date of Service Date of service: 08/14/23 Time of Service: 12:44 Assessment and Plan Assessment and plan (1) Small bowel obstruction: Status: Acute Assessment and plan: Taco seems to be doing pretty well with nonoperative management of his bowel obstruction. The fact that he had a bowel movement is quite reassuring, and all of his labs have normalized. His NG tube is still a little bit higher than I would expect, but I think it is reasonable to do another flatplate, and see if that contrast is mated into the colon yet. If that is the case, then we will go ahead and pull the nasogastric tube. I think it is also fine to remove the Mujica catheter today given his acute kidney injury seems to be resolved. Subjective Subjective Interval history since last seen: Taco looks very good, he is up into the chair, and he tells me had a bowel movement this morning. He denies any nausea or hiccups. Flatplate last night shows contrast in the distal small bowel, but it had not yet reached the colon. Exam GI Other: His abdomen is certainly softer than yesterday, but he does still remain a little bit distended. He is not at all tender. Objective Last Vital Signs Temp 97.5 F L 08/14/23 07:52 Pulse 75 08/14/23 10:20 Resp 15 08/14/23 07:52 BP 129/83 08/14/23 10:20 Pulse Ox 95 08/14/23 10:20 Laboratory Results - last 24 hr 08/14/23 06:33 WBC 6.81 RBC 4.30 L Hgb 13.2 L Hct 40.3 MCV 94 MCH 30.7 MCHC 32.8 RDW 12.6 Plt Count 224 MPV 9.4 Sodium 139 Potassium 4.2 Chloride 103 Carbon Dioxide 26.2 Anion Gap 9.8 BUN 31 H Creatinine 1.3 Est GFR (CKD-EPI 2020) 56.58 Glucose 104 Calcium 8.7 Magnesium 2.3 PAWSS Have you Been Recently Intoxicated or Drunk Within the Last 30 days?: No Have you Ever Experienced Previous Episodes of Alcohol Withdrawal?: No Have you ever Experienced Withdrawal Seizures?: No Have you ever Experienced Delirium Tremens(DT)s?: No Have you ever undergone Alcohol Rehabilitation Treatment (i.e, inpt ot outpatient treatment programs)?: No Have you ever Experienced Blackouts?: No Have you ever Combined Alcohol with other Downers within the last 90 days?: No Have you ever Combined Alcohol with any other Substance of Abuse during the last 90 days?: No Positive Blood Alcohol level on Presentation? [PCS.BAL]: No Evidence of Increased Autonomic Activity (i.e. HR>120, tremor, sweating, agitation, nausea)?: No Result: 0 Time Spent with Patient Time Spent with Patient: 25-34 minutes Time was spent: preparing to see the patient(eg.review tests), ordering medications,tests, procedures, indepentently interpreting results and counseling the patient
--- NOTE | 2023-08-14 15:31 | CHAPLAIN ---
Juan Carlos was sitting up in a chair, visiting with his Johnna when I stopped in. He has an NG tube, and explained what makes it uncomfortable. He's waiting to hear back from DI about imaging to see if the NG tube can be removed. I explained my role and offered support. I will continue to visit.
[2023-08-14] MEDS: Enoxaparin 40 MG/0.4 ML SYR SC (19:52)
[2023-08-15 07:05] LABS: Anion Gap 8.3 mmol/L (3-11); BUN 21 mg/dL (7-18); CO2 27.7 mmol/L (21.0-32.0); CREATININE 1.1 mg/dL (0.70-1.30); Calcium 8.9 mg/dL (8.5-10.1); Chloride 104 mmol/L (98-107); Estimated GFR 69.14 (mL/min/1.73m2); Glucose 91 mg/dL (74-106); Potassium 4.3 mmol/L (3.5-5.1); Sodium 140 mmol/L (136-145)
[2023-08-15 07:23] VITALS: BP 145/92; PULSE 82; RESP 16; TEMP 36.4; O2SAT 92
--- NOTE | 2023-08-15 07:32 | PGE_ITS ---
Date of Service Date of service: 08/15/23 Time of Service: 07:32 Assessment and Plan Assessment and plan (1) Hypertension: Status: Chronic (2) CAD (coronary artery disease): Status: Chronic (3) SBO (small bowel obstruction): Status: Acute (4) Diverticula of colon: Status: Acute (5) JOHN (acute kidney injury): Status: Acute (6) Malignant melanoma of left shoulder: Status: Chronic (7) Prediabetes: (8) Hyperlipidemia: (9) Calculus of bile duct with acute on chronic cholecystitis without obstruction: Status: Acute (10) Gallstone ileus of small intestine: Status: Acute Assessment and plan: Postop day 3 exploratory laparotomy for gallstone ileus and extraction of gallstone from the jejunum. Patient is tolerating a regular diet. He is up and walking. Transition to oral pain control PCOS on wound No fever or white count. JOHN has resolved Hypokalemia has resolved Patient is on Invanz day #3 Continue to walk Advance diet to soft (11) Status post exploratory laparotomy: Status: Acute Subjective Subjective Interval history since last seen: Pt is doing well. no headaches. No CP or SOB. no productive cough. no dysuria. no leg pain or swelling. Patient is tolerating full liquid diet. He has had multiple bowel movements with no bleeding. He was up walking yesterday and overall is feeling much better. He is not having any fever or chills. We discussed the findings at surgery. Exam Narrative Exam Narrative: PHYSICAL EXAM GENERAL APPEARANCE: Alert, healthy appearance, oriented, x 3,? in no acute distress HYDRATION: Well hydrated HEAD, EYES, EARS, NECK, THROAT: Head is normocephalic, pupils equal, round, reactive to light and accommodation, ocular movement intact, sclera clear and no jaundice. ?Dentition intact. LUNGS: normal respiration/normal chest excursion. ?Clear to auscultation bilat erally. ? ?HEART: Regular rate and rhythm. no murmurs EXTREMITY: No edema or cyanosis.? no leg pain, redness, swelling.? ABDOMEN: soft and non-tender to palpation.? Normal bowel sounds.? PCOS in place with a small amount of strikethrough Objective Last Vital Signs Temp 36.4 C L 08/15/23 07:23 Pulse 82 08/15/23 07:23 Resp 16 08/15/23 07:23 BP 145/92 H 08/15/23 07:23 Pulse Ox 92 08/15/23 07:23 Laboratory Results - last 24 hr 08/14/23 08/15/23 06:33 05:48 WBC 6.81 RBC 4.30 L Hgb 13.2 L Hct 40.3 MCV 94 MCH 30.7 MCHC 32.8 RDW 12.6 Plt Count 224 MPV 9.4 Sodium 139 140 Potassium 4.2 4.3 Chloride 103 104 Carbon Dioxide 26.2 27.7 Anion Gap 9.8 8.3 BUN 31 H 21 H Creatinine 1.3 1.1 Est GFR (CKD-EPI 2020) 56.58 69.14 Glucose 104 91 Calcium 8.7 8.9 Magnesium 2.3 PAWSS Have you Been Recently Intoxicated or Drunk Within the Last 30 days?: No Have you Ever Experienced Previous Episodes of Alcohol Withdrawal?: No Have you ever Experienced Withdrawal Seizures?: No Have you ever Experienced Delirium Tremens(DT)s?: No Have you ever undergone Alcohol Rehabilitation Treatment (i.e, inpt ot outpatient treatment programs)?: No Have you ever Experienced Blackouts?: No Have you ever Combined Alcohol with other Downers within the last 90 days?: No Have you ever Combined Alcohol with any other Substance of Abuse during the last 90 days?: No Positive Blood Alcohol level on Presentation? [PCS.BAL]: No Evidence of Increased Autonomic Activity (i.e. HR>120, tremor, sweating, agitation, nausea)?: No Result: 0 Time Spent with Patient Time Spent with Patient: <25 minutes Time was spent: preparing to see the patient(eg.review tests), obtaining and/or reviewing separately otained hiistory, ordering medications,tests, procedures, referring, communicating with other health intensive care anaesthetist, indepentently interpreting results, counseling the patient and care coordination
--- NOTE | 2023-08-15 08:13 | PDOC.CMPRO ---
Date of service: 08/15/23 Time of Service: 08:14 Care Management Progress Note Progress Note Text Progress Note Text: S/O: A:Juan Carlos is a 77 year old man admitted on 08/12/23 with a SBO P: Antcipate Juan Carlos will be discharged home with no new services. He will follow up with his surgeon and plan of care and transport with family. CM will continue to support Juan Carlos and his discharge planning needs. SDOH(Care Management) Screening Will the Patient Participate in the Screening?: Yes Do you worry about having a steady place to live?: no Problems where you live: no known problems In the past 12 months, have you had to go without electric, gas, oil or water in your home?: no Have you or anyone in your house had to go without enough food to eat?: no Has lack of transportation kept you from medical appointments or from doing things needed for daily living?: no Has anyone in your support network made you feel unsafe for any reason?: no
[2023-08-15] MEDS: dilTIAZem CD 120 MG CAPCR 240 MG PO (08:21)
[2023-08-15] MEDS: Losartan 50 MG TAB 100 MG PO (08:21)
[2023-08-15] MEDS: Metoprolol CR 50 MG TABCR PO (08:21)
[2023-08-15] MEDS: DULoxetine 30 MG CAP PO (08:21)
[2023-08-15] MEDS: Normal Saline Flush 10 ML SYR IVP (08:22)
--- NOTE | 2023-08-15 10:37 | PGE_ITS ---
Date of Service Date of service: 08/15/23 Time of Service: 10:37 Assessment and Plan Assessment and plan (1) Small bowel obstruction: Status: Acute Assessment and plan: SBO: management per Surgery, appears to be on his way today tolerating a regular diet. Continue I.S. this morning for atelectasis Possibly home today. See med recommendations below, we will sign off either way. (2) JOHN (acute kidney injury): Status: Acute Assessment and plan: Resolved, hyperkalemia normalized even back on ARB. (3) Hypertension: Status: Chronic Assessment and plan: BP good back on oral metoprolol and losartan. Can resume HCTZ today (or upon discharge) (4) CAD (coronary artery disease): Status: Chronic Assessment and plan: remote and no active symptoms, resume ASA and statin today or upon discharge. Subjective Subjective Patient reports: no new complaints; denies shortness of breath or fever Interval history since last seen: NGT out. He ate two breakfasts, liquid and regular including eggs. He denies abdominal pain, n/v. He had BM yesterday and feels like he could have another today. No chest pain. Exam Narrative Exam Narrative: HEENT MMM, no icterus. neck supple, w/o JVD; lungs clear except slight in r ight base that clears with deep inspiration. heart RRR no murmurs; abdomen soft, not tender or distended; extremities w/o edema; neuro Ox3, lucid. Objective Last Vital Signs Temp 36.4 C L 08/15/23 07:23 Pulse 82 08/15/23 07:23 Resp 16 08/15/23 07:23 BP 145/92 H 08/15/23 07:23 Pulse Ox 92 08/15/23 07:23 Laboratory Results - last 24 hr 08/14/23 08/15/23 06:33 05:48 WBC 6.81 RBC 4.30 L Hgb 13.2 L Hct 40.3 MCV 94 MCH 30.7 MCHC 32.8 RDW 12.6 Plt Count 224 MPV 9.4 Sodium 139 140 Potassium 4.2 4.3 Chloride 103 104 Carbon Dioxide 26.2 27.7 Anion Gap 9.8 8.3 BUN 31 H 21 H Creatinine 1.3 1.1 Est GFR (CKD-EPI 2020) 56.58 69.14 Glucose 104 91 Calcium 8.7 8.9 Magnesium 2.3 PAWSS Have you Been Recently Intoxicated or Drunk Within the Last 30 days?: No Have you Ever Experienced Previous Episodes of Alcohol Withdrawal?: No Have you ever Experienced Withdrawal Seizures?: No Have you ever Experienced Delirium Tremens(DT)s?: No Have you ever undergone Alcohol Rehabilitation Treatment (i.e, inpt ot outpatient treatment programs)?: No Have you ever Experienced Blackouts?: No Have you ever Combined Alcohol with other Downers within the last 90 days?: No Have you ever Combined Alcohol with any other Substance of Abuse during the last 90 days?: No Positive Blood Alcohol level on Presentation? [PCS.BAL]: No Evidence of Increased Autonomic Activity (i.e. HR>120, tremor, sweating, agitation, nausea)?: No Result: 0 Time Spent with Patient Time Spent with Patient: 25-34 minutes Time was spent: preparing to see the patient(eg.review tests), obtaining and/or reviewing separately otained hiistory, ordering medications,tests, procedures, referring, communicating with other health home child care provider, indepentently interpreting results and counseling the patient
--- NOTE | 2023-08-15 11:14 | NS.NUTBLAN_ITS ---
Date of service: 08/15/23 Time of Service: 10:40 Nutritional Consult ASSESSMENT: Received nutrition consult regarding education to patient on low fiber diet and transitioning to high fiber diet. Pt reports GI symptoms started after he and his were doing an annual cleanse they do every year. I educated that cleanse is not necessary and with healthy diet and exercise the body will do a fine job by itself. Pt reports good toleration of breakfast this morning of lower fiber, soft foods like applesauce and eggs. Patient has been moving bowels - denies nausea. Gave pt education low low fiber diet (8-10g/day) with supportive handout we reviewed partly and will take home to go over with his (does the cooking and meal prep). Also followed up with higher fiber diet education and suggested ~2weeks on lower fiber diet, building fiber back in GRADUALLY (ie a few grams ex tra per week) and reviewed transitioning from soft refined grains to more intact whole grains, cooked/canned veggies to more firm and fibrous veggies, fruit like apples without skin to whole fruit again, etc... My card was given should he and his want to work more on this with me for menu planning - he said they will discuss and contact me if needed/desired. NUTRITIONAL DIAGNOSIS: Temporary altered GI function (now in resolution) related to gallstone ilieus of small intestine, as evidenced by his Dx and medical treatment for such. INTERVENTION: Provided education on low fiber to high fiber diet as above MONITORING AND EVALUATION: will be available to work closer with pt and on meal planning if they desire. Time Spent in Nutritional Counseling and Treatment: 10 minutes
--- NOTE | 2023-08-15 12:41 | CHAPLAIN ---
Juan Carlos was happy to show me that his NG tube was out this morning, he's having low fiber meals and may go home today. 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 He is connected to [facility] but hasn't attended recently. 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
--- NOTE | 2023-08-15 14:55 | W.PM.DS.N ---
Date of service: 08/15/23 Time of Service: 14:55 DS: Diagnosis Discharge Diagnosis (1) Small bowel obstruction: Status: Acute (2) JOHN (acute kidney injury): Status: Acute (3) Hypertension: Status: Chronic (4) CAD (coronary artery disease): Status: Chronic Discharge Plan Disposition Patient Disposition: Home Condition: Good Discharge Details Reason For Visit: SBO/JOHN Admit Date/Time: 08/12/23 21:00 Admit Provider: Verónica Waldron Attending Provider: Verónica Waldron Primary Care Provider: Vandana Valladares [facility] Course Hospital Course: 77 years old, came to the hospital with acute onset of abdominal pain associated with nausea and abdominal distention. He underwent a CT scan of the abdomen and pelvis demonstrated a partial small bowel obstruction, with transition point somewhere in the distal small bowel. He was admitted to the hospital, and nasogastric tube was inserted for gastric decompression. He was resuscitated with intravenous fluids because of acute kidney injury. Gastrografin was administered by way of the nasogastric tube, and serial abdominal x-rays were obtained. During the transit of Gastrografin, the patient did experience some bowel movements, and relief of his abdominal distention. Subsequent x-rays demonstrated passage of contrast into the colon, the patient's symptoms resolved. During the course of the resuscitation, his creatinine normalized. He was able to tolerate a regular diet, and discharged home. Home Meds and New Rx's Prescriptions: Continued duloxetine 30 mg capsule,delayed release(DR/EC) 30 mg PO DAILY metoprolol succinate 50 mg tablet extended release 24 hr 50 mg PO DAILY atorvastatin 40 MG tablet 40 mg PO DAILY aspirin [Aspir-81] 81 MG tablet,delayed release (DR/EC) 81 mg PO HS nitroglycerin [Nitrostat] 0.4 MG tablet, sublingual 0.4 mg Sublingual ONCE hydrochlorothiazide 12.5 mg tablet 12.5 mg PO DAILY acetaminophen [Tylenol Arthritis Pain] 650 mg tablet extended release 650 mg PO PRN losartan 50 mg tablet 100 mg PO DAILY diltiazem HCl 240 MG capsule,extended release 24hr 240 mg PO DAILY Discharge Instructions Instructions: Bowel Obstruction (DC) Additional Instructions: Taco, it was very nice to meet you in the hospital. I am glad that you have made a quick recovery from your bowel obstruction. Like we talked about while you are in the hospital, the most likely source of this was scar tissue from your previous surgeries. Generally, we try to avoid operating in these scenarios, and I am glad that has been the case for you. I do not think you need to follow any specific restrictions in the days to come. Most patients will have normal bowel function, and remain asymptomatic without any specific interventions. Obviously, there are some patients who have recurrent bowel obstructions. As I mentioned while you are here, it is quite difficult to predict you will fall into that category. If this continues to be a problem for you, there are always procedures that we can try to help solve the problem. I will have our office arrange a follow-up appointment for you sometime in the next few weeks. If you have any questions or issues in the meantime, please do not hesitate to call at any point. Activity:: Activity as Tolerated Equipment/Supplies:: No Equipment Needed Diet:: As Tolerated DS: Summary Time Spent with Patient providing and/or coordinating discharge services: Less than 30 minutes Status at Discharge Functional status at discharge: independent ambulation Overall status at discharge: patient is back to baseline Mental Status: mental status grossly normal Speech and Movement: speech and movement normal Mood: congruent mood Affect: normal affect Quality:SDOH Health Related Social Needs: No Data to Display Exam Psych Mental Status: mental status grossly normal Speech and Movement: speech and movement normal Mood: congruent mood Affect: normal affect DS: Data Vitals/I&O Vitals and I&O: Vital Signs Temperature 97.5 F L 08/15/23 07:23 Temperature Source Tympanic 08/15/23 07:23 Pulse 82 08/15/23 07:23 Pulse Rhythm Regular 08/15/23 08:33 Pulse 70 08/13/23 16:44 Respiratory Rate 16 08/15/23 07:23 Respiratory Effort Normal, Non-Labored 08/15/23 08:33 Respiratory Depth Normal 08/15/23 08:33 Respiratory Pattern Normal 08/15/23 08:33 Blood Pressure 145/92 H 08/15/23 07:23 Blood Pressure Mean 115 08/13/23 16:44 Blood Pressure Position Supine 08/12/23 21:50 Pulse Oximetry 92 08/15/23 07:23 Oxygen Delivery Method Room Air 08/15/23 07:23 Oxygen Flow Rate 0 08/15/23 07:23 Pain Level 0 08/15/23 08:33 Intake & Output 08/14/23 08/15/23 08/15/23 23:59 11:59 23:59 Intake Total 1202 / 1302 220 / 220 Output Total 850 / 1650 Balance 352 / -348 220 / 220 Intake: IV 1202 / 1302 Oral 220 / 220 Output: Gastric Drainage 200 / 1000 right nare 200 / 1000 Urine 650 / 650 Other: Urine Color Pale Yellow Yellow Urine Appearance Clear Clear Comment Pt voids in toilet without difficulty Stool Size Small Moderate Stool Characteristics Soft Soft Formed Formed Data Completed and Pending Labs on day of discharge: Labs from last 24 hours 08/15/23 05:48 Sodium 140 Potassium 4.3 Chloride 104 Carbon Dioxide 27.7 Anion Gap 8.3 BUN 21 H Creatinine 1.1 Est GFR (CKD-EPI 2020) 69.14 Glucose 91 Calcium 8.9 PFSH All Active Problems (Updated 08/15/23 @ 15:06 by Checo Dong MD) Status post exploratory laparotomy (Acute) Diverticula of colon (Acute) Bilat ing hernia (Acute) DJD (degenerative joint disease), lumbar (Acute) Hypertension (Chronic) CAD (coronary artery disease) (Chronic) Vomiting (Acute) SBO (small bowel obstruction) (Acute) JOHN (acute kidney injury) (Acute) Small bowel obstruction (Acute) Cerumen debris on tympanic membrane of right ear (Acute) Abnormal skin growth (Acute) History of skin cancer (Acute) Nasal vestibulitis (Acute) Lumbar spinal stenosis (Acute) History of melanoma (Acute) Malignant basal cell neoplasm of skin (Acute) Actinic keratoses (Acute) Sun-damaged skin (Acute) Neoplasm of unspecified behavior of bone, soft tissue, and skin (Acute) Malignant melanoma of left shoulder (Chronic) Hair abnormality (Acute) Abscess of back (Acute) S/P chest tube placement (Acute ~05/16/18) Fracture of five ribs of right side (Acute) Fall from slipping on ice (Acute) Medical History Traumatic hemopneumothorax, initial encounter Subcutaneous emphysema due to trauma Hearing loss, bilateral Alcohol consumption binge drinking Allergic rhinitis Meralgia paresthetica Rosacea Obesity Erectile dysfunction History of adenomatous polyp of colon Prediabetes Hyperlipidemia Basal cell carcinoma Angina pectoris Surgical History H/O shoulder surgery History of excision of lesion S/P cataract surgery (12/01/17) Repair of umbilical hernia Coronary Stent Colonoscopy - IV Sedation (11/13/15) Dr Johnson, repeat 10 yrs Family History Other Cancer Heart disease Substance use disorder Social History Smoking/Tobacco Use Status: Never Smoking risk assessment performed?: Yes Alcohol Intake: current Alcohol Intake frequency: a few times a month Drug use: Never Household members: spouse Housing: house Pets and animals: Yes Pets and animals: dog(s) What is your relationship status?: Panel score (0-1 are the most socially isolated patients): 1 Do you feel safe in your relationship?: Yes Time Spent with Patient Time Spent with Patient: <45 minutes Time was spent: referring, communicating with other health career coach and care coordination
--- NOTE | 2023-08-15 15:53 | PGE_ITS ---
Date of Service Date of service: 08/15/23 Time of Service: 07:15 Assessment and Plan Assessment and plan (1) Hypertension: Status: Chronic (2) CAD (coronary artery disease): Status: Chronic (3) Small bowel obstruction: Status: Deleted Assessment and plan: Resolved at this time. Will have him be on a soft diet for 3 to 4 days posthospitalization then transition to high-fiber diet. Patient would like consultation with dietitian regarding high-fiber diet. We will see how patient does today and if he tolerates his diet and has another bowel movement that we will plan on discharge home later on today. This document was created with voice activated software and may contain errors. 20 mins spent in direct pt care and 10 in non face to face time (4) Diverticula of colon: Status: Acute (5) History of melanoma: Status: Acute (6) SBO (small bowel obstruction): (7) JOHN (acute kidney injury): Subjective Subjective Interval history since last seen: Patient is doing well. He is tolerating a soft diet. He has been up walking around. He had a bowel movement yesterday. Pt is doing well. no headaches. No CP or SOB. no productive cough. no dysuria. no leg pain or swelling. Exam Const Other: PHYSICAL EXAM GENERAL APPEARANCE: Alert, healthy appearance, oriented, x 3,? in no acute distress LUNGS: normal respiration/normal chest excursion. ?Clear to auscultation bilaterally. ? ?HEART: Regular rate and rhythm. no murmurs? ABDOMEN: soft and non-tender to palpation.? Normal bowel sounds.? Objective Last Vital Signs Temp 36.4 C L 08/15/23 07:23 Pulse 82 08/15/23 07:23 Resp 16 08/15/23 07:23 BP 145/92 H 08/15/23 07:23 Pulse Ox 92 08/15/23 07:23 Laboratory Results - last 24 hr 08/15/23 05:48 Sodium 140 Potassium 4.3 Chloride 104 Carbon Dioxide 27.7 Anion Gap 8.3 BUN 21 H Creatinine 1.1 Est GFR (CKD-EPI 2020) 69.14 Glucose 91 Calcium 8.9 PAWSS Have you Been Recently Intoxicated or Drunk Within the Last 30 days?: No Have you Ever Experienced Previous Episodes of Alcohol Withdrawal?: No Have you ever Experienced Withdrawal Seizures?: No Have you ever Experienced Delirium Tremens(DT)s?: No Have you ever undergone Alcohol Rehabilitation Treatment (i.e, inpt ot outpatient treatment programs)?: No Have you ever Experienced Blackouts?: No Have you ever Combined Alcohol with other Downers within the last 90 days?: No Have you ever Combined Alcohol with any other Substance of Abuse during the last 90 days?: No Positive Blood Alcohol level on Presentation? [PCS.BAL]: No Evidence of Increased Autonomic Activity (i.e. HR>120, tremor, sweating, agitation, nausea)?: No Result: 0 Time Spent with Patient Time Spent with Patient: <25 minutes Time was spent: preparing to see the patient(eg.review tests), obtaining and/or reviewing separately otained hiistory, ordering medications,tests, procedures, referring, communicating with other health critical care physician assistant, indepentently interpreting results, counseling the patient and care coordination
--- NOTE | 2023-08-15 15:53 | CMDISCH_ITS ---
Date of service: 08/15/23 Time of Service: 15:53 LACE Index Scoring Tool Questions: Length of Stay (in days): 3 Was the patient admitted via the E.D.?: Yes Comorbidities: Any Tumor E.D. Visits: 1 Answers: Total Score: 9 Risk of Readmission: Low Risk Care Management Discharge Plan Reason for Hospitalization: SBO Discharge Plan: Juan Carlos will be discharged home with no new services. He will follow up with his surgeon and plan of care and transport with family. Patient/Family Education Needs: Review discharge instructions, diet, medications, limitations, follow up plan, discuss Ask Me [facility] Health Related Social Needs: No Data to Display
== END 2023-08-15 16:15 | disposition home or self-care (01) | DRG 389 ==
LOC: ER 21:43 → ICU 21:58 → MS 08-13 17:13
PROVIDERS: Surgery; Admitting Provider Surgery; Emergency Provider Emergency Medicine; PCP Family Medicine; Visit Provider Surgery
DX: K56.600 Partial intestinal obstruction, unspecified as to cause (principal); N17.9 Acute kidney failure, unspecified; R73.03 Prediabetes; E66.9 Obesity, unspecified; Z68.33 Body mass index [BMI] 33.0-33.9, adult; Z85.820 Personal history of malignant melanoma of skin; K40.20 Bilateral inguinal hernia, without obstruction or gangrene, not specified as recurrent; K57.30 Diverticulosis of large intestine without perforation or abscess without bleeding; I10 Essential (primary) hypertension; I25.10 Atherosclerotic heart disease of native coronary artery without angina pectoris; M47.816 Spondylosis without myelopathy or radiculopathy, lumbar region; Z95.5 Presence of coronary angioplasty implant and graft; R11.2 Nausea with vomiting, unspecified; E78.5 Hyperlipidemia, unspecified; H91.93 Unspecified hearing loss, bilateral
CPT/HCPCS: 00123; 36415; 71045; 80048; 80053; 83690; 85027; 93005; 96361; 96374; 99222; 99231; 99238; 99285; J1650; 74018; 74176; 81003; 83735; 83880; 84484; 85025; 93010; 99232; J0131; J2270; J2405; J2470

== ENCOUNTER → 2023-08-26 14:42 | Outpatient (BNVA) | payer MEDICARE, SELFPAY | PROVIDERS: PCP Family Medicine; Referring Provider Family Medicine; Visit Provider Surgery | DX: K56.690 Other partial intestinal obstruction (principal) | CPT/HCPCS: 99213 ==

== ENCOUNTER 2023-09-05 09:23 | Outpatient (RCR) | payer MEDICARE, SELFPAY | END 2023-09-05 23:59 | disposition home or self-care (01) | LOC: CR 09:23 | PROVIDERS: PCP Family Medicine; Referring Provider Student in an Organized Health Care Education/Training Program; Visit Provider Internal Medicine Cardiovascular Disease | DX: I25.10 Atherosclerotic heart disease of native coronary artery without angina pectoris (principal); Z95.5 Presence of coronary angioplasty implant and graft; Z51.89 Encounter for other specified aftercare | CPT/HCPCS: S9472 ==

== ENCOUNTER 2023-09-26 09:17 | Outpatient (RCR) | payer MEDICARE, SELFPAY | END 2023-10-05 23:59 | disposition home or self-care (01) | LOC: CR 09:17 | PROVIDERS: PCP Family Medicine; Referring Provider Student in an Organized Health Care Education/Training Program; Visit Provider Internal Medicine Cardiovascular Disease | DX: I25.10 Atherosclerotic heart disease of native coronary artery without angina pectoris (principal) | CPT/HCPCS: S9472 ==

== ENCOUNTER 2023-10-15 09:00 | Outpatient (RCR) | payer MEDICARE, SELFPAY | END 2023-11-05 23:59 | disposition home or self-care (01) | LOC: CR 09:00 | PROVIDERS: PCP Family Medicine; Visit Provider Internal Medicine Cardiovascular Disease | DX: I25.10 Atherosclerotic heart disease of native coronary artery without angina pectoris (principal) | CPT/HCPCS: S9472 ==

== ENCOUNTER 2023-12-02 08:11 | Outpatient (RCR) | payer SELFPAY ==
[2023-11-06 00:24] VITALS: BP 142/85; PULSE 70
[2023-11-11 08:17] VITALS: BP 157/82; PULSE 73
[2023-11-13 10:17] VITALS: BP 160/82; PULSE 68
[2023-11-18 08:22] VITALS: BP 153/84; PULSE 65
[2023-11-20 08:04] VITALS: BP 163/81; PULSE 66
[2023-11-25 08:47] VITALS: BP 168/90; PULSE 71
[2023-11-27 08:17] VITALS: BP 146/85; PULSE 68
[2023-12-02 08:12] VITALS: BP 153/83; PULSE 64
== END 2023-12-06 23:59 | disposition home or self-care (01) ==
LOC: CR 08:11
PROVIDERS: PCP Family Medicine; Visit Provider Internal Medicine Cardiovascular Disease
DX: R69 Illness, unspecified (principal)

== ENCOUNTER 2024-01-01 08:08 | Outpatient (RCR) | payer SELFPAY ==
[2023-12-07 00:10] VITALS: BP 142/85; PULSE 70
[2023-12-16 08:31] VITALS: BP 182/90; PULSE 79
[2023-12-18 09:18] VITALS: BP 156/87; PULSE 69
[2023-12-23 08:15] VITALS: BP 156/83; PULSE 66
[2023-12-25 09:10] VITALS: BP 132/76; PULSE 81
[2023-12-30 08:21] VITALS: BP 152/86; PULSE 76
[2024-01-01 08:21] VITALS: BP 147/76; PULSE 77
== END 2024-01-05 23:59 | disposition home or self-care (01) ==
LOC: CR 08:08
PROVIDERS: PCP Family Medicine; Visit Provider Internal Medicine Cardiovascular Disease
DX: R69 Illness, unspecified (principal)

== ENCOUNTER 2024-02-05 08:42 | Outpatient (RCR) | payer SELFPAY ==
[2024-01-06 00:08] VITALS: BP 142/85; PULSE 70
[2024-01-06 08:00] VITALS: BP 164/82; PULSE 82
[2024-01-08 08:05] VITALS: BP 166/85; PULSE 67; O2SAT 97
[2024-01-13 08:28] VITALS: BP 155/87; PULSE 67
[2024-01-15 09:30] VITALS: BP 178/79; PULSE 71
[2024-01-20 09:07] VITALS: BP 148/84; PULSE 66
[2024-01-22 08:18] VITALS: BP 137/78; PULSE 66; O2SAT 97
[2024-01-27 08:23] VITALS: BP 184/87; PULSE 64
[2024-01-29 08:02] VITALS: BP 155/82; PULSE 70; O2SAT 96
[2024-02-03 08:56] VITALS: BP 160/81; PULSE 70
== END 2024-02-05 23:59 | disposition home or self-care (01) ==
LOC: CR 08:42
PROVIDERS: PCP Family Medicine; Visit Provider Internal Medicine Cardiovascular Disease
DX: R69 Illness, unspecified (principal)

== ENCOUNTER 2024-02-26 08:00 | Outpatient (RCR) | payer SELFPAY ==
[2024-02-06 00:27] VITALS: BP 142/85; PULSE 70
[2024-02-10 08:18] VITALS: BP 140/76; PULSE 79
[2024-02-12 08:15] VITALS: BP 167/87; PULSE 73
[2024-02-17 08:04] VITALS: BP 161/89; PULSE 71
[2024-02-19 09:05] VITALS: BP 137/84; PULSE 72
[2024-02-24 08:41] VITALS: BP 149/84; PULSE 70
[2024-02-26 08:05] VITALS: BP 152/85; PULSE 73; O2SAT 97
== END 2024-03-06 23:59 | disposition home or self-care (01) ==
LOC: CR 08:00
PROVIDERS: PCP Family Medicine; Visit Provider Internal Medicine Cardiovascular Disease
DX: R69 Illness, unspecified (principal)

== ENCOUNTER 2024-03-25 08:03 | Outpatient (RCR) | payer SELFPAY ==
[2024-03-07 00:11] VITALS: BP 142/85; PULSE 70
[2024-03-09 08:17] VITALS: BP 187/85; PULSE 77
[2024-03-09 08:18] VITALS: BP 147/82
[2024-03-11 08:09] VITALS: BP 170/86; PULSE 75
[2024-03-16 08:18] VITALS: BP 176/78; PULSE 70
[2024-03-18 12:24] VITALS: BP 151/86; PULSE 69
[2024-03-23 08:02] VITALS: BP 156/86; PULSE 69
[2024-03-25 08:04] VITALS: BP 160/81; PULSE 59
== END 2024-04-06 23:59 | disposition home or self-care (01) ==
LOC: CR 08:03
PROVIDERS: PCP Family Medicine; Visit Provider Internal Medicine Cardiovascular Disease
DX: R69 Illness, unspecified (principal)

== ENCOUNTER 2024-08-03 08:19 | Outpatient (RCR) | payer SELFPAY ==
[2024-04-07 00:08] VITALS: BP 142/85; PULSE 70
[2024-07-06 08:32] VITALS: BP 145/86; PULSE 66
[2024-07-08 08:08] VITALS: BP 162/81; PULSE 63; O2SAT 98
[2024-07-13 08:21] VITALS: BP 148/80; PULSE 60
[2024-07-15 08:09] VITALS: BP 139/82; PULSE 57; O2SAT 97
[2024-07-20 08:46] VITALS: BP 155/85; PULSE 62
[2024-07-22 08:16] VITALS: BP 141/84; PULSE 65
[2024-07-27 09:11] VITALS: BP 137/80; PULSE 64
[2024-07-29 08:25] VITALS: BP 140/79; PULSE 64
[2024-08-03 08:23] VITALS: BP 164/91; PULSE 56
== END 2024-08-04 23:59 | disposition home or self-care (01) ==
LOC: CR 08:19
PROVIDERS: PCP Family Medicine; Visit Provider Internal Medicine Cardiovascular Disease
DX: R69 Illness, unspecified (principal)

== ENCOUNTER 2024-09-02 08:14 | Outpatient (RCR) | payer SELFPAY ==
[2024-08-05 00:12] VITALS: BP 142/85; PULSE 70
[2024-08-05 08:46] VITALS: BP 161/84; PULSE 62
[2024-08-10 08:22] VITALS: BP 161/77; PULSE 60
[2024-08-17 08:17] VITALS: BP 163/84; PULSE 62
[2024-08-19 08:16] VITALS: BP 153/82; PULSE 58
[2024-08-24 08:17] VITALS: BP 128/75; PULSE 68
[2024-08-26 08:18] VITALS: BP 150/82; PULSE 62
[2024-09-02 09:35] VITALS: BP 156/81; PULSE 68
== END 2024-09-04 23:59 | disposition home or self-care (01) ==
LOC: CR 08:14
PROVIDERS: PCP Family Medicine; Visit Provider Internal Medicine Cardiovascular Disease
DX: R69 Illness, unspecified (principal)

== ENCOUNTER 2024-09-23 08:00 | Outpatient (RCR) | payer SELFPAY ==
[2024-09-05 00:21] VITALS: BP 142/85; PULSE 70
[2024-09-07 08:40] VITALS: BP 135/78; PULSE 66
[2024-09-09 09:09] VITALS: BP 140/82
[2024-09-14 09:17] VITALS: BP 136/77; PULSE 64
[2024-09-21 08:37] VITALS: BP 148/78; PULSE 59
[2024-09-23 08:21] VITALS: BP 141/78; PULSE 66
== END 2024-10-04 23:59 | disposition home or self-care (01) ==
LOC: CR 08:00
PROVIDERS: PCP Family Medicine; Visit Provider Internal Medicine Cardiovascular Disease
DX: R69 Illness, unspecified (principal)

== ENCOUNTER 2024-11-04 08:00 | Outpatient (RCR) | payer SELFPAY ==
[2024-10-05 00:09] VITALS: BP 141/78; PULSE 66
[2024-10-05 08:25] VITALS: BP 161/85; PULSE 67
[2024-10-07 08:13] VITALS: BP 133/80; PULSE 67
[2024-10-12 09:12] VITALS: BP 133/78; PULSE 69
[2024-10-14 08:31] VITALS: BP 157/79; PULSE 68
[2024-10-19 08:28] VITALS: BP 147/79; PULSE 69
[2024-10-21 08:08] VITALS: BP 143/78; PULSE 68; O2SAT 97
[2024-11-02 08:31] VITALS: BP 161/84; PULSE 69
[2024-11-04 08:30] VITALS: BP 143/75; PULSE 72
== END 2024-11-04 23:59 | disposition home or self-care (01) ==
LOC: CR 08:00
PROVIDERS: PCP Family Medicine; Visit Provider Internal Medicine Cardiovascular Disease
DX: R69 Illness, unspecified (principal)

== ENCOUNTER 2024-11-17 14:52 | Outpatient (REF) | payer MEDICARE, SELFPAY ==
[2024-11-17 21:02] LABS: HCT 41.5 % (40.0-50.0); HGB 14.1 g/dL (13.5-17.5); MCH 31.7 pg (27.0-33.0); MCHC 34.0 % (32.0-36.0); MCV 93 fL (80-95); MPV 9.8 fL (8.0-11.0); Platelet Count 269 10^3/uL (130-400); RBC 4.45 10^6/uL (4.36-5.78); RDW 12.3 % (11.8-14.1); RDW-SD 42.5 fL; WBC 8.80 10^3/uL (4.4-10.8)
[2024-11-17 21:23] LABS: ALT 36 U/L (16-63); AST 21 U/L (15-37); Albumin 4.2 g/dL (3.4-5.0); Alkaline Phosphatase 109 U/L (46-116); Anion Gap 9.6 mmol/L (3-11); BUN 32 mg/dL (7-18); Bilirubin, Total 0.7 mg/dL (0.2-1.0); CO2 26.4 mmol/L (21.0-32.0); Calcium 9.1 mg/dL (8.5-10.1); Chloride 104 mmol/L (98-107); Estimated GFR 51.13 (mL/min/1.73m2); Glucose 116 mg/dL (74-106); Potassium 4.9 mmol/L (3.5-5.1); Sodium 140 mmol/L (136-145); TSH 0.56 uIU/mL (0.36-3.74); Total Protein 7.0 g/dL (6.4-8.2)
[2024-11-17 23:23] LABS: Hemoglobin A1C 6.0 % (<5.7)
[2024-11-18 17:28] LABS: Microalb ug/mg Crea 55.0 ug/mg Cr
== END 2024-11-17 14:53 | disposition home or self-care (01) ==
LOC: NCHCN 14:52
PROVIDERS: PCP Family Medicine; Visit Provider Family Medicine
DX: R73.03 Prediabetes (principal); I10 Essential (primary) hypertension
CPT/HCPCS: 80053; 85027; 82043; 82570; 83036; 84439; 84443

== ENCOUNTER 2024-11-25 08:00 | Outpatient (RCR) | payer SELFPAY ==
[2024-11-05 00:06] VITALS: BP 143/75; PULSE 72
[2024-11-09 08:20] VITALS: BP 174/85; PULSE 69
[2024-11-11 08:27] VITALS: BP 140/79; PULSE 62
[2024-11-16 08:00] VITALS: BP 158/87; PULSE 64
[2024-11-16 08:55] VITALS: BP 148/82
[2024-11-18 08:04] VITALS: BP 142/79; PULSE 76
[2024-11-23 08:46] VITALS: BP 146/82; PULSE 62
[2024-11-25 08:44] VITALS: BP 163/88; PULSE 70
== END 2024-12-05 23:59 | disposition home or self-care (01) ==
LOC: CR 08:00
PROVIDERS: PCP Family Medicine; Visit Provider Internal Medicine Cardiovascular Disease
DX: R69 Illness, unspecified (principal)

== ENCOUNTER 2025-01-04 08:00 | Outpatient (RCR) | payer SELFPAY ==
[2024-12-14 08:19] VITALS: BP 143/80; PULSE 67
[2024-12-16 08:24] VITALS: BP 154/75; PULSE 65
[2024-12-21 08:30] VITALS: BP 179/83; PULSE 68
[2024-12-23 09:16] VITALS: BP 158/82; PULSE 65
[2024-12-28 08:17] VITALS: BP 161/81; PULSE 62
[2024-12-30 08:15] VITALS: BP 141/80; PULSE 67
[2025-01-04 08:09] VITALS: BP 147/78; PULSE 66
== END 2025-01-04 23:59 | disposition home or self-care (01) ==
LOC: CR 08:00
PROVIDERS: PCP Family Medicine; Visit Provider Internal Medicine Cardiovascular Disease
DX: R69 Illness, unspecified (principal)

== ENCOUNTER → 2025-01-19 07:49 | Outpatient (BNVA) | payer MEDICARE, SELFPAY | PROVIDERS: PCP Family Medicine; Referring Provider Family Medicine; Visit Provider Podiatrist | DX: L60.3 Nail dystrophy (principal); B35.1 Tinea unguium; M79.671 Pain in right foot; M79.672 Pain in left foot; L60.0 Ingrowing nail | CPT/HCPCS: 11755; 11750; 11720 ==

== ENCOUNTER 2025-01-19 10:18 | Outpatient (REF) | payer MEDICARE, SELFPAY ==
[2025-01-19 16:47] LABS: Glucose Negative (Negative)
[2025-01-19 16:53] LABS: RBC 0-2 HPF (0-2)
[2025-01-19 16:54] LABS: C & S Indicated? No
[2025-01-19 17:04] LABS: Anion Gap 9.5 mmol/L (3-11); BUN 32 mg/dL (7-18); CO2 27.5 mmol/L (21.0-32.0); Calcium 9.3 mg/dL (8.5-10.1); Chloride 104 mmol/L (98-107); Estimated GFR 51.13 (mL/min/1.73m2); Glucose 106 mg/dL (74-106); Potassium 4.9 mmol/L (3.5-5.1); Sodium 141 mmol/L (136-145)
[2025-01-19 18:27] LABS: Microalb ug/mg Crea 91.6 ug/mg Cr
== END 2025-01-19 10:19 | disposition home or self-care (01) ==
LOC: NCHCN 10:18
PROVIDERS: PCP Family Medicine; Visit Provider Family Medicine
DX: R80.9 Proteinuria, unspecified (principal); N18.31 Chronic kidney disease, stage 3a
CPT/HCPCS: 80048; 81003; 81015; 82043; 82570

== ENCOUNTER 2025-02-03 08:00 | Outpatient (RCR) | payer SELFPAY ==
[2025-01-05 00:20] VITALS: BP 147/78; PULSE 66
[2025-01-06 09:56] VITALS: BP 182/80; PULSE 74
[2025-01-11 08:20] VITALS: BP 156/78; PULSE 65
[2025-01-18 09:26] VITALS: BP 145/83; PULSE 67
[2025-01-20 08:10] VITALS: BP 154/74; PULSE 64
[2025-01-25 08:13] VITALS: BP 173/77; PULSE 66
[2025-01-27 08:22] VITALS: BP 150/77; PULSE 66
[2025-02-01 08:48] VITALS: BP 168/86; PULSE 65
[2025-02-03 08:00] VITALS: BP 157/86; PULSE 67; O2SAT 95
== END 2025-02-04 23:59 | disposition home or self-care (01) ==
LOC: CR 08:00
PROVIDERS: PCP Family Medicine; Visit Provider Internal Medicine Cardiovascular Disease
DX: R69 Illness, unspecified (principal)

== ENCOUNTER → 2025-02-16 11:08 | Outpatient (BNVA) | payer MEDICARE, SELFPAY | PROVIDERS: PCP Family Medicine; Referring Provider Family Medicine; Visit Provider Podiatrist | DX: L60.3 Nail dystrophy (principal); B35.1 Tinea unguium; L60.0 Ingrowing nail; M79.671 Pain in right foot; M79.672 Pain in left foot | CPT/HCPCS: 99213 ==

== ENCOUNTER 2025-02-22 08:00 | Outpatient (RCR) | payer SELFPAY ==
[2025-02-05 00:10] VITALS: BP 157/86; PULSE 67
[2025-02-08 08:15] VITALS: BP 169/76; PULSE 68
[2025-02-15 08:13] VITALS: BP 168/76; PULSE 64
[2025-02-17 08:16] VITALS: BP 173/70; PULSE 68
[2025-02-22 08:19] VITALS: BP 170/79; PULSE 65
== END 2025-03-06 23:59 | disposition home or self-care (01) ==
LOC: CR 08:00
PROVIDERS: PCP Family Medicine; Visit Provider Internal Medicine Cardiovascular Disease
DX: R69 Illness, unspecified (principal)

== ENCOUNTER 2025-02-23 10:35 | Outpatient (REF) | payer MEDICARE, SELFPAY ==
[2025-02-23 15:54] LABS: Anion Gap 6.5 mmol/L (3-11); BUN 26 mg/dL (9-23); CO2 29.5 mmol/L (20.0-31.0); Calcium 9.4 mg/dL (8.3-10.6); Chloride 106 mmol/L (98-107); Glucose 122 mg/dL (74-106); Potassium 5.1 mmol/L (3.5-5.1); Sodium 142 mmol/L (136-145)
== END 2025-02-23 10:36 | disposition home or self-care (01) ==
LOC: LBN 10:35
PROVIDERS: PCP Family Medicine; Visit Provider Family Medicine
DX: N18.31 Chronic kidney disease, stage 3a (principal)
CPT/HCPCS: 80048

== ENCOUNTER 2025-03-15 08:00 | Outpatient (RCR) | payer SELFPAY ==
[2025-03-07 00:07] VITALS: BP 170/79; PULSE 65
[2025-03-08 08:15] VITALS: BP 165/89; PULSE 67
[2025-03-10 08:31] VITALS: BP 160/79; PULSE 70
[2025-03-15 08:42] VITALS: BP 144/78; PULSE 67
[2025-03-17 08:49] VITALS: BP 157/77; PULSE 62
== END 2025-04-06 23:59 | disposition home or self-care (01) ==
LOC: CR 08:00
PROVIDERS: PCP Family Medicine; Visit Provider Internal Medicine Cardiovascular Disease
DX: R69 Illness, unspecified (principal)